=== PATIENT | female | born 1995 | race Hispanic/Latino ===

== ENCOUNTER 2016-12-13 13:51 | Emergency (ER) | payer OTHER, SELFPAY ==
[2016-12-13 17:45] LABS: Bilirubin Negative (Negative); Blood, Urine Negative (Negative); Glucose, Urine (Dipstick) Negative (Negative); Ketone, Urine Negative (Negative); Nitrite Negative (Negative); Protein, Urine (Dipstick) Negative (Neg-Trace)
[2016-12-13 17:52] LABS: Hematocrit 29.5 % (36.0-47.0); Mean Platelet Volume 8.9 fL (7.4-10.4); Red Blood Cell (RBC) Count 4.37 mill/uL (4.20-5.40); White Blood Cell (WBC) Count 7.9 thou/uL (4.8-10.8)
[2016-12-13] MEDS ORDERED: Ketorolac Tromethamine 30 MG/ML VIAL ONE (18:07)
[2016-12-13 18:11] LABS: #Basophils 0.1 thou/uL (0.0-0.2); #Eosinphils 0.2 thou/uL (0.0-0.7); #Lymphocytes 1.8 thou/uL (1.20-3.40); #Monocytes 0.4 thou/uL (0.11-0.59); #Neutrophils 5.4 thou/uL (1.40-6.50); %Basophils 0.8 % (0.0-1.0); %Eosinophils 2.8 % (0.0-10.0); %Lymphocytes 23.2 % (21.0-51.0); %Monocytes 5.1 % (0.0-10.0); Anisocytosis SLIGHT = 6-15 cells (100X) (0-5/hpf); Hypochromia SLIGHT = 6-15 cells (100X) (0-5/hpf); Microcytosis SLIGHT = 6-15 cells (100X) (0-5/hpf); Ovalocytes SLIGHT = 2-5 cells (100X) (0-1/hpf); Poikilocytosis SLIGHT = 6-15 cells (100X) (0-5/hpf); Tear Drops MODERATE= 6-15 cells (100X) (0-1/hpf)
[2016-12-13 18:13] LABS: ALT (SGPT) 23 U/L (8-55); AST (SGOT) 30 U/L (5-34); Alkaline Phosphatase 121 U/L (40-150); Anion Gap 11 mmol/L (10-20); BUN (Urea Nitrogen) 7 mg/dL (7.0-18.7); Bilirubin, Total 0.3 mg/dL (0.2-1.2); CK (CPK) 59 U/L (29-168); Calc. Creatinine Clearance 0 mL/min (70-130); Calcium 9.1 mg/dL (7.8-10.44); Carbon Dioxide 26 mmol/L (22-29); Chloride 105 mmol/L (98-107); Estimated GFR-MDRD Greater than 90; Globulin 4.5 g/dL (2.4-3.5); Lipase 84 U/L (8-78); Protein, Total 8.2 g/dL (6.0-8.3)
--- NOTE | 2016-12-13 19:30 | RAD ---
AP VIEW CHEST: 12/13/16 HISTORY: Dizziness, altered mental status. AP view chest is obtained. The lungs are well aerated. No evidence of active intrathoracic disease seen. No evidence of effusio ns, pneumonia or pneumothorax seen. IMPRESSION: Unremarkable AP view chest. POS: [facility]
== END 2016-12-13 18:55 | disposition home or self-care (01) ==
LOC: ERS 13:51
DX: D64.9 Anemia, unspecified (principal); F32.9 Major depressive disorder, single episode, unspecified; F17.200 Nicotine dependence, unspecified, uncomplicated
CPT/HCPCS: 36415; 71010; 80053; 81003; 82550; 83690; 84703; 85025; 93005; 99406; J1885

== ENCOUNTER 2017-09-09 23:19 | Emergency (ER) | payer SELFPAY ==
[2017-09-10 00:01] LABS: ALT (SGPT) 19 U/L (8-55); AST (SGOT) 31 U/L (5-34); Albumin 3.8 g/dL (3.5-5.0); Alkaline Phosphatase 129 U/L (40-150); Anion Gap 13 mmol/L (10-20); BUN (Urea Nitrogen) 12 mg/dL (7.0-18.7); Bilirubin, Total 0.5 mg/dL (0.2-1.2); Calc. Creatinine Clearance 0 mL/min (70-130); Calcium 9.1 mg/dL (7.8-10.44); Carbon Dioxide 24 mmol/L (22-29); Chloride 105 mmol/L (98-107); Estimated GFR-MDRD 66; Globulin 4.8 g/dL (2.4-3.5); Glucose 133 mg/dL (70-105); Potassium 3.8 mmol/L (3.5-5.1); Protein, Total 8.6 g/dL (6.0-8.3); Sodium 138 mmol/L (136-145)
[2017-09-10 00:11] LABS: Bilirubin Small (Negative); Blood, Urine Negative (Negative); Clarity CLOUDY (Clear); Glucose, Urine (Dipstick) Negative (Negative); Leukocyte Negative (Negative); Nitrite Negative (Negative); Protein, Urine (Dipstick) 30 mg/dL (Neg-Trace); Specific Gravity, Urine 1.031 (1.002-1.036)
[2017-09-10 00:13] LABS: Bacteria/HPF None Seen HPF (None Seen); Hyaline Casts/LPF 0-3 HYALINE CAST LPF (0-3 Hyaline); RBC/HPF None Seen HPF (0-3); Squamous Epithelial None Seen HPF (0-3); WBC/HPF None Seen HPF (0-3)
[2017-09-10 00:31] LABS: Pregnancy Test - Urine (BHCG) Negative (Negative); Pregu Control Background? CLEAR/WHITE (CLR/WHITE); Pregu Control Bar Appear? YES (CONTROL BAR); Specific Gravity 1.031 (1.002-1.036)
[2017-09-10 00:42] LABS: #Lymphocytes 1.3 thou/uL (1.20-3.40); #Monocytes 0.5 thou/uL (0.11-0.59); %Basophils 0.5 % (0.0-1.0); %Eosinophils 0.4 % (0.0-10.0); %Lymphocytes 12.3 % (21.0-51.0); %Monocytes 4.3 % (0.0-10.0); %Neutrophils 82.6 % (42.0-75.0); Anisocytosis SLIGHT = 6-15 cells (100X) (0-5/hpf); Crenated RBC SLIGHT = 1-5 cells (100X) (None Seen); Hemoglobin 7.6 g/dL (12.0-16.0); MDiff Complete? YES; Mean Corpuscular HGB CONC 30.1 g/dL (32.0-36.0); Mean Corpuscular Hemoglobin 18.8 pg (27.0-31.0); Mean Corpuscular Volume 62.4 fL (78.0-98.0); Mean Platelet Volume 9.1 fL (7.4-10.4); Microcytosis SLIGHT = 6-15 cells (100X) (0-5/hpf); PLT Morphology Comment Appears Adequate; Platelet Count 461 thou/uL (130-400); Red Blood Cell (RBC) Count 4.03 mill/uL (4.20-5.40); Reflex for Review?? YES; White Blood Cell (WBC) Count 10.9 thou/uL (4.8-10.8)
[2017-09-10] MEDS ORDERED: Ondansetron ODT 4 MG TAB ONE (03:27)
[2017-09-10] MEDS ORDERED: Lidocaine Viscous Sol 2% 15 ml UD Cup ONE (03:27)
[2017-09-10] MEDS ORDERED: Mag-Al 1200 mg/1200 mg/30 ML UDCUP ONE (03:27)
== END 2017-09-10 06:31 | disposition left against medical advice (07) ==
LOC: ERS 23:19
DX: R10.13 Epigastric pain (principal); D64.9 Anemia, unspecified; Z87.891 Personal history of nicotine dependence
CPT/HCPCS: 36415; 80053; 81003; 81015; 81025; 83690; 85025; 85060; 96360; Q0162

== ENCOUNTER 2017-09-12 12:48 | Inpatient (IN) | payer SELFPAY ==
[~2017-09-12 12:48] MED LIST: ISOVUE-370 76%-LOCM 1 ML ONE
[2017-09-12 14:31] LABS: #Eosinphils 0.1 thou/uL (0.0-0.7); #Lymphocytes 1.4 thou/uL (1.20-3.40); #Monocytes 0.4 thou/uL (0.11-0.59); %Basophils 0.4 % (0.0-1.0); %Eosinophils 2.1 % (0.0-10.0); %Lymphocytes 23.4 % (21.0-51.0); %Monocytes 7.2 % (0.0-10.0); %Neutrophils 66.9 % (42.0-75.0); Hemoglobin 6.7 g/dL (12.0-16.0); Mean Corpuscular HGB CONC 28.7 g/dL (32.0-36.0); Mean Corpuscular Hemoglobin 18.5 pg (27.0-31.0); Mean Corpuscular Volume 64.4 fL (78.0-98.0); Platelet Count 353 thou/uL (130-400)
[2017-09-12 14:36] LABS: BHCG - Serum Negative (NEGATIVE); Pregs Control Background? CLEAR/WHITE (CLR/WHITE); Pregs Control Bar Appear? YES (CONTROL BAR)
[2017-09-12 14:50] LABS: ALT (SGPT) 13 U/L (8-55); AST (SGOT) 21 U/L (5-34); Albumin 3.4 g/dL (3.5-5.0); Alkaline Phosphatase 103 U/L (40-150); Anion Gap 8 mmol/L (10-20); BUN (Urea Nitrogen) 4 mg/dL (7.0-18.7); Bilirubin, Total 0.3 mg/dL (0.2-1.2); CK (CPK) 82 U/L (29-168); Calc. Creatinine Clearance 0 mL/min (70-130); Carbon Dioxide 28 mmol/L (22-29); Chloride 107 mmol/L (98-107); Estimated GFR-MDRD Greater than 90; Globulin 4.1 g/dL (2.4-3.5); Glucose 99 mg/dL (70-105); Potassium 3.9 mmol/L (3.5-5.1); Protein, Total 7.5 g/dL (6.0-8.3); Sodium 139 mmol/L (136-145)
[2017-09-12 14:54] LABS: Anisocytosis SLIGHT = 6-15 cells (100X) (0-5/hpf); Elliptocytes SLIGHT = 2-5 cells (100X) (0-1/hpf); Hypochromia SLIGHT = 6-15 cells (100X) (0-5/hpf); MDiff Complete? YES; Microcytosis MODERATE=15-30 cells (100X) (0-5/hpf); Ovalocytes SLIGHT = 2-5 cells (100X) (0-1/hpf); PLT Morphology Comment Appears Adequate; Poikilocytosis SLIGHT = 6-15 cells (100X) (0-5/hpf); Polychromasia SLIGHT = 2-3 cells (100X) (0-2/hpf); Schistocytes SLIGHT = 2-5 cells (100X) (0-1/hpf)
--- NOTE | 2017-09-12 15:28 | CT ---
CT ANGIOGRAM THORAX WITH IV CONTRAST AND 3D RECONSTRUCTIONS: Date: 09-12-17 History: Dyspnea. Shortness of breath for one day. Bilateral arm weakness. Diaphoresis. Comparison: None available. FINDINGS: No filling defects are seen in the pulmonary arteries to suggest a pulmonary embolus. There is fluid seen within the anterior superior mediastinum adjacent to the thoracic aorta. This landers s demonstrate fluid attenuation and is likely attributable to extension of pericardial recess in this region. Thoracic aorta is normal in caliber without evidence of an aortic dissection. The lungs are clear. The wall of the gallbladder is edematous and there is mild inflammatory changes seen in the region of the portahepatis and adjacent to the region of the neck of the gallbladder. Findings may be related to cholecystitis in the correct clinical scenario. There is mild nonspecific stranding adjacent to th e periumbilical vein and adjacent to the anterior aspect of the left hepatic lobe. Images of the upper abdomen demonstrates normal CT appearance for arterial phase imaging. IMPRESSION: 1. Gallbladder wall edema and adjacent inflammatory changes. Findings may potentially be related to c holecystitis in the correct clinical scenario. Right upper quadrant ultrasound is suggested for channing hometh er evaluation. No biliary ductal dilatation is appreciated. 2. No CT evidence of a pulmonary embolus. 3. Above findings discussed with Dr. Guo in the Emergency Department on 09-12-17 at 1502 hours. POS: [facility]
[2017-09-12 16:57] LABS: Prothrombin Time 13.1 SEC (12.0-14.7)
[2017-09-12 17:02] LABS: PTT 31.7 SEC (22.9-36.1)
--- NOTE | 2017-09-12 18:10 | ULT ---
RIGHT UPPER QUADRANT ULTRASOUND 09/12/17 HISTORY: Shortness of breath and abdominal pain for one day. Bilateral arm weakness. Recent CT angiogram of est demonstrated a normal appearance of the gallbladder. FINDINGS: As noted on the CTA examination, the gallbladder demonstrates diffuse wall thickening with edema of t he gallbladder wall. Gallbladder wall thickness is 1.7 cm. Only a small lumen of the gallbladder is a ppreciated. No definite gallbladder calculus is seen. There is no pericholecystic fluid identified on this exam. Common duct is normal in caliber measuring 2.3 cm. The liver is enlarged in craniocaudal dimensions measuring 18.5 cm. Liver otherwise demonstrates norm al sonographic appearance. The pancreas is mostly obscured and not well evaluated on this exam. The visualized portions of the IVC and right kidney demonstrate a normal sonographic appearance. The right kidney measures 9 cm in length. IMPRESSION: 1. Severely thickened and edematous gallbladder wall with greatest thickening in the region of t he gallbladder fundus measuring 1.7 cm. The findings could be related to cholecystitis in the correct clinical scenario, but hypoproteinemia, liver disease, or other etiologies for thickened gallbladder wall are a possibility. 2. Common duct is normal in caliber. 3. Hepatomegaly. POS: [facility]
--- NOTE | 2017-09-12 20:44 | PDOC.FPRHP ---
- History of Present Illness Chief Complaint: arm pain and vaginal spotting History of Present Illness: Ms. Diego is a 22YO female who presented to the ED today with a chief complaint of bilateral arm pain, abdominal pain, and vaginal spotting that has been ongoing for the last 2 days. Per the patient, 2 days ago she had sudden onset constant abdominal pain that she rated at 12/10 in severity. She says that the pain started in her upper abdomen and radiated all the way down to her lower abdomen. The patient could not identify any exacerbating or alleviating factors and did not try taking anything for it. She reports never having had abdominal pain like this before. In addition, the patient started to have vaginal spotting and says her LMP ended about one week ago. She denied any associated vomiting, constipation, or diarrhea but did endorse some nausea. She then decided to come to the ED and they told her that her Hgb was low. However, she left before being treated or worked up because they were having trouble starting an IV on her. Over the next 2 days the patient continued to have abdominal pain and spotting and developed B/L arm pain that was slightly worse in her right arm. She also noticed some bruising on her arms. Today the patient decided to return to the ED as after started to become progressively more fatigued and developed some SOB. She also endorses some associated diaphoresis and nausea. The patient has a menstrual history significant for abnormal uterine bleeding as she reports having very heavy periods lasting 7 days that required her to use about 36 super tampons per cycle. She says she started menses at ~ age 7 and was having this heavy menstrual bleeding up until about 1.5 years ago. For the past year and a half she reports having much director safety periods lasting about 4 days requiring her to use about 2-3 regular tampons per day. She also has a FH significant for anemia in her sister. - Allergies/Adverse Reactions Allergies Allergy/AdvReac Type Severity Reaction Status Date / Time No Known Allergies Allergy Verified 09/13/17 03:22 - Home Medications Medication Instructions Recorded Confirmed Type Ascorbic Acid [Vitamin C] 1,000 mg PO DAILY #30 tab 09/13/17 Rx Docusate [Colace] 100 mg PO BID #60 cap 09/13/17 Rx Ferrous Sulfate [Feosol] 325 mg PO BID- #60 tab 09/13/17 Rx - History PMHx: Anemia PSHx: None FHx: Anemia - sister DM - grandmother Social: Admits to former tobacco abuse but says she quit ~1 week ago. Denies any drug abuse. Admits to EtOH use on the weekends. - Review of Systems General: reports: fatigue. denies: fever/chills, night sweats Eyes: denies: eye pain, vision changes ENT: denies: nasal congestion, rhinorrhea Respiratory: reports: shortness of breath. denies: cough Cardiovascular: reports: chest pain Gastrointestinal: reports: nausea, abdominal pain. denies: vomiting, diarrhea, constipation Genitourinary: reports: other (vaginal spotting). denies: dysuria Skin: reports: other (bruising). denies: jaundice Musculoskeletal: reports: pain (in B/L arms and neck), other (no tenderness) Neurological: reports: other (no dizziness or lightheadedness). denies: numbness, weakness Psychological: denies: anxiety, depression - Vital signs BP: 120/87 HR: 73 RR: 18 Pox: 100% on RA Wt: 70kg - Physical Exam Constitutional: NAD, awake, alert and oriented, well developed HEENT: normocephalic and atraumatic (conjunctival pallor), EOMI, conjunctiva clear, grossly normal vision, grossly normal hearing Heart: RRR, normal S1/S2, no edema Lungs: CTAB, no respiratory distress, good air movement Abdomen: soft, non-tender, bowel sounds present Musculoskeletal: normal structure, normal tone, other (slightly decreased ROM in R arm 2/2 pain) Neurological: no focal deficit, CN II-XII intact Skin: good turgor, other Heme/Lymphatic: other (Brusing over L antecubital fossa) Psychiatric: normal mood and affect FMR H&P: Results - Labs Result Diagrams: 09/14/17 05:13 09/13/17 05:15 Lab results: WBC 6.0 thou/uL (4.8-10.8) 09/12/17 14:23 Hgb 6.7 g/dL (12.0-16.0) L 09/12/17 14:23 Hct 23.2 % (36.0-47.0) L 09/12/17 14:23 MCV 64.4 fL (78.0-98.0) L 09/12/17 14:23 Plt Count 353 thou/uL (130-400) 09/12/17 14:23 Neutrophils % 66.9 % (42.0-75.0) 09/12/17 14:23 Sodium 139 mmol/L (136-145) 09/12/17 14:23 Potassium 3.9 mmol/L (3.5-5.1) 09/12/17 14:23 Chloride 107 mmol/L (98-107) 09/12/17 14:23 Carbon Dioxide 28 mmol/L (22-29) 09/12/17 14:23 BUN 4 mg/dL (7.0-18.7) L 09/12/17 14:23 Creatinine 0.75 mg/dL (0.6-1.1) 09/12/17 14:23 Glucose 99 mg/dL (70-105) 09/12/17 14:23 Calcium 9.0 mg/dL (7.8-10.44) 09/12/17 14:23 Total Bilirubin 0.3 mg/dL (0.2-1.2) 09/12/17 14:23 AST 21 U/L (5-34) 09/12/17 14:23 ALT 13 U/L (8-55) 09/12/17 14:23 Alkaline Phosphatase 103 U/L (40-150) 09/12/17 14:23 Creatine Kinase 82 U/L (29-168) 09/12/17 14:23 Serum Total Protein 7.5 g/dL (6.0-8.3) 09/12/17 14:23 Albumin 3.4 g/dL (3.5-5.0) L 09/12/17 14:23 - Radiology Interpretation US - abdomen Status: report reviewed by me Additional comment: Severely thickened and edematous gallbladder; Normal common bile duct; hepatomegaly Other Status: report reviewed by me Additional comment: CTA of chest- inflamed gallbladder; no evidence of a PTE FMR H&P: A/P - Problem List (1) Symptomatic anemia Status: Acute Priority: High Code(s): D64.9 - ANEMIA, UNSPECIFIED Assessment and Plan: - Likely 2/2 iron deficiency as MCV is 64 & MHC is also low at 18 and patient has a history of abnormal uterine bleeding. Will transfuse 2 units of PRBCs, give ferrous sulfate infusion, and order iron studies. Pelvic exam was significant for spotting consistent with patient's history but no polyps or other sources to explain her abnormal bleeding were visualized on exam. Would strongly consider doing a transvaginal U/S in an outpatient setting to r/o any uterine process that could explain her abnormal bleeding and anemia. - Will do complete workup to r/o other potential causes by checking a vitamin B12, RBC folate, Hgb electrophoresis, and peripheral smear. (2) Abdominal pain Status: Acute Code(s): R10.9 - UNSPECIFIED ABDOMINAL PAIN Qualifiers: Abdominal location: upper abdomen, unspecified Qualified Code(s): R10.10 - Upper abdominal pain, unspecified Assessment and Plan: - Likely due to cholecystitis as seen on abdominal U/S. - HIDA scan ordered for in the morning. General surgery is on board. - Will keep her on protonix per general surgery's orders. Will order zofran for nausea and tylenol for pain PRN. FMR H&P: Upper Level - Pertinent history 22 yo HF PMH anemia and dysfunctional uterine bleeding. Presents as ER bounceback with CC of SOB and abdominal pain. States pain started in upper abdomen and radiated to lower abdomen. Had resolved by the time of my examination. In regards to her anemia, state until 18 months ago she had heavy menstrual cycles requiring 5-6 tampons daily for 7 days. In the past 18 months, her bleeding has slowed in volume and number of days. Was seen in ER 3 days ago and had hemoglobin of 7.6. Was given instructions to follow up outpatient. ER: Labs, CTA- chest, RUQ US. Gen surg was consulted in ER and wanted inpatient HIDA scan. - Pertinent findings Vitals: WNL GEN: NAD ENT: conjunctival palor CV: RRR no murmur Lung: CTA-B, normal effort : normal appearing vaginal mucosa with scant amount of blood in vaginal vault. Unable to completely assess the cervix due to patient discomfort but anterior portion appeared normal. Labs: Hemoglobin 6.7, MCV 64 RUQ US: Thickened and edematous gallbladder, otherwise WNL CTA-Lung: No PE - Plan Date/Time: 09/12/172021 I, Angel Sidhu MD, have evaluated this patient and agree with findings/plan as outlined by international logistics manager resident. Pertinent changes/additions are listed here. 1. Symptomatic Microcytic anemia: Type, cross, and transfuse 2 units PRBCs. Recheck H&H 4 hours post transfusion. Additionally, will give iron infusion. Will give lasix if signs of fluid overload. Check peripheral smear, iron, TIBC , ferritin, B12, RBC folate, and hemoglobin electrophoresis. Likely due to history of heavy menstrual bleeding but will attempt to better characterize due to family history. Consider pelvic US to evaluate for polyps vs fibroids. May need outpatient MILK TRUCK DRIVER evaluation. 2. Possible cholecystitis: general surgery consulted. HIDA scan in the morning. 3. Diet: NPO @0000, maintenance fluids given 4. PPx: none 5. CODE: Full Dispo: Inpatient, medical, >[address] Cornejo. Attending Addendum - Attending Addendum Date/Time: 09/12/17 [id number] I personally evaluated the patient and discussed the management with Dr. Gibson and Dr. Sidhu I agree with the History, Examination, Assessment and Plan documented above with any addition or exceptions noted below. Healthy 22 yo female admitted for symptomatic anemia. Likely iron deficiency but reports a family history of anemia and chronic history of anemia. Patient appears to have possible etiology related to DUB. Studies pending. Would evaluate with hemoglobin electrophoresis as well. Gen surg to eval due to gallbladder disease. Will start with 1 unit pRBCs. Does not appear to have anemia related to GI disease but would consider as cause. FOBT ordered. Also consider malabsorptive disease. Mamta
[2017-09-12] MEDS ORDERED: Ondansetron ODT 4 MG TAB PO PRN (21:04)
[2017-09-12] MEDS ORDERED: Acetaminophen 500 MG TAB PO PRN (21:05)
[2017-09-12 21:59] LABS: Band 5 % (5-11); Eosinophils 3 % (0-10); Hemoglobin 9.7 g/dL (12.0-16.0); Hypochromia MODERATE=16-30 cells (100X) (0-5/hpf); Lymphocytes 31 % (21-51); MDiff Complete? YES; Mean Corpuscular HGB CONC 29.9 g/dL (32.0-36.0); Mean Corpuscular Hemoglobin 20.2 pg (27.0-31.0); Mean Corpuscular Volume 67.6 fL (78.0-98.0); Mean Platelet Volume 9.5 fL (7.4-10.4); Microcytosis MODERATE=15-30 cells (100X) (0-5/hpf); Monocytes 4 % (0-10); Neutrophil 57 % (42-75); Nucleated RBC 1 % (0); Ovalocytes SLIGHT = 2-5 cells (100X) (0-1/hpf); PLT Morphology Comment Appears Adequate; Platelet Count 400 thou/uL (130-400); RBC Distribution Width 20.8 % (11.5-14.5); Red Blood Cell (RBC) Count 4.79 mill/uL (4.20-5.40); White Blood Cell (WBC) Count 5.5 thou/uL (4.8-10.8)
[2017-09-12 22:02] LABS: Iron 26 ug/dL (50-170); Iron Binding Capacity, Total 384 mcg/dL (265-497)
[2017-09-12] MEDS: Sodium Chloride 0.9% 1,000 ML IV SCH (22:14)
[2017-09-12] MEDS: Sodium Ferric Gluconate 250 MG in Sodium Chloride 0.9% 100 ML IVPB SCH (22:18)
[2017-09-12] MEDS: Pantoprazole 40 MG VIAL IVP SCH (22:18)
--- NOTE | 2017-09-12 22:40 | HP ---
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 She is unemployed. She is 0, para 0. She presents with a history of anemia without history of hematemesis, blood per stool or abn ormal stools. There is no history of black stools. She was found to have a hemoglobin of 6.7. Prev ious hemoglobin has at this hospital been 9.7-7.6. Last hemoglobin on 09/09/2017. Patient states he r menstruation is not heavy. She also complained of abdominal pain and some dyspnea. Dr. Marcial Guo saw her. Her renal function tests and liver function tests were normal. CT angio was obtained and w as unremarkable for PE. There is gallbladder edema and adjacent inflammatory changes. There is no e vidence of embolus. Patient subsequently went on to have an abdominal ultrasound. This revealed stephany e edema, no stones, normal bile duct caliber. Patient reports abdominal pain, epigastric. There has been no history of prior epigastric pain. ALLERGIES: None. TOBACCO: Occasionally. MEDICATIONS: None. PAST SURGICAL HISTORY: Noncontributory. PAST MEDICAL HISTORY: Noncontributory. REVIEW OF SYSTEMS: Noncontributory. PHYSICAL EXAMINATION: VITAL SIGNS: Blood pressure 110/67, respiratory rate 16, heart rate 72. HEENT: Unremarkable. LUNGS: Clear to auscultation. CARDIAC: Regular rate and rhythm without murmur or gallop. ABDOMEN: Soft. Mild tenderness in the right abdomen, left abdomen. No peritoneal signs. Negative Ren sign. EXTREMITIES: Unremarkable. ASSESSMENT AND PLAN: Anemia of uncertain etiology. Abdominal pain of uncertain etiology. Ultrasoun d of her gallbladder. It does not reveal gallstones. There is no prior history of biliary colic. W ith the CAT scan findings with her epigastric pain, HIDA scan ejection fraction could be obtained jeri orrow. I will be out tomorrow. Dr. Robertson will be covering for me. We would recommend consulting Gastroenterology for her GI workup.
[2017-09-12 22:41] VITALS: BMI 26.7
[2017-09-13 01:12] LABS: Hemoglobin 8.9 g/dL (12.0-16.0)
[2017-09-13] MEDS: Sodium Chloride 0.9% 1,000 ML IV SCH ×3 (04:00→20:54)
[2017-09-13 06:15] LABS: ALT (SGPT) 14 U/L (8-55); AST (SGOT) 19 U/L (5-34); Albumin 3.2 g/dL (3.5-5.0); Alkaline Phosphatase 94 U/L (40-150); Anion Gap 9 mmol/L (10-20); BUN (Urea Nitrogen) 4 mg/dL (7.0-18.7); Bilirubin, Total 0.5 mg/dL (0.2-1.2); Calc. Creatinine Clearance 131 mL/min (70-130); Calcium 8.8 mg/dL (7.8-10.44); Carbon Dioxide 26 mmol/L (22-29); Chloride 107 mmol/L (98-107); Estimated GFR-MDRD Greater than 90; Glucose 85 mg/dL (70-105); Potassium 3.7 mmol/L (3.5-5.1); Protein, Total 7.2 g/dL (6.0-8.3); Sodium 138 mmol/L (136-145)
--- NOTE | 2017-09-13 06:59 | PDOC.FM ---
- Subjective Subjective: Patient is resting comfortably. She reports feeling much better today. Abd pain and SOB is resolved. No acute events overnight. - Objective MAR Reviewed: Yes Vital Signs & Weight: Vital Signs (12 hours) Temp Pulse Resp BP Pulse Ox 09/13/17 04:05 98 F 58 L 16 99/70 96 09/12/17 23:54 98.8 F 61 20 94/63 99 09/12/17 21:14 99.1 F 52 L 20 97 09/12/17 21:05 99.1 F 52 L 20 93/62 97 Weight Weight 68.492 kg Result Diagrams: 09/13/17 01:04 09/13/17 05:15 <Anamaria Vásquez - Last Filed: 09/13/17 08:43> - Objective Vital Signs & Weight: Vital Signs (12 hours) Temp Pulse Resp BP Pulse Ox 09/13/17 08:00 98.1 F 71 16 96 09/13/17 07:15 98.1 F 71 16 101/66 96 09/13/17 04:05 98 F 58 L 16 99/70 96 Weight Weight 68.492 kg Result Diagrams: 09/13/17 01:04 09/13/17 05:15 <Gertrude Abdalla - Last Filed: 09/13/17 12:49> Phys Exam - Physical Examination Constitutional: NAD HEENT: moist MMs conjunctival pallor Respiratory: no wheezing, no rales, clear to auscultation bilateral Cardiovascular: RRR, no significant murmur Gastrointestinal: soft, non-tender Musculoskeletal: no edema, pulses present Neurological: moves all 4 limbs Psychiatric: A&O x 3 <Anamaria Vásquez - Last Filed: 09/13/17 08:43> Dx/Plan (1) Symptomatic anemia Code(s): D64.9 - ANEMIA, UNSPECIFIED Status: Acute (2) Iron deficiency anemia Code(s): D50.9 - IRON DEFICIENCY ANEMIA, UNSPECIFIED Status: Acute (3) Abdominal pain Code(s): R10.9 - UNSPECIFIED ABDOMINAL PAIN Status: Acute QualifierTitle: Abdominal location: upper abdomen, unspecified Qualified Code(s): R10.10 - Upper abdominal pain, unspecified - Plan Plan: Symptomatic Anemia 2/2 Fe Deficiency Anemia - s/p 1u pRBC's last night. Initial Hg 6.7, today 8.9. - likely caused by heavy menstrual cycles - could be a component of poor nutrition with low albumin. prealbumin pending - S/p Fe transfusion x2 - Continue oral Ferrous Sulfate, Colace, and Vit C - will likely need tv u/s outpatient Abdominal Pain with Gallbladder Edematous Changes on U/S - HIDA scan this morning - Abd pain has since resolved - Gen Surg and GI on board - outpatient vs inpatient management Dispo: d/c pending HIDA scan and recs. <Anamaria Vásquez - Last Filed: 09/13/17 08:43> Attending Addendum - Attending Addendum Date/Time: 09/13/17 [id number] I personally evaluated the patient at 0940 am and discussed the management with Dr. Vásquez I agree with the History, Examination, Assessment and Plan documented above with any addition or exceptions noted below. Symptomatic iron deficiency anemia- probably combination of dietary deficiency and menorrhagia. S/P 1 unit PRBC and IV iron replacement. Will d/c home on oral iron. Abdominal pain- now resolved- HIDA scan pending this am. Expect d/c this afternoon with o/p f/u <Gertrude Abdalla - Last Filed: 09/13/17 12:49>
[2017-09-13] MEDS: Pantoprazole 40 MG VIAL IVP SCH ×2 (09:14→20:56)
[2017-09-13] MEDS: Docusate 100 MG CAP PO SCH ×2 (09:29→20:56)
[2017-09-13] MEDS: Ascorbic Acid 500 mg Chewable Tablet PO SCH (09:29)
[2017-09-13] MEDS: Sodium Ferric Gluconate 250 MG in Sodium Chloride 0.9% 100 ML IVPB SCH (13:41)
--- NOTE | 2017-09-13 14:43 | NM ---
NUCLEAR MEDICINE HEPATOBILIARY SCAN: Date: 09/13/17 HISTORY: 22-year-old female with epigastric pain and severe mural thickening of gallbladder found on ultrasoun d and CT. TECHNIQUE: [id number] dose: 4.5 mCi Kinevac (CCK analog) dose: 1.3 mcg x 2 Because of prolonged NPO status, patient was pretreated with Kinevac prior to imaging. [id number] injected IV. Dynamic anterior scintigraphy of abdomen for 1 hour. Kinevac injected a gain. Additional dynamic anterior scintigraphy of abdomen. Counts obtained over gallbladder. Time-ac tivity curve generated. FINDINGS: There is normal uptake in the liver. Washout of activity from the liver is somewhat slow. Activity be gins to fill the gallbladder lumen at an appropriate time, approximately 11 minutes. The gallbladder fills normally. Bowel activity is visualized at approximately 33 minutes. The gallbladder ejection fr action is 23%. IMPRESSION: 1. Abnormally low gallbladder ejection fraction of 23%, representing gallbladder dysfunction. 2. Somewhat delayed washout of liver: recommend clinical correlation regarding possible hepatocellula r dysfunction. POS: [facility]
[2017-09-13] MEDS: Ferrous Sulfate 325 MG TAB PO SCH (16:38)
--- NOTE | 2017-09-14 00:23 | CON ---
DATE OF CONSULTATION: 09/13/2017 REASON FOR CONSULTATION: Iron deficiency anemia, reported abdominal pain. HISTORY OF PRESENT ILLNESS: Ms. Diego is a 22-year-old who came to the emergency room on 09/09/2017 with complaints of abdominal pain for 1 day, it was in the epigastrium. It felt like she had been punched in the stomach. She had also had some spotting at the end of her period, which is little bit unusual for her. She denied any other abdominal pain or nausea or reflux. She had no lower abdominal symptoms. Apparently, she had an IV started and then it made her feel funny, so she decided to leave. She returned to the ER yesterday with complaints of shortness of breath and bilateral leg pain. This has been going on for a couple of days. She felt this is related to the IV when she had been in the emergency room. She was not complaining about abdominal pain at that time. Here, she was found to have a hemoglobin of 6.7, had been 7.6 on the when she was here. Her MCV was low at 62. Her platelet count was 460. Her hemoglobin was 10. INR was normal. Comprehensive metabolic profile was notable for a BUN of 4, creatinine 0.72. Electrolytes were otherwise normal. Liver function tests were normal. test was negative. B12 was normal. Lipase was normal. She was low on serum iron 26, ferritin 5.8. Urinalysis was negative. Urine drug screen was not performed. The patient was admitted and given a transfusion. She also had several imaging studies performed. First, a CAT scan of the chest and thorax was done, because she was short of breath and no pulmonary embolus was seen, but there was some gallbladder wall edema. So then, she had an ultrasound of her gallbladder and this showed a thickened gallbladder wall and the fundus up to 1.7 cm, also she had some hepatomegaly. Regarding her abdominal pain, that is gone today. She was seen by Dr. Acuna, he got a HIDA scan, which was done today. She denies any reproduction of symptoms with that scan and the HIDA scan showed an ejection fraction of 23%, which was read as low. Presently, she complains of no pain. She is wondering if she needed to get home. She wants to eat. She has been on liquids. She has no history of melena, hematochezia, hematemesis, or reflux. She denies NSAID use. She does not drink. She used to drink a lot and do drugs including cocaine and marijuana, but does not do that anymore. She states also many years ago, she had very heavy menstrual cycles, but now she has a menstrual cycle lasting 4 days once a month, uses about 16 or 17 tampons, but has no heavy clots or associated pain. She denies any change in bowel function. She denies any weight loss or change in appetite. She has formed stools once daily. PAST MEDICAL HISTORY: History of substance abuse including cocaine, marijuana. She denies doing this now. History of heavy alcohol use in the past. She denies doing that now. History of chronic iron deficiency anemia. ALLERGIES: None known. HOME MEDICATIONS: None. PAST SURGICAL HISTORY: Negative. FAMILY HISTORY: She has a sister who is anemic, but only when she has her kids. There is no family history of celiac disease, colorectal cancer, inflammatory bowel disease. REVIEW OF SYSTEMS: As per admission HPI. PRESENT MEDICATIONS: Tylenol, vitamin C, Colace, iron, Zofran, Protonix, normal saline. PHYSICAL EXAMINATION: VITAL SIGNS: Temperature is 99, pulse 65, blood pressure 106/69. GENERAL: The patient is sitting in bed. LUNGS: Clear. HEART: Regular rate and rhythm without clicks or murmurs. ABDOMEN: Soft and nontender. There is no rebound. There is no guarding. EXTREMITIES: No clubbing, cyanosis, or edema. There is no palpable hepatosplenomegaly. LABORATORY STUDIES: Otherwise, AST and ALT are 19 and 14, albumin 3.2, globulin little bit elevated at 4. ASSESSMENT: Profound microcytic anemia with iron deficiency in a 22-year-old female. This is likely related to menstrual loss. She states that about 3-4 years ago, she had very heavy periods, but she does not anymore. She denies any overt gastrointestinal bleeding, melena, hematochezia, hematemesis, or even gastrointestinal symptoms other than abdominal pain which has now resolved. She denies heavy NSAID use. Differential diagnosis would include malabsorption , poor iron intake, gastrointestinal blood loss, menstrual blood loss. RECOMMENDATIONS: 1. Hemoccult stool. I have offered her an EGD tomorrow with regard to the epigastric pain she had had. She is thinking about that. 2. Fatty liver. She has got a little bit of a low albumin and high globulin gap. She has normal liver function tests. With her history of heavy drug use in the past, I would recommend screening for hepatitis B and C and HIV. 3. In regard to her gallbladder appearance, I do not know how to explain that. She has no pain there now. This may have been due to profound anemia and low oncotic pressures. She also some fatty liver, possibly related to her previous substance abuse. 4. I would consider evaluation of HIV and hepatitis B and C with regard to her previous history of substance abuse, fatty liver, and elevated globulin gap. 5. We will plan for EGD if the patient stays tomorrow. 6. At this point in time, she has no pain. I am not sure if there is any role for cholecystectomy. The HIDA scan is little bit low, but she had no reproduction of symptoms and she has no signs of acute cholecystitis. We will follow along with you. MTDD
[2017-09-14] MEDS: Sodium Chloride 0.9% 1,000 ML IV SCH ×3 (03:01→18:37)
[2017-09-14 06:17] LABS: Hemoglobin 8.2 g/dL (12.0-16.0); Mean Corpuscular HGB CONC 30.3 g/dL (32.0-36.0); Mean Corpuscular Hemoglobin 20.4 pg (27.0-31.0); Mean Corpuscular Volume 67.2 fL (78.0-98.0); Mean Platelet Volume 9.3 fL (7.4-10.4); Platelet Count 374 thou/uL (130-400); RBC Distribution Width 20.3 % (11.5-14.5); Red Blood Cell (RBC) Count 4.03 mill/uL (4.20-5.40); White Blood Cell (WBC) Count 7.1 thou/uL (4.8-10.8)
[2017-09-14 07:05] LABS: HBCM Index 0.32 S/CO (0-0.79); HIV (1/2) Antibody/Antigen Non-Reactive (NonReactive); HIV 1/2 INDEX 0.32 S/CO (<1.00); Hep B Surf Ag Non-Reactive S/CO (NonReactive); Hepatitis B Core IGM Abs Non-Reactive (NonReactive)
--- NOTE | 2017-09-14 07:24 | PDOC.FM ---
- Subjective Subjective: Patient is doing well, tolerating diet. Still reports spotting. No longer having abdominal pain. NAEO. - Objective MAR Reviewed: Yes Vital Signs & Weight: Vital Signs (12 hours) Temp Pulse Resp BP Pulse Ox 09/14/17 04:00 98.4 F 89 16 95/61 09/14/17 00:00 98.8 F 74 16 97/65 96 09/13/17 20:06 98.3 F 80 16 93/60 96 09/13/17 20:00 98.3 F 80 16 96 Weight Weight 68.492 kg I&O: 09/13/17 09/14/17 09/15/17 06:59 06:59 06:59 Intake Total 2410 480 Balance 2410 480 Result Diagrams: 09/14/17 05:13 09/13/17 05:15 <Anamaria Vásquez - Last Filed: 09/14/17 10:53> - Objective Vital Signs & Weight: Vital Signs (12 hours) Temp Pulse Resp BP Pulse Ox 09/14/17 07:57 98.3 F 83 16 100/66 96 09/14/17 07:50 98.3 F 83 16 96 09/14/17 04:00 98.4 F 89 16 95/61 09/14/17 00:00 98.8 F 74 16 97/65 96 Weight Weight 68.492 kg I&O: 09/13/17 09/14/17 09/15/17 06:59 06:59 06:59 Intake Total 2410 540 Balance 2410 540 Result Diagrams: 09/14/17 05:13 09/13/17 05:15 <Gertrude Abdalla - Last Filed: 09/14/17 11:13> Phys Exam - Physical Examination Constitutional: NAD HEENT: moist MMs Respiratory: no wheezing, no rales, clear to auscultation bilateral Cardiovascular: RRR, no significant murmur Gastrointestinal: soft, non-tender, no distention, positive bowel sounds Neurological: moves all 4 limbs Psychiatric: A&O x 3 <Anamaria Vásquez - Last Filed: 09/14/17 10:53> Dx/Plan (1) Symptomatic anemia Code(s): D64.9 - ANEMIA, UNSPECIFIED Status: Acute (2) Iron deficiency anemia Code(s): D50.9 - IRON DEFICIENCY ANEMIA, UNSPECIFIED Status: Acute (3) Abdominal pain Code(s): R10.9 - UNSPECIFIED ABDOMINAL PAIN Status: Acute QualifierTitle: Abdominal location: upper abdomen, unspecified Qualified Code(s): R10.10 - Upper abdominal pain, unspecified - Plan Plan: Symptomatic Anemia 2/2 Fe Deficiency Anemia - s/p 1u pRBC's Initial Hg 6.7, today 8.2. - likely caused by heavy menstrual cycles - could be a component of poor nutrition with low albumin and low/normal prealbumin. Consult special police - S/p Fe transfusion x2 - Continue oral Ferrous Sulfate, Colace, and Vit C - will likely need tv u/s outpatient - will evaluate GI cause of bleeding with EGD today - FOBT pending - peripheral smear consistent with Fe def anemia - Hg electrophoresis pending Abdominal Pain with Gallbladder Edematous Changes on U/S - HIDA scan wnl - Abd pain has since resolved - Gen Surg and GI on board - outpatient management for possible future cholecystectomy Dispo: d/c after EGD today <Anamaria Vásquez - Last Filed: 09/14/17 10:53> Attending Addendum - Attending Addendum Date/Time: 09/14/17 1111 I personally evaluated the patient at 0910 am and discussed the management with Dr. Vásquez. I agree with the History, Examination, Assessment and Plan documented above with any addition or exceptions noted below. Symptomatic iron deficiency anemia- presumed secondary to combination of amenorrhea and nutritional deficiency- s/p PRBC xfusion and iron infusion. Patient now asymptomatic. home on oral iron after EGD to rule out gastritis/GI cause. Mildly abnormal HIDA scan- patient now pain free. O/p followup if symptoms recur. Stable for d/c this pm pending GI recs. <Gertrude Abdalla - Last Filed: 09/14/17 11:13>
[2017-09-14] MEDS: Ferrous Sulfate 325 MG TAB PO SCH ×2 (08:47→17:11)
[2017-09-14] MEDS: Docusate 100 MG CAP PO SCH (08:47)
[2017-09-14] MEDS: Ascorbic Acid 500 mg Chewable Tablet PO SCH (08:48)
[2017-09-14] MEDS: Pantoprazole 40 MG VIAL IVP SCH (08:48)
[2017-09-14 10:32] LABS: HBSAg Index 0.19 S/CO (0-0.99)
[2017-09-14 10:59] LABS: Hep B Surf AB Reactive (NonReactive)
[2017-09-14 11:00] LABS: HBSAB Concentration 13.92 mIU/mL
[2017-09-14 15:42] VITALS: BP 98/68; TEMP 97.6
--- NOTE | 2017-09-14 20:04 | PDOC.GSPN ---
Surgery Progress Note: Subj - Subjective Narrative: Patient was seen prior to her EGD. Her HIDA scan yesterday did not reproduce her previous symptoms, although her ejection fraction was low at 23%. She is completely nontender to palpation and has not had any nausea or abdominal pain recently. She understands that her gallbladder is likely not functioning well and she may benefit from laparoscopic cholecystectomy, but she does not wish to proceed with that at this time. She can return to see Dr. Acuna if her symptoms recur. Surgery Progress Note: Obj - Vital signs Vital signs: Vital Signs - Most Recent Temp Pulse Resp BP Pulse Ox 97.6 F 53 L 18 98/68 99 09/14/17 15:35 09/14/17 15:35 09/14/17 15:35 09/14/17 15:35 09/14/17 15:35 Surgery Progress Note: Results - Labs Result Diagrams: 09/14/17 05:13 09/13/17 05:15 Lab results: Laboratory Results - last 24 hr 09/14/17 06:02 Hep Bs Antigen Non-Reactive Hep Bs Antibody Reactive Hep Bs Antibody Index 13.92 Hep B Core IgM Ab Non-Reactive HIV 1&2 Antigen & Ab Non-Reactive - Radiology Interpretation US - abdomen Status: report reviewed by me Other Status: report reviewed by me
--- NOTE | 2017-09-14 22:54 | OP ---
DATE OF PROCEDURE: 09/14/2017 PREPROCEDURE DIAGNOSES: 1. Severe iron deficiency anemia. 2. History of menorrhagia and spotting. 3. No history of GI bleeding. Stool Hemoccults have been ordered, but she has had no bowel movement s, apparently. 4. Epigastric pain on admission, which is now resolved. 5. Questionable gallbladder thickening on ultrasound on admission and on CAT scan this admission wit h HIDA scan with low ejection fraction, symptoms now resolved. Awaiting Surgery input. POSTPROCEDURE DIAGNOSES: Normal esophagogastroduodenoscopy, no signs of celiac ulcers or gastritis o r esophagitis. RECOMMENDATIONS: 1. Iron replacement therapy. 2. If patient does not respond to iron or it really felt that she is not having significant menstrua l loss or she turns out to be heme positive, we can proceed with a colonoscopy. We will await surgic al input on the issue with her gallbladder. ANESTHESIA: TIVA. PROCEDURE IN DETAIL: After the patient was informed of the risks, benefits, possible complications o f endoscopy including perforation, bleeding, reaction to medication and aspiration, informed consent was obtained, the patient was brought to endoscopy suite where she was sedated in a gradual fashion. Once she was comfortable, a bite block was placed in the orifice. The endoscope was advanced throug h the esophagus, stomach, second and third portion of the duodenum and slowly removed. There was goo d visualization of mucosa. The esophagus, stomach, and duodenum were normal. There was normal appea sulaiman of the duodenal folds and second, third and fourth portions. There was no stigmata of bleeding , AV malformations, ulcers, erosions or gastritis. Retroflexed views in the stomach were normal. Th e stomach had normal distensibility. The esophagus was normal. The scope was removed. The patient tolerated the procedure well without any complications.
[2017-09-16 17:13] LABS: Folate,Hemolysate 412.7 ng/mL (Not Estab.); Hematocrit 31.3 % (34.0-46.6); RBC Folate Test Component 1319 ng/mL (>498)
== END 2017-09-14 18:46 | disposition home or self-care (01) | DRG 812 ==
LOC: ERS 12:48 → SURG A 21:04
PROVIDERS: ADMIT Family Medicine; ATTEND Family Medicine
PROC: 30233N1 Transfusion of Nonautologous Red Blood Cells into Peripheral Vein, Percutaneous Approach (ICD-10-PCS; 2017-09-12)
PROC: 0DJ08ZZ Inspection of Upper Intestinal Tract, Via Natural or Artificial Opening Endoscopic (ICD-10-PCS; principal; 2017-09-14)
DX: D50.9 Iron deficiency anemia, unspecified (principal); K76.0 Fatty (change of) liver, not elsewhere classified; K82.9 Disease of gallbladder, unspecified
CPT/HCPCS: 36415; 36430; 71275; 76705; 78227; 80053; 82550; 82607; 82728; 82747; 83021; 83540; 83550; 84134; 84703; 85014; 85018; 85025; 85027; 85060; 85610; 85730; 86705; 86706; 86850; 86900; 86901; 87340; 87389; 87521; 96360; A4216; A9537; C9113; J2916; J7050; P9016

== ENCOUNTER 2020-02-24 08:41 | Emergency (ER) | payer SELFPAY ==
[2020-02-24 09:17] LABS: Hemoglobin 10.4 g/dL (12.0-16.0); Mean Corpuscular HGB CONC 30.3 g/dL (32.0-36.0); Mean Corpuscular Hemoglobin 21.7 pg (27.0-31.0); Mean Corpuscular Volume 71.6 fL (78.0-98.0); Mean Platelet Volume 8.4 fL (7.4-10.4); Platelet Count 288 thou/uL (130-400); RBC Distribution Width 17.3 % (11.5-14.5); Red Blood Cell (RBC) Count 4.77 mill/uL (4.20-5.40); White Blood Cell (WBC) Count 5.3 thou/uL (4.8-10.8)
[2020-02-24 09:18] LABS: #Eosinphils 0.1 thou/uL (0.0-0.7); #Lymphocytes 1.7 thou/uL (1.20-3.40); #Monocytes 0.3 thou/uL (0.11-0.59); #Neutrophils 3.2 thou/uL (1.40-6.50); %Basophils 0.7 % (0.0-1.0); %Eosinophils 2.1 % (0.0-10.0); %Monocytes 6.3 % (0.0-10.0); %Neutrophils 59.9 % (42.0-75.0)
[2020-02-24 09:35] LABS: ALT (SGPT) 80 U/L (8-55); AST (SGOT) 55 U/L (5-34); Albumin 4.1 g/dL (3.5-5.0); Alkaline Phosphatase 164 U/L (40-110); Anion Gap 15 mmol/L (10-20); BUN (Urea Nitrogen) 7 mg/dL (7.0-18.7); Bilirubin, Total 0.4 mg/dL (0.2-1.2); Calc. Creatinine Clearance 0 mL/min (70-130); Calcium 9.4 mg/dL (7.8-10.44); Carbon Dioxide 25 mmol/L (22-29); Chloride 100 mmol/L (98-107); Globulin 4.1 g/dL (2.4-3.5); Glucose 474 mg/dL (70-105); Potassium 3.8 mmol/L (3.5-5.1); Protein, Total 8.2 g/dL (6.0-8.3); Sodium 136 mmol/L (136-145)
[2020-02-24 09:42] LABS: Hypochromia SLIGHT = 6-15 cells (100X) (0-5/hpf); MDiff Complete? YES; Microcytosis MODERATE=15-30 cells (100X) (0-5/hpf); Platelet Morphology Comment Appears Adequate; Polychromasia SLIGHT = 2-3 cells (100X) (0-2/hpf)
[2020-02-24 09:45] LABS: Bilirubin Negative (Negative); Blood, Urine 2+ (Negative); Clarity Clear (Clear); Glucose, Urine (Dipstick) Greater than 1000 mg/dL (Negative); Ketone, Urine 20 mg/dL (Negative); Leukocyte Negative Leu/uL (Negative); Nitrite Negative (Negative); Protein, Urine (Dipstick) Negative (Neg-Trace); RBC/HPF 0-3 HPF (0-3); Specific Gravity, Urine 1.035 (1.002-1.036); Squamous Epithelial 0-3 HPF (0-3); Urobilinogen Normal mg/dL (Less than 2)
[2020-02-24 09:49] LABS: Pregnancy Test - Urine (BHCG) Negative (Negative); Pregu Control Background? CLEAR/WHITE (CLR/WHITE); Pregu Control Bar Appear? YES (CONTROL BAR); Specific Gravity 1.035 (1.002-1.036)
[2020-02-24 09:59] LABS: Bacteria/HPF 4+ HPF (None Seen)
== END 2020-02-24 10:47 | disposition home or self-care (01) ==
LOC: ERS 08:41
DX: D64.9 Anemia, unspecified (principal); E72.51 Non-ketotic hyperglycinemia; R10.32 Left lower quadrant pain; Z87.891 Personal history of nicotine dependence
CPT/HCPCS: 36415; 80053; 81003; 81015; 81025; 83690; 85025; 99284

== ENCOUNTER 2020-04-25 20:12 | Emergency (ER) | payer SELFPAY ==
[2020-04-25 21:28] LABS: BHCG - Serum Negative (NEGATIVE); Pregs Control Background? CLEAR/WHITE (CLR/WHITE); Pregs Control Bar Appear? YES (CONTROL BAR)
[2020-04-25 22:05] LABS: #Eosinphils 0.1 thou/uL (0.0-0.7); #Lymphocytes 2.4 thou/uL (1.20-3.40); #Monocytes 0.5 thou/uL (0.11-0.59); #Neutrophils 8.6 thou/uL (1.40-6.50); %Basophils 0.4 % (0.0-1.0); %Eosinophils 1.1 % (0.0-10.0); %Lymphocytes 20.9 % (21.0-51.0); %Monocytes 4.6 % (0.0-10.0); Hemoglobin 8.3 g/dL (12.0-16.0); Hypochromia SLIGHT = 6-15 cells (100X) (0-5/hpf); MDiff Complete? YES; Mean Corpuscular HGB CONC 27.8 g/dL (32.0-36.0); Mean Corpuscular Hemoglobin 26.3 pg (27.0-31.0); Mean Corpuscular Volume 68.1 fL (78.0-98.0); Mean Platelet Volume 9.8 fL (7.4-10.4); Microcytosis MODERATE=15-30 cells (100X) (0-5/hpf); Platelet Count 540 thou/uL (130-400); Platelet Morphology Comment Appears Increased; RBC Distribution Width 20.4 % (11.5-14.5); Red Blood Cell (RBC) Count 4.51 mill/uL (4.20-5.40); White Blood Cell (WBC) Count 11.7 thou/uL (4.8-10.8)
[2020-04-25 22:20] LABS: Bilirubin Negative (Negative); Blood, Urine Negative (Negative); Clarity Clear (Clear); Glucose, Urine (Dipstick) Greater than 1000 mg/dL (Negative); Ketone, Urine Greater than 150 mg/dL (Negative); Leukocyte 75 Leu/uL (Negative); Nitrite Negative (Negative); Protein, Urine (Dipstick) Negative (Neg-Trace); Specific Gravity, Urine 1.035 (1.002-1.036); Urobilinogen Normal mg/dL (Less than 2)
[2020-04-25 22:37] LABS: Bacteria/HPF Rare-Few HPF (None Seen)
[2020-04-26 00:33] LABS: Actual Bicarbonate (HCO3v) 19 mEq/L (22-28); Analyzer IN Cardio ER; Calcium, Ionized (venous) 0.96 mmol/L (1.16-1.32); Chloride (VBG) 102 mmol/L (98-106); Hemoglobin (Hb) 9.6 g/dL (11.7-15.5); Potassium (VBG) 3.71 mmol/L (3.70-5.30); Sodium 133.4 mmol/L (133-146); pH (venous) 7.49 (7.32-7.43)
[2020-04-26 01:01] LABS: BUN (Urea Nitrogen) 5 mg/dL (7.0-18.7); Carbon Dioxide 18 mmol/L (22-29); Chloride 102 mmol/L (98-107); Sodium 137 mmol/L (136-145)
[2020-04-26 01:02] LABS: Glucose 394 mg/dL (70-105)
[2020-04-26 01:03] LABS: Albumin 3.6 g/dL (3.5-5.0); Alkaline Phosphatase 182 U/L (40-110); Bilirubin, Total 0.2 mg/dL (0.2-1.2); Calc. Creatinine Clearance 0 mL/min (70-130); Calcium 6.4 mg/dL (7.8-10.44); Globulin 3.7 g/dL (2.4-3.5)
[2020-04-26 01:04] LABS: ALT (SGPT) 26 U/L (8-55); Lipase 65 U/L (8-78)
[2020-04-26] MEDS ORDERED: Insulin Regular 300 UNITS/3 ML VIAL ONE (01:22)
== END 2020-04-26 03:14 | disposition home or self-care (01) ==
LOC: ERS 20:12
DX: E11.65 Type 2 diabetes mellitus with hyperglycemia (principal); R11.2 Nausea with vomiting, unspecified; D64.9 Anemia, unspecified; F17.210 Nicotine dependence, cigarettes, uncomplicated
CPT/HCPCS: 36415; 36416; 80053; 81003; 81015; 82010; 82805; 83690; 84703; 85025; 86850; 86900; 86901; 96374; J1815

== ENCOUNTER 2020-05-10 08:20 | Inpatient (IN) | payer SELFPAY ==
[2020-05-10] MEDS ORDERED: Ondansetron ODT 4 MG TAB ONE (08:38)
[2020-05-10] MEDS ORDERED: Morphine 4 MG/ML VIAL ONE (08:38)
[2020-05-10] MEDS ORDERED: Lorazepam 1 MG TAB ONE (08:40)
[2020-05-10] MEDS ORDERED: Iopamidol-370 76% 500 ML 1 ML ONE (08:48)
[2020-05-10] MEDS ORDERED: Insulin Regular 300 UNITS/3 ML VIAL ONE ×2 (09:33→09:35)
[2020-05-10 09:43] LABS: #Eosinphils 0.2 thou/uL (0.0-0.7); #Lymphocytes 1.4 thou/uL (1.20-3.40); #Monocytes 0.4 thou/uL (0.11-0.59); #Neutrophils 5.3 thou/uL (1.40-6.50); %Basophils 0.6 % (0.0-1.0); %Eosinophils 2.7 % (0.0-10.0); %Lymphocytes 19.7 % (21.0-51.0); %Monocytes 4.7 % (0.0-10.0); %Neutrophils 72.3 % (42.0-75.0); Hemoglobin 10.1 g/dL (12.0-16.0); Mean Corpuscular HGB CONC 31.8 g/dL (32.0-36.0); Mean Corpuscular Hemoglobin 22.3 pg (27.0-31.0); Mean Corpuscular Volume 70.3 fL (78.0-98.0); Mean Platelet Volume 7.5 fL (7.4-10.4); Platelet Count 398 thou/uL (130-400); RBC Distribution Width 18.3 % (11.5-14.5); Red Blood Cell (RBC) Count 4.52 mill/uL (4.20-5.40); White Blood Cell (WBC) Count 7.3 thou/uL (4.8-10.8)
[2020-05-10 09:51] LABS: ALT (SGPT) 15 U/L (8-55); AST (SGOT) 22 U/L (5-34); Albumin 3.6 g/dL (3.5-5.0); Alkaline Phosphatase 209 U/L (40-110); Anion Gap 21 mmol/L (10-20); BUN (Urea Nitrogen) 6 mg/dL (7.0-18.7); Bilirubin, Total 0.2 mg/dL (0.2-1.2); Calc. Creatinine Clearance 0 mL/min (70-130); Calcium 8.8 mg/dL (7.8-10.44); Carbon Dioxide 17 mmol/L (22-29); Chloride 99 mmol/L (98-107); Globulin 5.4 g/dL (2.4-3.5); Glucose 391 mg/dL (70-105); Potassium 3.3 mmol/L (3.5-5.1); Sodium 134 mmol/L (136-145)
[2020-05-10] MEDS ORDERED: Promethazine HCl 25 MG/ML VIAL ONE (10:27)
[2020-05-10 10:44] LABS: BHCG - Serum Negative (NEGATIVE); Pregs Control Background? CLEAR/WHITE (CLR/WHITE); Pregs Control Bar Appear? YES (CONTROL BAR)
[2020-05-10] MEDS ORDERED: Piperacillin/Tazobactam 3.375 GM VIAL ONE ×3 (11:55→20:39)
[2020-05-10] MEDS ORDERED: Vancomycin 1.5 GRAM/300 ML BAG 1.5 GM in Premix Bag 1 BAG IVPB SCH (12:15)
[2020-05-10] MEDS ORDERED: Ondansetron ODT 4 MG TAB PO PRN (14:04)
[2020-05-10] MEDS ORDERED: HYDROcodone/Acetaminophen 10/325 mg Tablet PO PRN (14:04)
[2020-05-10] MEDS ORDERED: HYDROcodone/Acetaminophen 7.5/325 mg Tablet PO PRN (14:04)
[2020-05-10] MEDS ORDERED: Acetaminophen 325 MG TAB PO PRN (14:04)
[2020-05-10] MEDS ORDERED: Sodium Chloride 0.9% 1,000 ML IV PRN ×4 (14:05)
[2020-05-10] MEDS ORDERED: D5 1/2 NS w/20 mEq KCL 1,000 ML IV PRN (14:05)
[2020-05-10] MEDS ORDERED: Electrolyte Replacement Protocol 1 EACH IVPB PRN (14:05)
[2020-05-10] MEDS ORDERED: Dextrose 5 %-0.45 % NaCl 1,000 ML IV PRN (14:05)
[2020-05-10] MEDS ORDERED: NS 0.9% w/ 20 MEQ KCL 1,000 ML IV PRN (14:05)
[2020-05-10] MEDS ORDERED: HUMULIN R 100 UNITS in Sodium Chloride 0.9% 100 ML IVPB SCH (14:15)
[2020-05-10 14:27] LABS: Bilirubin Negative (Negative); Blood, Urine Negative (Negative); Clarity Clear (Clear); Glucose, Urine (Dipstick) Greater than 1000 mg/dL (Negative); Ketone, Urine 150 mg/dL (Negative); Leukocyte 25 Leu/uL (Negative); Nitrite Negative (Negative); Protein, Urine (Dipstick) Negative (Neg-Trace); RBC/HPF 0-3 HPF (0-3); Specific Gravity, Urine 1.034 (1.002-1.036); Squamous Epithelial 0-3 HPF (0-3); Urobilinogen Normal mg/dL (Less than 2)
[2020-05-10 14:29] LABS: Bacteria/HPF 1+ HPF (None Seen)
[2020-05-10] MEDS ORDERED: NS 0.9% w/ 20 MEQ KCL 1,000 ML ONE ×2 (14:41→17:28)
[2020-05-10] MEDS ORDERED: INSULIN REGULAR IN 0.9 % NACL 100 UNIT/100 ML BAG ONE (14:46)
[2020-05-10 14:48] LABS: Anion Gap 16 mmol/L (10-20); BUN (Urea Nitrogen) 5 mg/dL (7.0-18.7); Calc. Creatinine Clearance 0 mL/min (70-130); Carbon Dioxide 18 mmol/L (22-29); Chloride 107 mmol/L (98-107); Glucose 354 mg/dL (70-105); Magnesium 1.7 mg/dL (1.6-2.6); Phosphorus 2.4 mg/dL (2.3-4.7); Potassium 3.2 mmol/L (3.5-5.1); Sodium 138 mmol/L (136-145)
[2020-05-10] MEDS ORDERED: Vancomycin HCl 1.25 GM in Sodium Chloride 0.9% 250 ML 250 ML IVPB SCH (15:15)
[2020-05-10] MEDS: NS 0.9% w/ 20 MEQ KCL 1,000 ML IV PRN ×2 (15:30→17:38)
[2020-05-10] MEDS ORDERED: Insulin Regular 300 UNITS/3 ML VIAL SC SCH (16:00)
[2020-05-10] MEDS ORDERED: HUMULIN R 100 UNITS in Sodium Chloride 0.9% 100 ML IVPB PRN (16:30)
[2020-05-10] MEDS ORDERED: HYDROcodone/Acetaminophen 10/325 mg Tablet ONE ×2 (17:17→19:14)
[2020-05-10] MEDS ORDERED: Insulin Glargine 20 UNITS in Pre-Filled Syringe 1 EACH SC SCH (18:30)
[2020-05-10] MEDS ORDERED: Dextrose 5% in Water 1,000 ML IV PRN (18:30)
[2020-05-10] MEDS ORDERED: Dextrose 50% Abboject 50 ML SYRINGE SLOW IVP PRN (18:30)
[2020-05-10 18:40] LABS: Anion Gap 14 mmol/L (10-20); BUN (Urea Nitrogen) 4 mg/dL (7.0-18.7); Calc. Creatinine Clearance 0 mL/min (70-130); Calcium 8.2 mg/dL (7.8-10.44); Carbon Dioxide 17 mmol/L (22-29); Chloride 113 mmol/L (98-107); Glucose 203 mg/dL (70-105); Potassium 3.6 mmol/L (3.5-5.1); Sodium 140 mmol/L (136-145)
[2020-05-10] MEDS ORDERED: Lantus 1000 UNITS/10 ML VIAL SC SCH (18:45)
[2020-05-10] MEDS: HYDROcodone/Acetaminophen 10/325 mg Tablet PO PRN (19:17)
[2020-05-10] MEDS: Piperacillin/Tazobactam 3.375 GM in Sodium Chloride 0.9% 100 ML IVPB SCH (20:46)
[2020-05-10] MEDS: D5 1/2 NS w/40 mEq KCL 1,000 ML IV SCH (21:03)
[2020-05-10 22:36] LABS: Anion Gap 13 mmol/L (10-20); BUN (Urea Nitrogen) Less than 4 mg/dL (7.0-18.7); Calc. Creatinine Clearance 0 mL/min (70-130); Carbon Dioxide 20 mmol/L (22-29); Chloride 109 mmol/L (98-107); Glucose 285 mg/dL (70-105); Potassium 3.6 mmol/L (3.5-5.1); Sodium 138 mmol/L (136-145)
[2020-05-10] MEDS: Famotidine 20 MG TAB PO SCH (23:46)
[2020-05-10] MEDS: Vancomycin HCl 750 MG in Sodium Chloride 0.9% 250 ML 250 ML IVPB SCH (23:50)
[2020-05-11 00:34] VITALS: BMI 24.2
[2020-05-11] MEDS: Piperacillin/Tazobactam 3.375 GM in Sodium Chloride 0.9% 100 ML IVPB SCH ×5 (01:51→23:37)
[2020-05-11] MEDS: HumaLOG 300 UNITS/3 ML VIAL SC PRN ×7 (04:25→23:44)
[2020-05-11] MEDS: D5 1/2 NS w/40 mEq KCL 1,000 ML IV SCH ×3 (05:10→15:02)
[2020-05-11] MEDS: Vancomycin HCl 750 MG in Sodium Chloride 0.9% 250 ML 250 ML IVPB SCH ×3 (05:59→22:02)
[2020-05-11] MEDS ORDERED: Magnesium 2 GM/50 ML 2 GM in Premix Bag 1 BAG IVPB SCH (06:15)
[2020-05-11 07:55] LABS: Anion Gap 14 mmol/L (10-20); BUN (Urea Nitrogen) 5 mg/dL (7.0-18.7); Calc. Creatinine Clearance 127 mL/min (70-130); Carbon Dioxide 20 mmol/L (22-29); Chloride 107 mmol/L (98-107); Glucose 331 mg/dL (70-105); Potassium 3.5 mmol/L (3.5-5.1); Sodium 137 mmol/L (136-145)
[2020-05-11] MEDS ORDERED: Potassium Chloride 20 MEQ TAB PO SCH (08:15)
[2020-05-11] MEDS: Famotidine 20 MG TAB PO SCH ×2 (09:00→22:00)
[2020-05-11] MEDS: Enoxaparin Sodium 40 MG/0.4 ML SYRINGE SC SCH (09:01)
[2020-05-11] MEDS: HYDROcodone/Acetaminophen 10/325 mg Tablet PO PRN ×3 (09:30→22:00)
[2020-05-11 17:04] LABS: SARS-CoV-2 PCR NAA for Saliva Not Detected (NotDetected)
[2020-05-11] MEDS: HumaLOG 300 UNITS/3 ML VIAL SC SCH (18:05)
[2020-05-11] MEDS ORDERED: FLU VACC QS2020-21(6MOS UP)/PF 60 MCG/0.5 ML SYRINGE IM ONE (21:00)
[2020-05-11] MEDS: Morphine 4 MG/ML VIAL SLOW IVP PRN (22:45)
[2020-05-12] MEDS: HYDROcodone/Acetaminophen 10/325 mg Tablet PO PRN ×3 (01:57→15:24)
[2020-05-12] MEDS: Ondansetron PF 4 MG/2 ML Vial IVP PRN ×2 (03:40→21:34)
[2020-05-12] MEDS: HumaLOG 300 UNITS/3 ML VIAL SC PRN (03:57)
[2020-05-12] MEDS: Piperacillin/Tazobactam 3.375 GM in Sodium Chloride 0.9% 100 ML IVPB SCH ×4 (05:21→22:56)
[2020-05-12] MEDS: Vancomycin HCl 750 MG in Sodium Chloride 0.9% 250 ML 250 ML IVPB SCH ×3 (06:20→21:34)
[2020-05-12 06:56] LABS: #Eosinphils 0.2 thou/uL (0.0-0.7); #Lymphocytes 1.8 thou/uL (1.20-3.40); #Monocytes 0.3 thou/uL (0.11-0.59); #Neutrophils 2.4 thou/uL (1.40-6.50); %Basophils 0.7 % (0.0-1.0); %Eosinophils 4.9 % (0.0-10.0); %Lymphocytes 38.1 % (21.0-51.0); %Monocytes 5.7 % (0.0-10.0); %Neutrophils 50.5 % (42.0-75.0); Hemoglobin 7.7 g/dL (12.0-16.0); Mean Corpuscular HGB CONC 30.4 g/dL (32.0-36.0); Mean Corpuscular Hemoglobin 21.8 pg (27.0-31.0); Mean Corpuscular Volume 71.8 fL (78.0-98.0); Mean Platelet Volume 7.1 fL (7.4-10.4); Platelet Count 335 thou/uL (130-400); RBC Distribution Width 18.1 % (11.5-14.5); Red Blood Cell (RBC) Count 3.53 mill/uL (4.20-5.40); White Blood Cell (WBC) Count 4.7 thou/uL (4.8-10.8)
[2020-05-12 07:15] LABS: Anion Gap 13 mmol/L (10-20); BUN (Urea Nitrogen) Less than 4 mg/dL (7.0-18.7); CRP (Inflammatory) 1.53 mg/dL (= or < 0.5); Calc. Creatinine Clearance 127 mL/min (70-130); Calcium 8.1 mg/dL (7.8-10.44); Carbon Dioxide 22 mmol/L (22-29); Chloride 106 mmol/L (98-107); Glucose 196 mg/dL (70-105); Magnesium 1.7 mg/dL (1.6-2.6); Potassium 3.4 mmol/L (3.5-5.1); Sodium 138 mmol/L (136-145)
[2020-05-12] MEDS: Enoxaparin Sodium 40 MG/0.4 ML SYRINGE SC SCH (08:08)
[2020-05-12] MEDS: Famotidine 20 MG TAB PO SCH ×2 (08:08→21:42)
[2020-05-12] MEDS: Lantus 1000 UNITS/10 ML VIAL SC SCH (10:01)
[2020-05-12] MEDS: HumaLOG 300 UNITS/3 ML VIAL SC SCH ×3 (10:02→18:08)
[2020-05-12 10:03] LABS: Phosphorus 3.6 mg/dL (2.3-4.7)
[2020-05-12] MEDS ORDERED: Potassium Chloride 20 MEQ TAB PO SCH (10:15)
[2020-05-12] MEDS: Ferrous Sulfate 325 MG TAB PO SCH (16:52)
[2020-05-12] MEDS: Morphine 4 MG/ML VIAL SLOW IVP PRN (21:39)
[2020-05-13] MEDS: HYDROcodone/Acetaminophen 10/325 mg Tablet PO PRN (03:52)
[2020-05-13] MEDS: Piperacillin/Tazobactam 3.375 GM in Sodium Chloride 0.9% 100 ML IVPB SCH ×2 (05:59→11:13)
[2020-05-13] MEDS: HumaLOG 300 UNITS/3 ML VIAL SC PRN (06:04)
[2020-05-13 06:39] LABS: Hemoglobin 8.3 g/dL (12.0-16.0); Mean Corpuscular HGB CONC 29.5 g/dL (32.0-36.0); Mean Corpuscular Hemoglobin 21.7 pg (27.0-31.0); Mean Corpuscular Volume 73.4 fL (78.0-98.0); Platelet Count 320 thou/uL (130-400); RBC Distribution Width 18.1 % (11.5-14.5); Red Blood Cell (RBC) Count 3.81 mill/uL (4.20-5.40); White Blood Cell (WBC) Count 5.1 thou/uL (4.8-10.8)
[2020-05-13 06:40] LABS: #Basophils 0.1 thou/uL (0.0-0.2); #Eosinphils 0.3 thou/uL (0.0-0.7); #Lymphocytes 2.2 thou/uL (1.20-3.40); #Monocytes 0.4 thou/uL (0.11-0.59); #Neutrophils 2.2 thou/uL (1.40-6.50); %Basophils 1.1 % (0.0-1.0); %Eosinophils 5.2 % (0.0-10.0); %Monocytes 6.8 % (0.0-10.0)
[2020-05-13 06:49] LABS: Anion Gap 12 mmol/L (10-20); BUN (Urea Nitrogen) Less than 4 mg/dL (7.0-18.7); Calc. Creatinine Clearance 136 mL/min (70-130); Calcium 8.2 mg/dL (7.8-10.44); Carbon Dioxide 24 mmol/L (22-29); Chloride 105 mmol/L (98-107); Glucose 219 mg/dL (70-105); Sodium 137 mmol/L (136-145)
[2020-05-13 06:50] LABS: Vancomycin, Trough 7.4 ug/mL
[2020-05-13] MEDS ORDERED: VANCOMYCIN 1.25 GM/250 ML BAG 1.25 GM in Premix Bag 1 BAG IVPB SCH (08:00)
[2020-05-13] MEDS: Ferrous Sulfate 325 MG TAB PO SCH (08:20)
[2020-05-13] MEDS: Famotidine 20 MG TAB PO SCH (08:20)
[2020-05-13] MEDS: Enoxaparin Sodium 40 MG/0.4 ML SYRINGE SC SCH (08:22)
[2020-05-13] MEDS: HumaLOG 300 UNITS/3 ML VIAL SC SCH ×2 (08:22→14:07)
[2020-05-13 08:30] VITALS: BP 91/55; TEMP 97.6
[2020-05-13 08:49] LABS: Hypochromia SLIGHT = 6-15 cells (100X) (0-5/hpf); MDiff Complete? YES; Microcytosis SLIGHT = 6-15 cells (100X) (0-5/hpf); Platelet Morphology Comment Appears Adequate; Polychromasia SLIGHT = 2-3 cells (100X) (0-2/hpf)
[2020-05-13] MEDS: Vancomycin HCl 750 MG in Sodium Chloride 0.9% 250 ML 250 ML IVPB SCH (11:09)
[2020-05-13] MEDS: Lantus 1000 UNITS/10 ML VIAL SC SCH (11:14)
== END 2020-05-13 15:24 | disposition left against medical advice (07) | DRG 638 ==
LOC: ERS 08:20 → ERHOLD 12:25 → ONC 22:52
PROVIDERS: ADMIT Internal Medicine; ATTEND Internal Medicine
DX: E10.10 Type 1 diabetes mellitus with ketoacidosis without coma (principal); L03.315 Cellulitis of perineum; E87.1 Hypo-osmolality and hyponatremia; E10.628 Type 1 diabetes mellitus with other skin complications; Z20.822 Contact with and (suspected) exposure to COVID-19; E87.6 Hypokalemia; D50.9 Iron deficiency anemia, unspecified; F32.9 Major depressive disorder, single episode, unspecified; F41.9 Anxiety disorder, unspecified; Z87.891 Personal history of nicotine dependence; Z28.21 Immunization not carried out because of patient refusal; Z79.4 Long term (current) use of insulin
CPT/HCPCS: 36415; 36416; 74177; 80048; 80053; 80202; 81003; 81015; 82010; 83605; 83735; 84100; 84703; 85025; 86140; 87040; 87635; 96365; 96367; 96372; J1650; J1815; J2270; J2405; J2543; J2550; J3370; J3475; J3480; J3490; J7050; Q0162; Q9967; U0003; U0005

== ENCOUNTER 2020-06-09 06:49 | Inpatient (IN) | payer SELFPAY ==
[2020-06-09] MEDS ORDERED: Ketorolac Tromethamine 30 MG/ML VIAL ONE (07:46)
[2020-06-09] MEDS ORDERED: Lorazepam 2 MG/ML VIAL ONE (07:46)
[2020-06-09 07:50] LABS: #Basophils 0.1 thou/uL (0.0-0.2); #Eosinphils 0.1 thou/uL (0.0-0.7); #Lymphocytes 1.6 thou/uL (1.20-3.40); #Monocytes 0.3 thou/uL (0.11-0.59); #Neutrophils 3.8 thou/uL (1.40-6.50); %Basophils 0.9 % (0.0-1.0); %Eosinophils 1.5 % (0.0-10.0); %Lymphocytes 27.5 % (21.0-51.0); %Monocytes 5.7 % (0.0-10.0); %Neutrophils 64.4 % (42.0-75.0); Hemoglobin 10.3 g/dL (12.0-16.0); Mean Corpuscular HGB CONC 31.8 g/dL (32.0-36.0); Mean Corpuscular Hemoglobin 21.6 pg (27.0-31.0); Mean Platelet Volume 9.2 fL (7.4-10.4); Platelet Count 303 thou/uL (130-400); RBC Distribution Width 16.8 % (11.5-14.5); Red Blood Cell (RBC) Count 4.76 mill/uL (4.20-5.40); White Blood Cell (WBC) Count 5.8 thou/uL (4.8-10.8)
[2020-06-09 08:02] LABS: Phosphorus 2.6 mg/dL (2.3-4.7)
[2020-06-09 08:04] LABS: ALT (SGPT) 17 U/L (8-55); AST (SGOT) 16 U/L (5-34); Albumin 4.1 g/dL (3.5-5.0); Alkaline Phosphatase 199 U/L (40-110); Anion Gap 20 mmol/L (10-20); BUN (Urea Nitrogen) 9 mg/dL (7.0-18.7); Bilirubin, Total 0.5 mg/dL (0.2-1.2); Calc. Creatinine Clearance 0 mL/min (70-130); Carbon Dioxide 19 mmol/L (22-29); Chloride 99 mmol/L (98-107); Globulin 4.4 g/dL (2.4-3.5); Glucose 415 mg/dL (70-105); Potassium 3.5 mmol/L (3.5-5.1); Protein, Total 8.5 g/dL (6.0-8.3); Sodium 134 mmol/L (136-145)
[2020-06-09 08:06] LABS: Actual Bicarbonate (HCO3v) 21 mEq/L (22-28); Analyzer IN Cardio ER; Base Excess -0.8 mEq/L (-2.0 to +3.0); Calcium, Ionized (venous) 1.15 mmol/L (1.16-1.32); Chloride (VBG) 101 mmol/L (98-106); Hemoglobin (Hb) 11.2 g/dL (11.7-15.5); Potassium (VBG) 3.68 mmol/L (3.70-5.30); Sodium 135.4 mmol/L (133-146); pH (venous) 7.51 (7.32-7.43)
[2020-06-09 08:13] LABS: BHCG - Serum Negative (NEGATIVE); Pregs Control Background? CLEAR/WHITE (CLR/WHITE); Pregs Control Bar Appear? YES (CONTROL BAR)
[2020-06-09 08:33] LABS: Bilirubin Negative (Negative); Blood, Urine Negative (Negative); Clarity Clear (Clear); Glucose, Urine (Dipstick) Greater than 1000 mg/dL (Negative); Ketone, Urine 60 mg/dL (Negative); Leukocyte Negative Leu/uL (Negative); Nitrite Negative (Negative); Protein, Urine (Dipstick) Negative (Neg-Trace); Specific Gravity, Urine 1.036 (1.002-1.036); Urobilinogen Normal mg/dL (Less than 2); pH, Urine 6.5 (5.0-9.0)
[2020-06-09] MEDS ORDERED: Cefepime 2 GM VIAL ONE (09:01)
[2020-06-09] MEDS ORDERED: Insulin Regular 300 UNITS/3 ML VIAL ONE (09:01)
[2020-06-09] MEDS ORDERED: Ondansetron PF 4 MG/2 ML Vial IVP PRN (10:27)
[2020-06-09] MEDS ORDERED: Acetaminophen 650 MG Suppository PR PRN (10:27)
[2020-06-09] MEDS ORDERED: Ondansetron ODT 4 MG TAB PO PRN (10:27)
[2020-06-09] MEDS ORDERED: Acetaminophen 325 MG TAB PO PRN (10:27)
[2020-06-09] MEDS ORDERED: traMADol HCl 50 MG TAB PO PRN (10:44)
[2020-06-09] MEDS ORDERED: Vancomycin HCl 1.5 GM in Sodium Chloride 0.9% 250 ML 300 ML IVPB SCH (10:45)
[2020-06-09] MEDS ORDERED: Vancomycin 1 GM in Premix Bag 1 BAG IVPB SCH (10:45)
[2020-06-09] MEDS ORDERED: Dextrose 50% Abboject 50 ML SYRINGE SLOW IVP PRN (10:56)
[2020-06-09] MEDS ORDERED: HumaLOG 300 UNITS/3 ML VIAL SC PRN (10:56)
[2020-06-09] MEDS ORDERED: Dextrose 5% in Water 1,000 ML IV PRN (10:56)
[2020-06-09 11:08] LABS: HIV (1/2) Antibody/Antigen Non-Reactive (NonReactive); HIV 1/2 INDEX 0.21 S/CO (<1.00)
[2020-06-09] MEDS ORDERED: Iopamidol-370 76% 500 ML 1 ML ONE (12:01)
[2020-06-09 12:06] VITALS: BMI 23.8
[2020-06-09] MEDS: HumaLOG 300 UNITS/3 ML VIAL SC PRN (12:42)
[2020-06-09] MEDS ORDERED: VANCOMYCIN 1.25 GM/250 ML BAG 1 GM in Premix Bag 1 BAG IVPB SCH (12:45)
[2020-06-09] MEDS ORDERED: Piperacillin/Tazobactam 2.25 GM in Sodium Chloride 0.9% 100 ML IVPB SCH (14:00)
[2020-06-09] MEDS: Acetaminophen 325 MG TAB PO SCH ×3 (14:58→21:32)
[2020-06-09] MEDS: Morphine 2 MG/ML VIAL SLOW IVP PRN ×2 (15:00→21:06)
[2020-06-09] MEDS: Piperacillin/Tazobactam 3.375 GM in Sodium Chloride 0.9% 100 ML IVPB SCH ×2 (15:00→20:52)
[2020-06-09] MEDS: Ibuprofen 600 MG TAB PO SCH ×2 (16:16→21:31)
[2020-06-09] MEDS: Lantus 1000 UNITS/10 ML VIAL SC SCH (20:59)
[2020-06-10] MEDS: Vancomycin 1 GM in Premix Bag 1 BAG IVPB SCH ×2 (00:26→12:33)
[2020-06-10] MEDS: Piperacillin/Tazobactam 3.375 GM in Sodium Chloride 0.9% 100 ML IVPB SCH ×4 (02:02→20:47)
[2020-06-10] MEDS: Acetaminophen 325 MG TAB PO SCH ×6 (02:08→22:35)
[2020-06-10] MEDS: Morphine 2 MG/ML VIAL SLOW IVP PRN ×4 (02:09→16:50)
[2020-06-10 02:16] LABS: SARS-CoV-2 PCR NAA for Saliva Not Detected (NotDetected)
[2020-06-10] MEDS: HumaLOG 300 UNITS/3 ML VIAL SC PRN ×3 (05:52→18:16)
[2020-06-10] MEDS: Ibuprofen 600 MG TAB PO SCH ×4 (05:55→21:23)
[2020-06-10 06:55] LABS: #Eosinphils 0.2 thou/uL (0.0-0.7); #Lymphocytes 1.8 thou/uL (1.20-3.40); #Monocytes 0.4 thou/uL (0.11-0.59); #Neutrophils 2.8 thou/uL (1.40-6.50); %Basophils 0.7 % (0.0-1.0); %Eosinophils 3.9 % (0.0-10.0); %Lymphocytes 34.3 % (21.0-51.0); %Monocytes 7.8 % (0.0-10.0); %Neutrophils 53.3 % (42.0-75.0); Hemoglobin 8.6 g/dL (12.0-16.0); Mean Corpuscular HGB CONC 30.1 g/dL (32.0-36.0); Mean Corpuscular Hemoglobin 21.4 pg (27.0-31.0); Mean Corpuscular Volume 71.1 fL (78.0-98.0); Mean Platelet Volume 9.3 fL (7.4-10.4); Platelet Count 253 thou/uL (130-400); RBC Distribution Width 16.9 % (11.5-14.5); Red Blood Cell (RBC) Count 4.04 mill/uL (4.20-5.40); White Blood Cell (WBC) Count 5.2 thou/uL (4.8-10.8)
[2020-06-10 08:14] LABS: Anion Gap 12 mmol/L (10-20); BUN (Urea Nitrogen) 8 mg/dL (7.0-18.7); Calc. Creatinine Clearance 114 mL/min (70-130); Calcium 8.2 mg/dL (7.8-10.44); Carbon Dioxide 23 mmol/L (22-29); Chloride 105 mmol/L (98-107); Glucose 303 mg/dL (70-105); Potassium 3.5 mmol/L (3.5-5.1); Sodium 136 mmol/L (136-145)
[2020-06-10] MEDS ORDERED: Nystatin Powder 15 GM BOT TOP PRN (10:03)
[2020-06-10] MEDS ORDERED: HumaLOG 300 UNITS/3 ML VIAL SC PRN (15:20)
[2020-06-10] MEDS: Acyclovir 400 mg Tablet PO SCH (20:47)
[2020-06-10] MEDS: Lantus 1000 UNITS/10 ML VIAL SC SCH (21:20)
[2020-06-11 00:07] LABS: Chlamydia trachomatis by NAA Negative (Negative)
[2020-06-11 01:20] LABS: Vancomycin, Trough 4.1 ug/mL
[2020-06-11] MEDS: Piperacillin/Tazobactam 3.375 GM in Sodium Chloride 0.9% 100 ML IVPB SCH ×2 (01:32→08:55)
[2020-06-11] MEDS: Vancomycin 1 GM in Premix Bag 1 BAG IVPB SCH ×3 (01:33→11:36)
[2020-06-11] MEDS: Morphine 2 MG/ML VIAL SLOW IVP PRN ×2 (01:36→06:16)
[2020-06-11] MEDS: Acetaminophen 325 MG TAB PO SCH ×3 (03:16→11:36)
[2020-06-11] MEDS: Ibuprofen 600 MG TAB PO SCH ×2 (05:31→11:36)
[2020-06-11] MEDS: HumaLOG 300 UNITS/3 ML VIAL SC PRN (06:15)
[2020-06-11] MEDS: Acyclovir 400 mg Tablet PO SCH (08:56)
[2020-06-11] MEDS ORDERED: Lantus 1000 UNITS/10 ML VIAL SC SCH (09:00)
[2020-06-11 12:45] VITALS: BP 112/74; TEMP 98.4
== END 2020-06-11 11:30 | disposition home or self-care (01) | DRG 872 ==
LOC: ERS 06:49 → T4-A 10:12
PROVIDERS: ADMIT Internal Medicine; ATTEND Internal Medicine
DX: A40.1 Sepsis due to streptococcus, group B (principal); L03.315 Cellulitis of perineum; A60.04 Herpesviral vulvovaginitis; Z20.822 Contact with and (suspected) exposure to COVID-19; F41.9 Anxiety disorder, unspecified; F32.9 Major depressive disorder, single episode, unspecified; E10.65 Type 1 diabetes mellitus with hyperglycemia; Z79.4 Long term (current) use of insulin
CPT/HCPCS: 36415; 36416; 74177; 80048; 80053; 80202; 81003; 82010; 82805; 83605; 83735; 84100; 84703; 85025; 87040; 87070; 87077; 87086; 87205; 87389; 87491; 87529; 87591; 87635; 94760; 96365; 96375; J0692; J1815; J1885; J2060; J2270; J2543; J3370; J3490; J7050; Q9967; U0003; U0005

== ENCOUNTER 2020-08-23 05:34 | Inpatient (IN) | payer SELFPAY ==
[2020-08-23] MEDS ORDERED: Haloperidol Lactate 5 MG/ML VIAL ONE (05:52)
[2020-08-23 06:08] LABS: BHCG - Serum Negative (NEGATIVE); Pregs Control Background? CLEAR/WHITE (CLR/WHITE); Pregs Control Bar Appear? YES (CONTROL BAR)
[2020-08-23 06:09] LABS: Analyzer IN Cardio ER; Base Excess -24.5 mEq/L (-2.0 to +3.0); Chloride (VBG) 109 mmol/L (98-106); Hemoglobin (Hb) 11.3 g/dL (11.7-15.5); Potassium (VBG) 4.86 mmol/L (3.70-5.30); Sodium 136.8 mmol/L (133-146)
[2020-08-23 06:26] LABS: ALT (SGPT) 16 U/L (8-55); AST (SGOT) 28 U/L (5-34); Alkaline Phosphatase 132 U/L (40-110); BUN (Urea Nitrogen) 9 mg/dL (7.0-18.7); Bilirubin, Total 0.2 mg/dL (0.2-1.2); Calc. Creatinine Clearance 0 mL/min (70-130); Calcium 8.2 mg/dL (7.8-10.44); Chloride 103 mmol/L (98-107); Globulin 5.2 g/dL (2.4-3.5); Glucose 391 mg/dL (70-105); Lipase 32 U/L (8-78); Potassium 4.8 mmol/L (3.5-5.1); Protein, Total 9.2 g/dL (6.0-8.3); Sodium 130 mmol/L (136-145)
[2020-08-23 06:30] LABS: Carbon Dioxide Less than 8 mmol/L (22-29)
[2020-08-23 06:43] LABS: #Eosinphils 0.1 thou/uL (0.0-0.7); #Lymphocytes 1.3 thou/uL (1.20-3.40); #Monocytes 0.4 thou/uL (0.11-0.59); #Neutrophils 10.2 thou/uL (1.40-6.50); %Basophils 0.3 % (0.0-1.0); %Eosinophils 0.5 % (0.0-10.0); %Monocytes 3.5 % (0.0-10.0); %Neutrophils 84.7 % (42.0-75.0); Hemoglobin 10.9 g/dL (12.0-16.0); MDiff Complete? YES; Mean Corpuscular HGB CONC 29.9 g/dL (32.0-36.0); Mean Corpuscular Hemoglobin 21.3 pg (27.0-31.0); Mean Corpuscular Volume 71.2 fL (78.0-98.0); Mean Platelet Volume 9.2 fL (7.4-10.4); Microcytosis SLIGHT = 6-15 cells (100X) (0-5/hpf); Platelet Count 424 thou/uL (130-400); RBC Distribution Width 18.3 % (11.5-14.5); Red Blood Cell (RBC) Count 5.12 mill/uL (4.20-5.40)
[2020-08-23] MEDS ORDERED: INSULIN REGULAR IN 0.9 % NACL 100 UNIT/100 ML BAG ONE (06:45)
[2020-08-23] MEDS ORDERED: NS 0.9% w/ 20 MEQ KCL 1,000 ML ONE ×2 (06:51→09:36)
[2020-08-23 07:05] LABS: Bacteria/HPF 1+ HPF (None Seen); Bilirubin Negative (Negative); Blood, Urine 3+ (Negative); Clarity Clear (Clear); Glucose, Urine (Dipstick) Greater than 1000 mg/dL (Negative); Ketone, Urine Greater than 150 mg/dL (Negative); Leukocyte 25 Leu/uL (Negative); Nitrite Negative (Negative); Protein, Urine (Dipstick) 50 mg/dL (Neg-Trace); RBC/HPF 0-3 HPF (0-3); Specific Gravity, Urine 1.022 (1.002-1.036); Urobilinogen Normal mg/dL (Less than 2); pH, Urine 5.5 (5.0-9.0)
[2020-08-23 07:06] LABS: Amphetamine Not Detected (NotDetected); Barbiturates Screen Not Detected (NotDetected); Benzodiazepine Screen Not Detected (NotDetected); Cocaine Metabolite Screen Not Detected (NotDetected); Medtox Control Line Valid? VALID (VALID); Medtox Reader # READER 1; Methadone Not Detected (NotDetected); Methamphetamine Not Detected (NotDetected); Opiate Screen Not Detected (NotDetected); Oxycodone Screen Not Detected (NotDetected); Phencyclidine (PCP) Not Detected (NotDetected); THC/Cannabinoid Screen Not Detected (NotDetected); Tricyclic Screen Not Detected (NotDetected)
[2020-08-23 07:35] LABS: Actual Bicarbonate (HCO3v) 6 mEq/L (22-28); pH (venous) 6.99 (7.32-7.43)
[2020-08-23] MEDS ORDERED: Cepastat Lozenges 1 LOZ PO PRN (07:48)
[2020-08-23] MEDS ORDERED: Ondansetron PF 4 MG/2 ML Vial IVP PRN (07:48)
[2020-08-23] MEDS ORDERED: GUAIFENESIN SF SOLN 200 MG/10 ML UDCUP PO PRN (07:48)
[2020-08-23] MEDS ORDERED: Zolpidem Tartrate 5 MG TAB PO PRN ×2 (07:48→07:51)
[2020-08-23] MEDS ORDERED: Electrolyte Replacement Protocol 1 EACH IVPB SCH (07:48)
[2020-08-23] MEDS ORDERED: Ondansetron ODT 4 MG TAB SL PRN (07:48)
[2020-08-23] MEDS ORDERED: Dextrose 5 %-0.45 % NaCl 1,000 ML IV PRN (07:48)
[2020-08-23] MEDS ORDERED: Bisacodyl 5 MG TAB PO PRN (07:48)
[2020-08-23] MEDS ORDERED: Sodium Chloride 0.9% 1,000 ML IV PRN ×4 (07:48)
[2020-08-23] MEDS ORDERED: Sodium Chloride 0.65% Nasal 44 ML BOT EA NARE PRN (07:48)
[2020-08-23] MEDS ORDERED: Senokot S 8.6-50 MG TAB PO PRN ×2 (07:48→07:51)
[2020-08-23] MEDS ORDERED: Loratadine 10 MG TAB PO PRN (07:48)
[2020-08-23] MEDS ORDERED: NS 0.9% w/ 20 MEQ KCL 1,000 ML IV PRN ×2 (07:48)
[2020-08-23] MEDS ORDERED: Metoclopramide HCl 10 MG/2 ML VIAL IVP PRN (07:48)
[2020-08-23] MEDS ORDERED: Calcium Carbonate 500 MG ChewTAB PO PRN (07:48)
[2020-08-23] MEDS ORDERED: hydrALAZINE 20 MG/ML VIAL SLOW IVP PRN (07:48)
[2020-08-23] MEDS ORDERED: Loperamide HCl 2 MG CAP PO PRN ×2 (07:48→07:51)
[2020-08-23] MEDS ORDERED: Acetaminophen 325 MG TAB PO PRN (07:51)
[2020-08-23] MEDS ORDERED: HYDROcodone/Acetaminophen 5/325 mg Tablet PO PRN (07:51)
[2020-08-23] MEDS ORDERED: Bisacodyl 10 MG SUPP PR PRN (07:51)
[2020-08-23] MEDS ORDERED: HUMULIN R 100 UNITS in Sodium Chloride 0.9% 100 ML IVPB SCH (08:00)
[2020-08-23 08:26] LABS: SARS-CoV-2 NAA Rapid Test Not Detected (NotDetected)
[2020-08-23 08:26] LABS: Hemoglobin A1c Greater than 14.0 % (4.0-6.0)
[2020-08-23 08:33] LABS: Phosphorus 4.1 mg/dL (2.3-4.7)
[2020-08-23] MEDS ORDERED: Sodium Chloride 0.9% (PF) 10 ML VIAL FS PRN (08:45)
[2020-08-23] MEDS ORDERED: Enoxaparin Sodium 40 MG/0.4 ML SYRINGE ONE (09:35)
[2020-08-23] MEDS ORDERED: Pantoprazole 40 MG VIAL ONE (09:35)
[2020-08-23] MEDS ORDERED: cefTRIAXone\\ROCEPHIN 1 GM VIAL ONE (09:35)
[2020-08-23 09:46] LABS: BUN (Urea Nitrogen) 7 mg/dL (7.0-18.7); Calc. Creatinine Clearance 0 mL/min (70-130); Calcium 7.5 mg/dL (7.8-10.44); Chloride 110 mmol/L (98-107); Glucose 307 mg/dL (70-105); Potassium 4.5 mmol/L (3.5-5.1); Sodium 133 mmol/L (136-145)
[2020-08-23] MEDS: Enoxaparin Sodium 40 MG/0.4 ML SYRINGE SC SCH (09:46)
[2020-08-23] MEDS: Pantoprazole 40 MG VIAL IVP SCH (09:46)
[2020-08-23] MEDS: cefTRIAXone\\ROCEPHIN 1 GM in Sodium Chloride 0.9% 100 ML IVPB SCH (09:46)
[2020-08-23 09:51] LABS: Carbon Dioxide Less than 8 mmol/L (22-29)
[2020-08-23] MEDS ORDERED: Dextrose 50% Abboject 50 ML SYRINGE ONE (11:24)
[2020-08-23] MEDS ORDERED: Sodium Bicarb 50 MEQ/50 ML VIAL IVP SCH (11:30)
[2020-08-23] MEDS ORDERED: D5 1/2 NS w/20 mEq KCL 0 ML ONE (11:44)
[2020-08-23] MEDS: D5 1/2 NS w/20 mEq KCL 1,000 ML IV PRN ×2 (11:56→20:35)
[2020-08-23 12:53] LABS: BUN (Urea Nitrogen) 6 mg/dL (7.0-18.7); Calc. Creatinine Clearance 0 mL/min (70-130); Calcium 7.6 mg/dL (7.8-10.44); Chloride 115 mmol/L (98-107); Glucose 202 mg/dL (70-105); Potassium 4.4 mmol/L (3.5-5.1); Sodium 135 mmol/L (136-145)
[2020-08-23 13:08] LABS: Carbon Dioxide Less than 8 mmol/L (22-29)
[2020-08-23] MEDS ORDERED: Sodium Bicarb 50 MEQ/50 ML Abboject 8.4% SYRINGE ONE (13:19)
[2020-08-23] MEDS ORDERED: Sodium Bicarbonate 150 MEQ in Dextrose 5% in Water 1,000 ML IV SCH (13:45)
[2020-08-23 16:40] VITALS: BMI 22.6
[2020-08-23 17:08] LABS: Lactic Acid 1.5 mmol/L (0.5-2.2)
[2020-08-23 17:13] LABS: BUN (Urea Nitrogen) 4 mg/dL (7.0-18.7); Calc. Creatinine Clearance 81 mL/min (70-130); Calcium 7.9 mg/dL (7.8-10.44); Chloride 114 mmol/L (98-107); Glucose 120 mg/dL (70-105); Potassium 3.4 mmol/L (3.5-5.1); Sodium 137 mmol/L (136-145)
[2020-08-23 17:18] LABS: Carbon Dioxide Less than 8 mmol/L (22-29)
[2020-08-23] MEDS: Sodium Bicarbonate 150 MEQ in Dextrose 5% in Water 1,000 ML IV SCH ×2 (17:49→22:41)
[2020-08-23 20:29] LABS: Anion Gap 19 mmol/L (10-20); BUN (Urea Nitrogen) 5 mg/dL (7.0-18.7); Calc. Creatinine Clearance 96 mL/min (70-130); Calcium 7.5 mg/dL (7.8-10.44); Carbon Dioxide 10 mmol/L (22-29); Chloride 108 mmol/L (98-107); Glucose 147 mg/dL (70-105); Sodium 134 mmol/L (136-145)
[2020-08-24] MEDS: D5 1/2 NS w/20 mEq KCL 1,000 ML IV PRN ×2 (01:13→04:39)
[2020-08-24 01:53] LABS: Anion Gap 17 mmol/L (10-20); BUN (Urea Nitrogen) 5 mg/dL (7.0-18.7); Calc. Creatinine Clearance 100 mL/min (70-130); Calcium 7.3 mg/dL (7.8-10.44); Carbon Dioxide 11 mmol/L (22-29); Chloride 114 mmol/L (98-107); Glucose 202 mg/dL (70-105); Sodium 139 mmol/L (136-145)
[2020-08-24 01:59] LABS: Potassium 2.8 mmol/L (3.5-5.1)
[2020-08-24] MEDS: Potassium Chloride 20 MEQ TAB PO SCH ×5 (03:42→17:26)
[2020-08-24 03:45] LABS: #Basophils 0.1 thou/uL (0.0-0.2); #Eosinphils 0.1 thou/uL (0.0-0.7); #Lymphocytes 1.1 thou/uL (1.20-3.40); #Monocytes 0.4 thou/uL (0.11-0.59); %Basophils 1.4 % (0.0-1.0); %Eosinophils 2.7 % (0.0-10.0); %Lymphocytes 30.1 % (21.0-51.0); %Monocytes 11.3 % (0.0-10.0); %Neutrophils 54.5 % (42.0-75.0); Hemoglobin 8.3 g/dL (12.0-16.0); Mean Corpuscular HGB CONC 30.4 g/dL (32.0-36.0); Mean Corpuscular Hemoglobin 21.8 pg (27.0-31.0); Mean Corpuscular Volume 71.6 fL (78.0-98.0); Mean Platelet Volume 8.5 fL (7.4-10.4); Platelet Count 298 thou/uL (130-400); RBC Distribution Width 18.1 % (11.5-14.5); Red Blood Cell (RBC) Count 3.81 mill/uL (4.20-5.40); White Blood Cell (WBC) Count 3.6 thou/uL (4.8-10.8)
[2020-08-24 04:05] LABS: Magnesium 1.5 mg/dL (1.6-2.6); Phosphorus 1.2 mg/dL (2.3-4.7)
[2020-08-24 04:34] LABS: ALT (SGPT) 13 U/L (8-55); AST (SGOT) 19 U/L (5-34); Albumin 2.5 g/dL (3.5-5.0); Alkaline Phosphatase 75 U/L (40-110); Anion Gap 17 mmol/L (10-20); BUN (Urea Nitrogen) 5 mg/dL (7.0-18.7); Bilirubin, Total Less than 0.2 mg/dL (0.2-1.2); Calc. Creatinine Clearance 106 mL/min (70-130); Calcium 7.2 mg/dL (7.8-10.44); Carbon Dioxide 10 mmol/L (22-29); Chloride 114 mmol/L (98-107); Globulin 2.9 g/dL (2.4-3.5); Glucose 188 mg/dL (70-105); Potassium 2.8 mmol/L (3.5-5.1); Protein, Total 5.4 g/dL (6.0-8.3); Sodium 138 mmol/L (136-145)
[2020-08-24] MEDS ORDERED: Potassium Phosphate 22 MMOL in Sodium Chloride 0.9% 250 ML 250 ML IVPB SCH (05:15)
[2020-08-24] MEDS ORDERED: Potassium Chloride 40 MEQ, Magnesium Sulfate 2 GM in Sodium Chloride 0.9% 250 ML 250 ML IVPB SCH (05:15)
[2020-08-24] MEDS: Enoxaparin Sodium 40 MG/0.4 ML SYRINGE SC SCH (08:15)
[2020-08-24] MEDS: cefTRIAXone\\ROCEPHIN 1 GM in Sodium Chloride 0.9% 100 ML IVPB SCH (08:15)
[2020-08-24] MEDS: Pantoprazole 40 MG VIAL IVP SCH (08:15)
[2020-08-24] MEDS: Sodium Bicarbonate Tab 325 MG TAB PO SCH ×2 (08:34→20:50)
[2020-08-24 08:35] LABS: Anion Gap 16 mmol/L (10-20); BUN (Urea Nitrogen) Less than 4 mg/dL (7.0-18.7); Calc. Creatinine Clearance 118 mL/min (70-130); Calcium 7.1 mg/dL (7.8-10.44); Carbon Dioxide 11 mmol/L (22-29); Chloride 113 mmol/L (98-107); Glucose 145 mg/dL (70-105); Sodium 136 mmol/L (136-145)
[2020-08-24 14:20] LABS: Anion Gap 15 mmol/L (10-20); BUN (Urea Nitrogen) Less than 4 mg/dL (7.0-18.7); Calc. Creatinine Clearance 109 mL/min (70-130); Calcium 7.6 mg/dL (7.8-10.44); Carbon Dioxide 12 mmol/L (22-29); Chloride 110 mmol/L (98-107); Glucose 308 mg/dL (70-105); Potassium 4.1 mmol/L (3.5-5.1); Sodium 133 mmol/L (136-145)
[2020-08-24] MEDS ORDERED: Dextrose 5% in Water 1,000 ML IV PRN (16:38)
[2020-08-24] MEDS ORDERED: Insulin Regular 300 UNITS/3 ML VIAL SC PRN ×2 (16:38)
[2020-08-24] MEDS ORDERED: Dextrose 50% Abboject 50 ML SYRINGE SLOW IVP PRN (16:38)
[2020-08-24] MEDS ORDERED: Lantus 1000 UNITS/10 ML VIAL SC SCH (16:45)
[2020-08-24] MEDS: 1/2 NS w/KCL 20 mEq 1,000 ML IV SCH (17:26)
[2020-08-25] MEDS: 1/2 NS w/KCL 20 mEq 1,000 ML IV SCH ×2 (01:10→10:23)
[2020-08-25 03:53] LABS: #Eosinphils 0.2 thou/uL (0.0-0.7); #Lymphocytes 1.5 thou/uL (1.20-3.40); #Monocytes 0.4 thou/uL (0.11-0.59); #Neutrophils 1.3 thou/uL (1.40-6.50); %Basophils 0.6 % (0.0-1.0); %Eosinophils 5.4 % (0.0-10.0); %Lymphocytes 44.4 % (21.0-51.0); %Monocytes 11.6 % (0.0-10.0); %Neutrophils 37.9 % (42.0-75.0); Hemoglobin 9.6 g/dL (12.0-16.0); Mean Corpuscular HGB CONC 30.9 g/dL (32.0-36.0); Mean Corpuscular Hemoglobin 22.1 pg (27.0-31.0); Mean Corpuscular Volume 71.4 fL (78.0-98.0); Mean Platelet Volume 8.9 fL (7.4-10.4); Platelet Count 355 thou/uL (130-400); RBC Distribution Width 18.9 % (11.5-14.5); Red Blood Cell (RBC) Count 4.34 mill/uL (4.20-5.40); White Blood Cell (WBC) Count 3.3 thou/uL (4.8-10.8)
[2020-08-25 04:11] LABS: Anion Gap 18 mmol/L (10-20); BUN (Urea Nitrogen) Less than 4 mg/dL (7.0-18.7); Calc. Creatinine Clearance 121 mL/min (70-130); Calcium 8.6 mg/dL (7.8-10.44); Carbon Dioxide 16 mmol/L (22-29); Chloride 102 mmol/L (98-107); Glucose 338 mg/dL (70-105); Magnesium 1.8 mg/dL (1.6-2.6); Phosphorus 2.2 mg/dL (2.3-4.7); Potassium 3.9 mmol/L (3.5-5.1); Sodium 132 mmol/L (136-145)
[2020-08-25] MEDS ORDERED: Magnesium 2 GM/50 ML 2 GM in Premix Bag 1 BAG IVPB SCH (04:30)
[2020-08-25] MEDS: Insulin Regular 300 UNITS/3 ML VIAL SC PRN ×2 (04:50→11:25)
[2020-08-25] MEDS: Enoxaparin Sodium 40 MG/0.4 ML SYRINGE SC SCH (08:24)
[2020-08-25] MEDS: cefTRIAXone\\ROCEPHIN 1 GM in Sodium Chloride 0.9% 100 ML IVPB SCH (08:24)
[2020-08-25] MEDS: Potassium Chloride 20 MEQ TAB PO SCH (08:24)
[2020-08-25] MEDS ORDERED: Lantus 1000 UNITS/10 ML VIAL SC SCH ×2 (09:00→10:43)
[2020-08-25] MEDS: Sodium Bicarbonate Tab 325 MG TAB PO SCH (10:23)
[2020-08-25] MEDS ORDERED: 1/2 NS w/KCL 20 mEq 1,000 ML IV SCH (10:44)
[2020-08-25] MEDS ORDERED: K-Phos Neutral 250 MG TAB PO SCH (12:00)
[2020-08-25 13:25] VITALS: TEMP 97.9
[2020-08-26] MEDS ORDERED: Lantus 1000 UNITS/10 ML VIAL SC SCH (09:00)
== END 2020-08-25 15:38 | disposition home or self-care (01) | DRG 871 ==
LOC: ERS 05:34 → ERHOLD 06:47 → IMCU/EMU 16:30
PROVIDERS: ADMIT Student in an Organized Health Care Education/Training Program; ATTEND Internal Medicine
DX: A40.1 Sepsis due to streptococcus, group B (principal); E10.10 Type 1 diabetes mellitus with ketoacidosis without coma; N17.9 Acute kidney failure, unspecified; N39.0 Urinary tract infection, site not specified; E87.1 Hypo-osmolality and hyponatremia; F41.9 Anxiety disorder, unspecified; D50.9 Iron deficiency anemia, unspecified; E87.6 Hypokalemia; E83.42 Hypomagnesemia; E83.39 Other disorders of phosphorus metabolism; E86.0 Dehydration; D53.9 Nutritional anemia, unspecified; Z20.822 Contact with and (suspected) exposure to COVID-19; F32.9 Major depressive disorder, single episode, unspecified; F14.11 Cocaine abuse, in remission; Z79.4 Long term (current) use of insulin; Z87.891 Personal history of nicotine dependence; Z91.14 Patient's other noncompliance with medication regimen
CPT/HCPCS: 36415; 36416; 71045; 80048; 80053; 80306; 81003; 81015; 82010; 82728; 82805; 83036; 83605; 83690; 83735; 83930; 84100; 84703; 85025; 87077; 87086; 93005; C9113; J0696; J1630; J1650; J1815; J3475; J3480; J3490; J7050; J7070; U0002; U0005

== ENCOUNTER 2020-10-07 08:07 | Emergency (ER) | payer SELFPAY ==
[2020-10-07] MEDS ORDERED: Lidocaine 1% w/Epinephrine 1:100K 20 ML VIAL ONE (09:25)
[2020-10-07] MEDS ORDERED: Diazepam 10 MG/2 ML SYRINGE ONE (09:59)
== END 2020-10-07 11:50 | disposition home or self-care (01) ==
LOC: ERS 08:07
DX: N75.1 Abscess of Bartholin's gland (principal); D64.9 Anemia, unspecified; E10.9 Type 1 diabetes mellitus without complications; Z87.891 Personal history of nicotine dependence
CPT/HCPCS: 56420; 96372; J3360

== ENCOUNTER 2021-10-20 13:02 | Inpatient (IN) | payer SELFPAY ==
[2021-10-20] MEDS ORDERED: Metoclopramide HCl 10 MG/2 ML VIAL ONE (13:30)
[2021-10-20 14:13] LABS: Base Excess -29.9 mEq/L (-2.0 to +3.0); Calcium, Ionized (venous) 0.96 mmol/L (1.16-1.32); Chloride (VBG) 118 mmol/L (98-106); Hemoglobin (Hb) 12.1 g/dL (11.7-15.5); Sodium 139.4 mmol/L (133-146)
[2021-10-20 14:17] LABS: Actual Bicarbonate (HCO3v) 3 mEq/L (22-28); pH (venous) 6.84 (7.32-7.43)
[2021-10-20 14:22] LABS: Hemoglobin 11.6 g/dL (12.0-16.0); Mean Corpuscular HGB CONC 33.2 g/dL (32.0-36.0); Mean Corpuscular Hemoglobin 26.4 pg (27.0-31.0); Mean Corpuscular Volume 79.4 fL (78.0-98.0); Mean Platelet Volume 7.8 fL (7.4-10.4); Platelet Count 436 thou/uL (130-400); RBC Distribution Width 17.5 % (11.5-14.5); Red Blood Cell (RBC) Count 4.39 mill/uL (4.20-5.40); White Blood Cell (WBC) Count 20.7 thou/uL (4.8-10.8)
[2021-10-20] MEDS ORDERED: INSULIN REGULAR IN 0.9 % NACL 100 UNIT/100 ML BAG ONE (14:25)
[2021-10-20 14:29] LABS: BHCG - Serum Negative (NEGATIVE); Pregs Control Background? CLEAR/WHITE (CLR/WHITE); Pregs Control Bar Appear? YES (CONTROL BAR)
[2021-10-20 14:29] LABS: Amphetamine Not Detected (NotDetected); Barbiturates Screen Not Detected (NotDetected); Benzodiazepine Screen Not Detected (NotDetected); Cocaine Metabolite Screen Not Detected (NotDetected); Methadone Not Detected (NotDetected); Methamphetamine Not Detected (NotDetected); Opiate Screen Not Detected (NotDetected); Oxycodone Screen Not Detected (NotDetected); Phencyclidine (PCP) Not Detected (NotDetected); THC/Cannabinoid Screen Not Detected (NotDetected); Tricyclic Screen Not Detected (NotDetected)
[2021-10-20 14:32] LABS: Bilirubin Negative (Negative); Blood, Urine Negative (Negative); Clarity Clear (Clear); Glucose, Urine (Dipstick) Greater than 1000 mg/dL (Negative); Ketone, Urine Greater than 150 mg/dL (Negative); Leukocyte 75 Leu/uL (Negative); Nitrite Negative (Negative); Protein, Urine (Dipstick) 100 mg/dL (Neg-Trace); Specific Gravity, Urine 1.026 (1.002-1.036); Urobilinogen Normal mg/dL (Less than 2); pH, Urine 5.5 (5.0-9.0)
[2021-10-20 14:34] LABS: Bacteria/HPF Rare-Few HPF (None Seen)
[2021-10-20 14:42] LABS: Acetaminophen Less than 10.0 mcg/mL (10.0-30.0); Alcohol Less than 10 mg/dL (Less than 10); Magnesium 1.7 mg/dL (1.6-2.6); Salicylate Less than 8.0 mg/dL (15.0-30.0)
[2021-10-20 14:43] LABS: ALT (SGPT) 11 U/L (8-55); AST (SGOT) 15 U/L (5-34); Alkaline Phosphatase 135 U/L (40-110); BUN (Urea Nitrogen) 9 mg/dL (7.0-18.7); Bilirubin, Total Less than 0.2 mg/dL (0.2-1.2); CK (CPK) 15 U/L (29-168); Calc. Creatinine Clearance 0 mL/min (70-130); Calcium 6.7 mg/dL (7.8-10.44); Chloride 117 mmol/L (98-107); Estimated GFR 117; Glucose 333 mg/dL (70-105); Potassium 4.1 mmol/L (3.5-5.1); Sodium 137 mmol/L (136-145)
[2021-10-20 14:44] LABS: Anisocytosis SLIGHT = 6-15 cells (100X) (0-5/hpf); Band 26 % (5-11); Hypochromia SLIGHT = 6-15 cells (100X) (0-5/hpf); Lymphocytes 14 % (21-51); MDiff Complete? YES; Metamyelocyte 2 % (0-0); Monocytes 3 % (0-10); Myelocyte 3 % (0-0); Neutrophil 52 % (42-75); Ovalocytes SLIGHT = 2-5 cells (100X) (0-1/hpf); Platelet Morphology Comment Appears Increased; Polychromasia SLIGHT = 2-3 cells (100X) (0-2/hpf)
[2021-10-20 14:52] LABS: Carbon Dioxide Less than 8 mmol/L (22-29)
[2021-10-20 14:53] LABS: Phosphorus 1.2 mg/dL (2.3-4.7)
[2021-10-20] MEDS ORDERED: NS 0.9% w/ 20 MEQ KCL 1,000 ML IV SCH (15:15)
[2021-10-20] MEDS ORDERED: Iopamidol-370 76% 500 ML 1 ML ONE (15:27)
[2021-10-20] MEDS ORDERED: Morphine 2 MG/ML VIAL ONE ×2 (15:40→16:36)
[2021-10-20] MEDS ORDERED: Morphine 2 MG/ML VIAL SLOW IVP SCH ×2 (15:45→16:45)
[2021-10-20] MEDS ORDERED: Sodium Chloride 0.9% 1,000 ML IV PRN ×4 (16:28)
[2021-10-20] MEDS ORDERED: NS 0.9% w/ 20 MEQ KCL 1,000 ML IV PRN ×2 (16:28)
[2021-10-20] MEDS ORDERED: Dextrose 5 %-0.45 % NaCl 1,000 ML IV PRN (16:28)
[2021-10-20] MEDS ORDERED: Ondansetron PF 4 MG/2 ML Vial IVP PRN (16:38)
[2021-10-20] MEDS ORDERED: Lorazepam 2 MG/ML VIAL IM PRN (16:49)
[2021-10-20] MEDS ORDERED: Electrolyte Replacement Protocol 1 EACH FS SCH (17:00)
[2021-10-20 17:49] LABS: Analyzer IN Cardio ER; Calcium, Ionized (venous) 1.22 mmol/L (1.16-1.32); Chloride (VBG) 117 mmol/L (98-106); Potassium (VBG) 5.48 mmol/L (3.70-5.30); Sodium 142.7 mmol/L (133-146)
[2021-10-20 17:51] LABS: Actual Bicarbonate (HCO3v) 4 mEq/L (22-28); Base Excess -30.1 mEq/L (-2.0 to +3.0); pH (venous) 6.81 (7.32-7.43)
[2021-10-20] MEDS ORDERED: Folic Acid 1 MG TAB PO SCH (18:00)
[2021-10-20] MEDS ORDERED: Multivit, Therapeutic 1 TAB PO SCH (18:00)
[2021-10-20 18:29] LABS: Actual Bicarbonate (HCO3a) 2.5 mEq/L (22-28); Base Excess (BEa) -27.8 mEq/L (-2.0 to +3.0); Calcium, Ionized (arterial) 1.27 mmol/L (1.12-1.30); Carboxyhemoglobin (COHb) 0.5 gm% (0.0-3.0); Hemoglobin (Hb) 13.2 g/dL (12.0-16.0); O2 Tension (PaO2), arterial 132.8 mmHg (80.0-100.0); Potassium - ABG Lab 4.85 mmol/L (3.70-5.30)
[2021-10-20 18:34] LABS: ALV-art Gradient 2.305 mmHg (0-20); CO2 Tension 11.7 mmHg (35.0-45.0); Puncture Site RRA; pH, Arterial 6.95 (7.35-7.45)
[2021-10-20 18:37] LABS: BUN (Urea Nitrogen) 10 mg/dL (7.0-18.7); Calc. Creatinine Clearance 0 mL/min (70-130); Calcium 8.5 mg/dL (7.8-10.44); Carbon Dioxide Less than 8 mmol/L (22-29); Chloride 116 mmol/L (98-107); Estimated GFR 90; Glucose 230 mg/dL (70-105); Potassium 5.1 mmol/L (3.5-5.1); Sodium 137 mmol/L (136-145)
[2021-10-20] MEDS ORDERED: Sodium Bicarb 50 MEQ/50 ML VIAL ONE (18:50)
[2021-10-20] MEDS: Thiamine HCl 200 MG/2 ML VIAL SLOW IVP SCH (18:54)
[2021-10-20] MEDS: Lorazepam 1 MG TAB PO PRN (18:55)
[2021-10-20] MEDS ORDERED: Sodium Bicarb 50 MEQ/50 ML VIAL IVP SCH (19:15)
[2021-10-20] MEDS: Morphine 4 MG/ML VIAL SLOW IVP PRN (19:17)
[2021-10-20] MEDS ORDERED: Potassium Phosphate 22 MMOL in Sodium Chloride 0.9% 250 ML 250 ML IVPB SCH (19:30)
[2021-10-20] MEDS ORDERED: Piperacillin/Tazobactam 3.375 GM in Sodium Chloride 0.9% 100 ML IVPB SCH (19:30)
[2021-10-20] MEDS ORDERED: Magnesium 2 GM/50 ML(in water) 2 GM in Premix Bag 1 BAG IVPB SCH (19:30)
[2021-10-20] MEDS ORDERED: Lidocaine 1% (PF) 30 ML VIAL ONE (19:49)
[2021-10-20] MEDS ORDERED: Vancomycin 1.5 GRAM/300 ML BAG 1.5 GM in Premix Bag 1 BAG IVPB SCH (20:00)
[2021-10-20 20:14] LABS: Actual Bicarbonate (HCO3a) 4.7 mEq/L (22-28); Calcium, Ionized (arterial) 1.21 mmol/L (1.12-1.30); Carboxyhemoglobin (COHb) 0.5 gm% (0.0-3.0); O2 Tension (PaO2), arterial 117.8 mmHg (80.0-100.0); Potassium - ABG Lab 3.88 mmol/L (3.70-5.30)
[2021-10-20 20:17] LABS: pH, Arterial 7.14 (7.35-7.45)
[2021-10-20 20:18] LABS: CO2 Tension 14.2 mmHg (35.0-45.0); Puncture Site RBA
[2021-10-20] MEDS ORDERED: Cefepime 2 GM in Sodium Chloride 0.9% 100 ML IVPB SCH (21:00)
[2021-10-20 21:29] LABS: BUN (Urea Nitrogen) 8 mg/dL (7.0-18.7); Calc. Creatinine Clearance 104 mL/min (70-130); Calcium 8.3 mg/dL (7.8-10.44); Carbon Dioxide Less than 8 mmol/L (22-29); Chloride 114 mmol/L (98-107); Estimated GFR 99; Glucose 68 mg/dL (70-105); Potassium 4.9 mmol/L (3.5-5.1); Sodium 138 mmol/L (136-145)
[2021-10-20] MEDS: D5 1/2 NS w/20 mEq KCL 1,000 ML IV PRN (21:46)
[2021-10-21 01:18] LABS: BUN (Urea Nitrogen) 7 mg/dL (7.0-18.7); Calc. Creatinine Clearance 98 mL/min (70-130); Calcium 8.4 mg/dL (7.8-10.44); Chloride 114 mmol/L (98-107); Estimated GFR 92; Glucose 195 mg/dL (70-105); Sodium 136 mmol/L (136-145)
[2021-10-21 01:20] LABS: Carbon Dioxide Less than 8 mmol/L (22-29)
[2021-10-21] MEDS: Piperacillin/Tazobactam 3.375 GM in Sodium Chloride 0.9% 100 ML IVPB SCH ×3 (01:24→16:11)
[2021-10-21] MEDS: Acetaminophen 325 MG TAB PO PRN ×3 (01:40→10:44)
[2021-10-21] MEDS: D5 1/2 NS w/20 mEq KCL 1,000 ML IV PRN ×6 (02:07→22:29)
[2021-10-21 04:19] LABS: ALT (SGPT) 11 U/L (8-55); AST (SGOT) 15 U/L (5-34); Alkaline Phosphatase 119 U/L (40-110); BUN (Urea Nitrogen) 5 mg/dL (7.0-18.7); Bilirubin, Direct 0.1 mg/dL (0.1-0.3); Bilirubin, Total 0.2 mg/dL (0.2-1.2); Calc. Creatinine Clearance 104 mL/min (70-130); Calcium 7.6 mg/dL (7.8-10.44); Carbon Dioxide Less than 8 mmol/L (22-29); Chloride 114 mmol/L (98-107); Estimated GFR 99; Globulin 3.7 g/dL (2.4-3.5); Glucose 232 mg/dL (70-105); Potassium 3.9 mmol/L (3.5-5.1); Protein, Total 6.7 g/dL (6.0-8.3); Sodium 133 mmol/L (136-145)
[2021-10-21 04:29] LABS: #Lymphocytes 1.2 thou/uL (1.20-3.40); #Monocytes 0.5 thou/uL (0.11-0.59); #Neutrophils 9.7 thou/uL (1.40-6.50); %Basophils 0.2 % (0.0-1.0); %Eosinophils 0.3 % (0.0-10.0); %Lymphocytes 10.3 % (21.0-51.0); %Monocytes 4.1 % (0.0-10.0); %Neutrophils 85.1 % (42.0-75.0); Mean Corpuscular HGB CONC 32.7 g/dL (32.0-36.0); Mean Corpuscular Volume 79.4 fL (78.0-98.0); Mean Platelet Volume 7.2 fL (7.4-10.4); Platelet Count 277 thou/uL (130-400); RBC Distribution Width 17.6 % (11.5-14.5); Red Blood Cell (RBC) Count 4.24 mill/uL (4.20-5.40); White Blood Cell (WBC) Count 11.4 thou/uL (4.8-10.8)
[2021-10-21] MEDS: Vancomycin 1 GM in Premix Bag 1 BAG IVPB SCH ×3 (04:46→19:37)
[2021-10-21 05:15] LABS: Actual Bicarbonate (HCO3a) 9.6 mEq/L (22-28); Base Excess (BEa) -15.8 mEq/L (-2.0 to +3.0); Calcium, Ionized (arterial) 1.16 mmol/L (1.12-1.30); Carboxyhemoglobin (COHb) 0.3 gm% (0.0-3.0); Hemoglobin (Hb) 11.3 g/dL (12.0-16.0); O2 Tension (PaO2), arterial 105.2 mmHg (80.0-100.0); Potassium - ABG Lab 3.61 mmol/L (3.70-5.30)
[2021-10-21 05:16] LABS: CO2 Tension 22.6 mmHg (35.0-45.0); Puncture Site RRA; pH, Arterial 7.25 (7.35-7.45)
[2021-10-21 08:13] LABS: Magnesium 1.9 mg/dL (1.6-2.6)
[2021-10-21] MEDS: Morphine 4 MG/ML VIAL SLOW IVP PRN ×4 (08:19→22:20)
[2021-10-21] MEDS: Enoxaparin Sodium 30 MG/0.3 ML SYRINGE SC SCH (08:20)
[2021-10-21] MEDS: Multivit, Therapeutic 1 TAB PO SCH (08:20)
[2021-10-21] MEDS: Folic Acid 1 MG TAB PO SCH (08:20)
[2021-10-21 08:30] LABS: Phosphorus 1.1 mg/dL (2.3-4.7)
[2021-10-21] MEDS: HUMULIN R 100 UNITS in Sodium Chloride 0.9% 100 ML IVPB SCH (08:43)
[2021-10-21] MEDS ORDERED: Sodium Phosphate 40 MMOL in Sodium Chloride 0.9% 250 ML 250 ML IVPB SCH (09:00)
[2021-10-21] MEDS ORDERED: Magnesium 2 GM/50 ML(in water) 2 GM in Premix Bag 1 BAG IVPB SCH (09:15)
[2021-10-21] MEDS: Lorazepam 1 MG TAB PO PRN (10:44)
[2021-10-21 12:06] LABS: Anion Gap 12 mmol/L (10-20); BUN (Urea Nitrogen) Less than 4 mg/dL (7.0-18.7); Calc. Creatinine Clearance 125 mL/min (70-130); Calcium 7.6 mg/dL (7.8-10.44); Carbon Dioxide 10 mmol/L (22-29); Chloride 113 mmol/L (98-107); Estimated GFR 124; Glucose 147 mg/dL (70-105); Sodium 132 mmol/L (136-145)
[2021-10-21] MEDS: Potassium Chloride 20 MEQ in Premix Bag 1 BAG IVPB SCH ×4 (14:26→22:23)
[2021-10-21 14:31] LABS: Syphilis Antibody Index 13.16 S/CO (<1.00 Non-Reactive)
[2021-10-21 14:34] LABS: Syphilis Antibody REACTIVE (Nonreactive)
[2021-10-21] MEDS: Thiamine HCl 200 MG/2 ML VIAL SLOW IVP SCH (16:11)
[2021-10-21] MEDS ORDERED: Lorazepam 1 MG TAB PO PRN (16:49)
[2021-10-21] MEDS ORDERED: Bicillin LA 2.4 MILL.UNITS/4 ML SYRINGE IM SCH (17:00)
[2021-10-21 19:32] LABS: Vancomycin, Trough 15.2 ug/mL
[2021-10-21 19:54] LABS: Calcium 7.5 mg/dL (7.8-10.44); Chloride 115 mmol/L (98-107); Potassium 3.5 mmol/L (3.5-5.1); Sodium 136 mmol/L (136-145)
[2021-10-21 19:55] LABS: Glucose 208 mg/dL (70-105)
[2021-10-21 19:56] LABS: Anion Gap 14 mmol/L (10-20); Carbon Dioxide 11 mmol/L (22-29)
[2021-10-21 19:58] LABS: Calc. Creatinine Clearance 127 mL/min (70-130); Estimated GFR 125
[2021-10-21 19:59] LABS: BUN (Urea Nitrogen) Less than 4 mg/dL (7.0-18.7)
[2021-10-22] MEDS: Piperacillin/Tazobactam 3.375 GM in Sodium Chloride 0.9% 100 ML IVPB SCH ×4 (00:12→23:23)
[2021-10-22] MEDS: Morphine 4 MG/ML VIAL SLOW IVP PRN ×4 (02:10→22:37)
[2021-10-22] MEDS: D5 1/2 NS w/20 mEq KCL 1,000 ML IV PRN ×3 (02:38→09:52)
[2021-10-22] MEDS: Vancomycin 1 GM in Premix Bag 1 BAG IVPB SCH ×3 (04:09→20:58)
[2021-10-22] MEDS: HUMULIN R 100 UNITS in Sodium Chloride 0.9% 100 ML IVPB SCH (06:30)
[2021-10-22 06:56] LABS: #Eosinphils 0.1 thou/uL (0.0-0.7); #Lymphocytes 0.8 thou/uL (1.20-3.40); #Monocytes 0.5 thou/uL (0.11-0.59); #Neutrophils 6.2 thou/uL (1.40-6.50); %Basophils 0.3 % (0.0-1.0); %Eosinophils 1.2 % (0.0-10.0); %Lymphocytes 10.4 % (21.0-51.0); %Neutrophils 81.1 % (42.0-75.0); Hemoglobin 11.1 g/dL (12.0-16.0); Mean Corpuscular HGB CONC 31.5 g/dL (32.0-36.0); Mean Corpuscular Volume 79.4 fL (78.0-98.0); Mean Platelet Volume 7.2 fL (7.4-10.4); Platelet Count 299 thou/uL (130-400); RBC Distribution Width 18.1 % (11.5-14.5); Red Blood Cell (RBC) Count 4.43 mill/uL (4.20-5.40); White Blood Cell (WBC) Count 7.6 thou/uL (4.8-10.8)
[2021-10-22 07:00] LABS: Hemoglobin A1c Greater than 14.0 % (4.0-6.0)
[2021-10-22 07:14] LABS: ALT (SGPT) 8 U/L (8-55); AST (SGOT) 13 U/L (5-34); Albumin 2.8 g/dL (3.5-5.0); Alkaline Phosphatase 107 U/L (40-110); Anion Gap 14 mmol/L (10-20); BUN (Urea Nitrogen) Less than 4 mg/dL (7.0-18.7); Bilirubin, Total 0.3 mg/dL (0.2-1.2); Calc. Creatinine Clearance 118 mL/min (70-130); Calcium 7.9 mg/dL (7.8-10.44); Carbon Dioxide 13 mmol/L (22-29); Chloride 113 mmol/L (98-107); Estimated GFR 119; Globulin 3.7 g/dL (2.4-3.5); Glucose 250 mg/dL (70-105); Magnesium 1.9 mg/dL (1.6-2.6); Potassium 3.5 mmol/L (3.5-5.1); Protein, Total 6.5 g/dL (6.0-8.3); Sodium 136 mmol/L (136-145)
[2021-10-22 07:20] LABS: Phosphorus 1.1 mg/dL (2.3-4.7)
[2021-10-22] MEDS: Multivit, Therapeutic 1 TAB PO SCH (08:17)
[2021-10-22] MEDS: Acetaminophen 325 MG TAB PO PRN ×2 (08:17→17:44)
[2021-10-22] MEDS: Enoxaparin Sodium 30 MG/0.3 ML SYRINGE SC SCH (08:17)
[2021-10-22] MEDS: Folic Acid 1 MG TAB PO SCH (08:17)
[2021-10-22] MEDS: PHOS-NAK 1 PKT PACK PO SCH ×4 (09:50→21:13)
[2021-10-22] MEDS ORDERED: Magnesium 2 GM/50 ML(in water) 2 GM in Premix Bag 1 BAG IVPB SCH (10:00)
[2021-10-22] MEDS ORDERED: Potassium Bicarbonate/Cit Ac 20 MEQ TAB PO SCH (12:00)
[2021-10-22] MEDS ORDERED: Insulin Glargine 30 UNITS/0.3 ML VIAL SC SCH ×3 (13:00→21:00)
[2021-10-22] MEDS ORDERED: HumaLOG 300 UNITS/3 ML VIAL SC PRN (15:45)
[2021-10-22] MEDS ORDERED: Dextrose 50% Abboject 50 ML SYRINGE IVP PRN (15:45)
[2021-10-22] MEDS ORDERED: Dextrose 5% in Water 1,000 ML IV PRN (15:45)
[2021-10-22] MEDS: Sodium Chloride 0.9% 1,000 ML IV SCH (15:47)
[2021-10-22] MEDS ORDERED: Lorazepam 1 MG TAB PO PRN (16:49)
[2021-10-22] MEDS: HumaLOG 300 UNITS/3 ML VIAL SC PRN (16:54)
[2021-10-22] MEDS: Thiamine HCl 200 MG/2 ML VIAL SLOW IVP SCH (16:54)
[2021-10-22 17:20] LABS: Potassium 3.5 mmol/L (3.5-5.1)
[2021-10-22 19:29] LABS: Vancomycin, Trough 14.5 ug/mL
[2021-10-22] MEDS: Insulin Glargine 30 UNITS/0.3 ML VIAL SC SCH (20:59)
[2021-10-23] MEDS: Sodium Chloride 0.9% 1,000 ML IV SCH ×2 (01:00→08:00)
[2021-10-23] MEDS: Morphine 4 MG/ML VIAL SLOW IVP PRN ×2 (03:24→08:07)
[2021-10-23] MEDS: Vancomycin 1 GM in Premix Bag 1 BAG IVPB SCH (04:30)
[2021-10-23] MEDS: Acetaminophen 325 MG TAB PO PRN (04:42)
[2021-10-23] MEDS: HumaLOG 300 UNITS/3 ML VIAL SC PRN (06:42)
[2021-10-23 07:34] LABS: #Eosinphils 0.1 thou/uL (0.0-0.7); #Monocytes 0.4 thou/uL (0.11-0.59); #Neutrophils 4.1 thou/uL (1.40-6.50); %Basophils 0.7 % (0.0-1.0); %Eosinophils 1.5 % (0.0-10.0); %Lymphocytes 17.6 % (21.0-51.0); %Monocytes 6.4 % (0.0-10.0); %Neutrophils 73.9 % (42.0-75.0); Hemoglobin 10.2 g/dL (12.0-16.0); Mean Corpuscular HGB CONC 32.6 g/dL (32.0-36.0); Mean Corpuscular Hemoglobin 25.7 pg (27.0-31.0); Mean Corpuscular Volume 78.9 fL (78.0-98.0); Mean Platelet Volume 7.2 fL (7.4-10.4); Platelet Count 296 thou/uL (130-400); Red Blood Cell (RBC) Count 3.98 mill/uL (4.20-5.40); White Blood Cell (WBC) Count 5.6 thou/uL (4.8-10.8)
[2021-10-23 07:51] LABS: ALT (SGPT) 13 U/L (8-55); AST (SGOT) 18 U/L (5-34); Albumin 2.7 g/dL (3.5-5.0); Alkaline Phosphatase 130 U/L (40-110); Anion Gap 15 mmol/L (10-20); BUN (Urea Nitrogen) Less than 4 mg/dL (7.0-18.7); Bilirubin, Total 0.3 mg/dL (0.2-1.2); Calc. Creatinine Clearance 138 mL/min (70-130); Calcium 7.7 mg/dL (7.8-10.44); Carbon Dioxide 20 mmol/L (22-29); Chloride 108 mmol/L (98-107); Estimated GFR 126; Globulin 3.5 g/dL (2.4-3.5); Glucose 267 mg/dL (70-105); Potassium 3.5 mmol/L (3.5-5.1); Protein, Total 6.2 g/dL (6.0-8.3); Sodium 139 mmol/L (136-145)
[2021-10-23 07:52] VITALS: TEMP 97.2
[2021-10-23] MEDS: Piperacillin/Tazobactam 3.375 GM in Sodium Chloride 0.9% 100 ML IVPB SCH (08:00)
[2021-10-23] MEDS ORDERED: Potassium Chloride 20 MEQ TAB PO SCH (08:00)
[2021-10-23 08:04] LABS: Phosphorus 2.4 mg/dL (2.3-4.7)
[2021-10-23] MEDS: Multivit, Therapeutic 1 TAB PO SCH (08:08)
[2021-10-23] MEDS: Insulin Glargine 30 UNITS/0.3 ML VIAL SC SCH (08:08)
[2021-10-23] MEDS: Folic Acid 1 MG TAB PO SCH (08:08)
[2021-10-23] MEDS: Enoxaparin Sodium 30 MG/0.3 ML SYRINGE SC SCH (08:08)
[2021-10-23] MEDS ORDERED: Magnesium 2 GM/50 ML(in water) 2 GM in Premix Bag 1 BAG IVPB SCH (08:45)
[2021-10-23 13:02] VITALS: BMI 23.4
[2021-10-23] MEDS ORDERED: Lorazepam 0.5 MG TAB PO PRN (16:49)
[2021-10-23] MEDS ORDERED: Thiamine 100 MG TAB PO SCH (17:00)
== END 2021-10-23 15:35 | disposition home or self-care (01) | DRG 638 ==
LOC: ERS 13:02 → ERHOLD 15:16 → IMCU/EMU 18:28 → CCU 21:03 → IMCU/EMU 10-21 09:44
PROVIDERS: ADMIT Family Medicine; ATTEND Family Medicine
PROC: HZ2ZZZZ Detoxification Services for Substance Abuse Treatment (ICD-10-PCS; principal; 2021-10-20)
PROC: 0J970ZZ Drainage of Back Subcutaneous Tissue and Fascia, Open Approach (ICD-10-PCS; 2021-10-20)
PROC: 3E0 Administration, Physiological Systems and Anatomical Regions, Introduction (ICD-10-PCS; 2021-10-20)
DX: E10.10 Type 1 diabetes mellitus with ketoacidosis without coma (principal); L02.212 Cutaneous abscess of back [any part, except buttock and flank]; R45.851 Suicidal ideations; F41.9 Anxiety disorder, unspecified; F32.A Depression, unspecified; R07.9 Chest pain, unspecified; D64.9 Anemia, unspecified; D72.829 Elevated white blood cell count, unspecified; B95.61 Methicillin susceptible Staphylococcus aureus infection as the cause of diseases classified elsewhere; A53.9 Syphilis, unspecified; E87.6 Hypokalemia; F10.10 Alcohol abuse, uncomplicated; R11.2 Nausea with vomiting, unspecified; Z91.51 Personal history of suicidal behavior; Z87.891 Personal history of nicotine dependence; Z91.14 Patient's other noncompliance with medication regimen; Z79.4 Long term (current) use of insulin
CPT/HCPCS: 36415; 36416; 36600; 71275; 80048; 80053; 80202; 80306; 80307; 81003; 81015; 82010; 82248; 82550; 82805; 83036; 83605; 83735; 84100; 84443; 84703; 85025; 86593; 86780; 87040; 87070; 87077; 87186; 87205; 93005; 96361; 96365; 96366; 96368; 96375; 97139; J0561; J1650; J1815; J2001; J2270; J2405; J2543; J2765; J3370; J3411; J3475; J3480; J3490; J7050; Q9967; U0003; U0005

== ENCOUNTER 2021-11-03 13:59 | Inpatient (IN) | payer SELFPAY ==
[2021-11-03 14:41] LABS: Base Excess -26.2 mEq/L (-2.0 to +3.0); Calcium, Ionized (venous) 1.19 mmol/L (1.16-1.32); Chloride (VBG) 110 mmol/L (98-106); Hemoglobin (Hb) 13.5 g/dL (11.7-15.5); Potassium (VBG) 5.92 mmol/L (3.70-5.30); Sodium 138.5 mmol/L (133-146)
[2021-11-03 14:44] LABS: Actual Bicarbonate (HCO3v) 5 mEq/L (22-28); pH (venous) 6.95 (7.32-7.43)
[2021-11-03] MEDS ORDERED: Fentanyl 100 MCG/2 ML VIAL ONE (14:55)
[2021-11-03 14:56] LABS: Hemoglobin 13.6 g/dL (12.0-16.0); Mean Corpuscular HGB CONC 37.1 g/dL (32.0-36.0); Mean Corpuscular Hemoglobin 29.3 pg (27.0-31.0); Mean Corpuscular Volume 78.9 fL (78.0-98.0); Mean Platelet Volume 7.3 fL (7.4-10.4); Platelet Count 665 thou/uL (130-400); Red Blood Cell (RBC) Count 4.66 mill/uL (4.20-5.40); White Blood Cell (WBC) Count 15.3 thou/uL (4.8-10.8)
[2021-11-03 14:57] LABS: #Basophils 0.1 thou/uL (0.0-0.2); #Eosinphils 0.1 thou/uL (0.0-0.7); #Lymphocytes 3.2 thou/uL (1.20-3.40); #Monocytes 0.5 thou/uL (0.11-0.59); #Neutrophils 11.7 thou/uL (1.40-6.50); %Basophils 0.6 % (0.0-1.0); %Eosinophils 0.6 % (0.0-10.0); %Lymphocytes 20.7 % (21.0-51.0); %Neutrophils 75.2 % (42.0-75.0)
[2021-11-03 15:09] LABS: Bilirubin, Total Less than 1.0 mg/dL (0.2-1.2)
[2021-11-03] MEDS ORDERED: Ondansetron PF 4 MG/2 ML Vial ONE (15:15)
[2021-11-03 15:21] LABS: BHCG - Serum Negative (NEGATIVE); Pregs Control Background? CLEAR/WHITE (CLR/WHITE); Pregs Control Bar Appear? YES (CONTROL BAR)
[2021-11-03 15:34] LABS: Albumin 3.9 g/dL (3.5-5.0)
[2021-11-03 15:35] LABS: Chloride 107 mmol/L (98-107); Potassium 4.7 mmol/L (3.5-5.1); Sodium 131 mmol/L (136-145)
[2021-11-03 15:36] LABS: Calcium 8.5 mg/dL (7.8-10.44); Glucose 359 mg/dL (70-105); Protein, Total 10.9 g/dL (6.0-8.3)
[2021-11-03 15:39] LABS: Alkaline Phosphatase 143 U/L (40-110)
[2021-11-03 15:40] LABS: Calc. Creatinine Clearance 0 mL/min (70-130); Estimated GFR 81
[2021-11-03 15:41] LABS: BUN (Urea Nitrogen) 10 mg/dL (7.0-18.7)
[2021-11-03 15:54] LABS: Carbon Dioxide Less than 8 mmol/L (22-29)
[2021-11-03] MEDS ORDERED: Insulin Regular 300 UNITS/3 ML VIAL ONE (15:59)
[2021-11-03] MEDS ORDERED: Morphine 2 MG/ML VIAL ONE (15:59)
[2021-11-03] MEDS ORDERED: INSULIN REGULAR IN 0.9 % NACL 100 UNIT/100 ML BAG ONE (15:59)
[2021-11-03] MEDS ORDERED: NS 0.9% w/ 20 MEQ KCL 1,000 ML ONE (16:18)
[2021-11-03 16:39] LABS: AST (SGOT) 23 U/L (5-34)
[2021-11-03 16:40] LABS: ALT (SGPT) 11 U/L (8-55)
[2021-11-03] MEDS ORDERED: NS 0.9% w/ 20 MEQ KCL 1,000 ML IV PRN ×2 (17:02)
[2021-11-03] MEDS ORDERED: Dextrose 5 %-0.45 % NaCl 1,000 ML IV PRN (17:02)
[2021-11-03] MEDS ORDERED: Sodium Chloride 0.9% 1,000 ML IV PRN ×4 (17:02)
[2021-11-03] MEDS ORDERED: Ondansetron ODT 4 MG TAB PO PRN (17:02)
[2021-11-03] MEDS ORDERED: Electrolyte Replacement Protocol 1 EACH IVPB PRN (17:02)
[2021-11-03] MEDS ORDERED: Senokot S 8.6-50 MG TAB PO PRN (17:02)
[2021-11-03] MEDS ORDERED: Ondansetron PF 4 MG/2 ML Vial IVP PRN (17:02)
[2021-11-03] MEDS ORDERED: Acetaminophen 325 MG TAB PO PRN (17:02)
[2021-11-03] MEDS ORDERED: Enoxaparin Sodium 40 MG/0.4 ML SYRINGE SC SCH (17:15)
[2021-11-03] MEDS ORDERED: HUMULIN R 100 UNITS in Sodium Chloride 0.9% 100 ML IVPB SCH (17:15)
[2021-11-03 17:35] LABS: Bilirubin Negative (Negative); Blood, Urine 1+ (Negative); Clarity Turbid (Clear); Glucose, Urine (Dipstick) Greater than 1000 mg/dL (Negative); Ketone, Urine Greater than 150 mg/dL (Negative); Leukocyte 25 Leu/uL (Negative); Nitrite Negative (Negative); Protein, Urine (Dipstick) 70 mg/dL (Neg-Trace); Specific Gravity, Urine 1.024 (1.002-1.036); Squamous Epithelial 21-50 HPF (0-3); Urobilinogen Normal mg/dL (Less than 2); Yeast-Budding 1+ HPF (None Seen); pH, Urine 5.5 (5.0-9.0)
[2021-11-03 17:41] LABS: Bacteria/HPF 1+ HPF (None Seen)
[2021-11-03] MEDS: Morphine 2 MG/ML VIAL SLOW IVP PRN ×2 (18:36→22:12)
[2021-11-03] MEDS: D5 1/2 NS w/20 mEq KCL 1,000 ML IV PRN (19:44)
[2021-11-03 20:19] VITALS: BMI 24.1
[2021-11-03] MEDS: Famotidine/PF 20 mg/2ml Vial SLOW IVP SCH (20:20)
[2021-11-03 21:12] LABS: Base Excess -29.5 mEq/L (-2.0 to +3.0); Calcium, Ionized (venous) 0.96 mmol/L (1.16-1.32); Chloride (VBG) 118 mmol/L (98-106); Hemoglobin (Hb) 14.3 g/dL (11.7-15.5); Potassium (VBG) 4.24 mmol/L (3.70-5.30); Sodium 140.8 mmol/L (133-146)
[2021-11-03 21:14] LABS: Actual Bicarbonate (HCO3v) 3 mEq/L (22-28); pH (venous) 6.88 (7.32-7.43)
[2021-11-03] MEDS: CEFAZOLIN 1 GM in Sodium Chloride 0.9% 100 ML IVPB SCH (22:11)
[2021-11-03 22:47] LABS: Sodium 147 mmol/L (136-145)
[2021-11-03 22:48] LABS: Glucose 136 mg/dL (70-105)
[2021-11-03 22:58] LABS: Calc. Creatinine Clearance 30 mL/min (70-130); Calcium 4.1 mg/dL (7.8-10.44); Carbon Dioxide Less than 8 mmol/L (22-29); Estimated GFR 26; Magnesium 0.9 mg/dL (1.6-2.6); Phosphorus Less than 1.0 mg/dL (2.3-4.7); Potassium 2.1 mmol/L (3.5-5.1)
[2021-11-03 23:02] LABS: Chloride 127 mmol/L (98-107)
[2021-11-03 23:03] LABS: BUN (Urea Nitrogen) 4 mg/dL (7.0-18.7)
[2021-11-03] MEDS: Potassium Chloride 20 MEQ in Premix Bag 1 BAG IVPB SCH (23:20)
[2021-11-03] MEDS ORDERED: Calcium Gluc 4.6 MEQ/10 ML (100 MG/ML) SLOW IVP SCH (23:24)
[2021-11-03] MEDS ORDERED: Sodium Bicarbonate 150 MEQ in Sterile Water Injection 1,000 ML IV SCH (23:30)
[2021-11-03] MEDS ORDERED: Potassium Phosphate 30 MMOL in Sodium Chloride 0.9% 250 ML 250 ML IVPB SCH (23:30)
[2021-11-03] MEDS ORDERED: Sodium Bicarb 50 MEQ/50 ML VIAL IVP SCH (23:30)
[2021-11-03] MEDS ORDERED: Magnesium Sulfate In Water 4 GM in Premix Bag 1 BAG IVPB SCH (23:30)
[2021-11-03] MEDS: Potassium Chloride 20 MEQ TAB PO SCH (23:43)
[2021-11-04] MEDS: D5 1/2 NS w/20 mEq KCL 1,000 ML IV PRN ×5 (00:05→16:54)
[2021-11-04] MEDS: Potassium Chloride 20 MEQ in Premix Bag 1 BAG IVPB SCH ×3 (01:18→16:44)
[2021-11-04] MEDS: Potassium Chloride 20 MEQ TAB PO SCH (01:21)
[2021-11-04 02:05] LABS: Base Excess -16.6 mEq/L (-2.0 to +3.0); Chloride (VBG) 113 mmol/L (98-106); Hemoglobin (Hb) 12.8 g/dL (11.7-15.5); Potassium (VBG) 4.79 mmol/L (3.70-5.30); Sodium 139.6 mmol/L (133-146)
[2021-11-04 02:09] LABS: Actual Bicarbonate (HCO3v) 10 mEq/L (22-28); pH (venous) 7.21 (7.32-7.43)
[2021-11-04 03:49] LABS: #Basophils 0.1 thou/uL (0.0-0.2); #Eosinphils 0.1 thou/uL (0.0-0.7); #Lymphocytes 1.9 thou/uL (1.20-3.40); #Monocytes 0.6 thou/uL (0.11-0.59); #Neutrophils 10.2 thou/uL (1.40-6.50); %Basophils 0.5 % (0.0-1.0); %Eosinophils 0.8 % (0.0-10.0); %Lymphocytes 14.7 % (21.0-51.0); %Monocytes 4.8 % (0.0-10.0); %Neutrophils 79.2 % (42.0-75.0); Hemoglobin 11.9 g/dL (12.0-16.0); Mean Corpuscular HGB CONC 34.2 g/dL (32.0-36.0); Mean Corpuscular Hemoglobin 27.2 pg (27.0-31.0); Mean Corpuscular Volume 79.5 fL (78.0-98.0); Mean Platelet Volume 6.8 fL (7.4-10.4); Platelet Count 493 thou/uL (130-400); RBC Distribution Width 18.2 % (11.5-14.5); Red Blood Cell (RBC) Count 4.37 mill/uL (4.20-5.40); White Blood Cell (WBC) Count 12.8 thou/uL (4.8-10.8)
[2021-11-04 04:06] LABS: Phosphorus Less than 1.0 mg/dL (2.3-4.7)
[2021-11-04 04:08] LABS: ALT (SGPT) 8 U/L (8-55); AST (SGOT) 15 U/L (5-34); Albumin 3.1 g/dL (3.5-5.0); Alkaline Phosphatase 104 U/L (40-110); Anion Gap 19 mmol/L (10-20); BUN (Urea Nitrogen) Less than 4 mg/dL (7.0-18.7); Bilirubin, Total 0.2 mg/dL (0.2-1.2); Calc. Creatinine Clearance 92 mL/min (70-130); Calcium 7.7 mg/dL (7.8-10.44); Carbon Dioxide 10 mmol/L (22-29); Chloride 113 mmol/L (98-107); Estimated GFR 98; Globulin 5.3 g/dL (2.4-3.5); Glucose 168 mg/dL (70-105); Protein, Total 8.4 g/dL (6.0-8.3); Sodium 138 mmol/L (136-145)
[2021-11-04 04:14] LABS: Hemoglobin A1c Greater than 14.0 % (4.0-6.0)
[2021-11-04 04:47] LABS: SARS-CoV-2 NAA Rapid Test Not Detected (NotDetected)
[2021-11-04] MEDS: CEFAZOLIN 1 GM in Sodium Chloride 0.9% 100 ML IVPB SCH ×3 (06:27→20:47)
[2021-11-04] MEDS: Famotidine/PF 20 mg/2ml Vial SLOW IVP SCH ×2 (08:01→20:33)
[2021-11-04] MEDS: Morphine 2 MG/ML VIAL SLOW IVP PRN ×2 (08:16→16:44)
[2021-11-04 10:26] LABS: Anion Gap 14 mmol/L (10-20); BUN (Urea Nitrogen) Less than 4 mg/dL (7.0-18.7); Calc. Creatinine Clearance 105 mL/min (70-130); Calcium 7.2 mg/dL (7.8-10.44); Carbon Dioxide 14 mmol/L (22-29); Chloride 112 mmol/L (98-107); Estimated GFR 114; Glucose 165 mg/dL (70-105); Potassium 3.4 mmol/L (3.5-5.1); Sodium 137 mmol/L (136-145)
[2021-11-04 13:42] LABS: Anion Gap 12 mmol/L (10-20); BUN (Urea Nitrogen) Less than 4 mg/dL (7.0-18.7); Calc. Creatinine Clearance 111 mL/min (70-130); Calcium 7.2 mg/dL (7.8-10.44); Carbon Dioxide 15 mmol/L (22-29); Chloride 112 mmol/L (98-107); Estimated GFR 121; Glucose 179 mg/dL (70-105); Potassium 3.4 mmol/L (3.5-5.1); Sodium 136 mmol/L (136-145)
[2021-11-04] MEDS ORDERED: Fluconazole 100 MG TAB PO SCH ×2 (15:00→15:15)
[2021-11-04 17:55] LABS: Anion Gap 11 mmol/L (10-20); BUN (Urea Nitrogen) Less than 4 mg/dL (7.0-18.7); Calc. Creatinine Clearance 112 mL/min (70-130); Calcium 7.5 mg/dL (7.8-10.44); Carbon Dioxide 18 mmol/L (22-29); Chloride 112 mmol/L (98-107); Estimated GFR 122; Glucose 176 mg/dL (70-105); Potassium 3.7 mmol/L (3.5-5.1); Sodium 137 mmol/L (136-145)
[2021-11-04] MEDS ORDERED: HumaLOG 300 UNITS/3 ML VIAL SC PRN (18:02)
[2021-11-04] MEDS ORDERED: Insulin Glargine 30 UNITS/0.3 ML VIAL SC SCH (18:15)
[2021-11-04] MEDS: Sodium Chloride 0.9% 1,000 ML IV SCH (20:33)
[2021-11-05 01:33] LABS: Anion Gap 14 mmol/L (10-20); BUN (Urea Nitrogen) Less than 4 mg/dL (7.0-18.7); Calc. Creatinine Clearance 111 mL/min (70-130); Carbon Dioxide 15 mmol/L (22-29); Chloride 110 mmol/L (98-107); Estimated GFR 121; Glucose 418 mg/dL (70-105); Sodium 135 mmol/L (136-145)
[2021-11-05] MEDS: Morphine 2 MG/ML VIAL SLOW IVP PRN ×2 (01:50→06:52)
[2021-11-05 05:05] LABS: Anion Gap 14 mmol/L (10-20); BUN (Urea Nitrogen) 6 mg/dL (7.0-18.7); Calc. Creatinine Clearance 117 mL/min (70-130); Calcium 8.6 mg/dL (7.8-10.44); Carbon Dioxide 16 mmol/L (22-29); Chloride 107 mmol/L (98-107); Estimated GFR 123; Glucose 545 mg/dL (70-105); Potassium 4.4 mmol/L (3.5-5.1); Sodium 133 mmol/L (136-145)
[2021-11-05 05:45] LABS: Hemoglobin 10.8 g/dL (12.0-16.0); Mean Corpuscular Hemoglobin 27.5 pg (27.0-31.0); Mean Corpuscular Volume 80.8 fL (78.0-98.0); Mean Platelet Volume 7.3 fL (7.4-10.4); Platelet Count 368 thou/uL (130-400); RBC Distribution Width 18.5 % (11.5-14.5); Red Blood Cell (RBC) Count 3.93 mill/uL (4.20-5.40)
[2021-11-05] MEDS: CEFAZOLIN 1 GM in Sodium Chloride 0.9% 100 ML IVPB SCH (06:52)
[2021-11-05] MEDS: HumaLOG 300 UNITS/3 ML VIAL SC PRN ×3 (06:53→20:10)
[2021-11-05] MEDS ORDERED: Dextrose 5% in Water 1,000 ML IV PRN (08:09)
[2021-11-05] MEDS ORDERED: Dextrose 50% Abboject 50 ML SYRINGE SLOW IVP PRN (08:09)
[2021-11-05] MEDS ORDERED: Triamcinolone 0.1% Cream 30 GM TUBE TOP PRN (08:28)
[2021-11-05] MEDS: Enoxaparin Sodium 40 MG/0.4 ML SYRINGE SC SCH ×2 (08:56→09:01)
[2021-11-05] MEDS: Sodium Chloride 0.9% 1,000 ML IV SCH ×3 (08:56→20:21)
[2021-11-05] MEDS: Insulin Glargine 30 UNITS/0.3 ML VIAL SC SCH ×2 (08:57→20:11)
[2021-11-05] MEDS: Fluconazole 100 MG TAB PO SCH (08:57)
[2021-11-05] MEDS ORDERED: Hydrocortisone Valerate 0.2% Cream 60 gm Tube TOP SCH (09:00)
[2021-11-05 10:06] LABS: Albumin 2.6 g/dL (3.5-5.0)
[2021-11-05 10:09] LABS: Protein, Total 6.4 g/dL (6.0-8.3)
[2021-11-05 10:10] LABS: Bilirubin, Total 0.2 mg/dL (0.2-1.2)
[2021-11-05 10:11] LABS: Alkaline Phosphatase 131 U/L (40-110)
[2021-11-05 10:14] LABS: ALT (SGPT) 9 U/L (8-55); AST (SGOT) 17 U/L (5-34); Bilirubin, Direct Less than 0.1 mg/dL (0.1-0.3)
[2021-11-05] MEDS: Metoclopramide 10 MG/10 ML UDCUP PO SCH ×3 (11:02→20:12)
[2021-11-06] MEDS: Sodium Chloride 0.9% 1,000 ML IV SCH ×2 (04:30→17:01)
[2021-11-06] MEDS: HumaLOG 300 UNITS/3 ML VIAL SC PRN ×4 (06:47→20:38)
[2021-11-06] MEDS: Enoxaparin Sodium 40 MG/0.4 ML SYRINGE SC SCH (08:26)
[2021-11-06] MEDS: Insulin Glargine 30 UNITS/0.3 ML VIAL SC SCH ×2 (08:27→20:37)
[2021-11-06] MEDS: Fluconazole 100 MG TAB PO SCH (08:27)
[2021-11-06] MEDS: Metoclopramide 10 MG/10 ML UDCUP PO SCH ×4 (08:27→20:33)
[2021-11-06] MEDS ORDERED: Insulin Glargine 30 UNITS/0.3 ML VIAL SC SCH ×2 (09:00)
[2021-11-06] MEDS: Ketorolac Tromethamine 30 MG/ML VIAL IVP PRN (09:57)
[2021-11-06] MEDS ORDERED: Senokot S 8.6-50 MG TAB PO PRN (10:15)
[2021-11-07] MEDS: Ketorolac Tromethamine 30 MG/ML VIAL IVP PRN (04:27)
[2021-11-07] MEDS: Sodium Chloride 0.9% 1,000 ML IV SCH (04:28)
[2021-11-07] MEDS: HumaLOG 300 UNITS/3 ML VIAL SC PRN ×2 (05:38→11:58)
[2021-11-07 06:17] LABS: ALT (SGPT) 10 U/L (8-55); AST (SGOT) 13 U/L (5-34); Albumin 2.9 g/dL (3.5-5.0); Alkaline Phosphatase 102 U/L (40-110); Anion Gap 11 mmol/L (10-20); BUN (Urea Nitrogen) 11 mg/dL (7.0-18.7); Bilirubin, Total 0.3 mg/dL (0.2-1.2); Calc. Creatinine Clearance 114 mL/min (70-130); Calcium 8.9 mg/dL (7.8-10.44); Carbon Dioxide 25 mmol/L (22-29); Chloride 105 mmol/L (98-107); Estimated GFR 122; Globulin 3.4 g/dL (2.4-3.5); Glucose 263 mg/dL (70-105); Magnesium 1.6 mg/dL (1.6-2.6); Potassium 3.4 mmol/L (3.5-5.1); Protein, Total 6.3 g/dL (6.0-8.3); Sodium 138 mmol/L (136-145)
[2021-11-07] MEDS: Metoclopramide 10 MG/10 ML UDCUP PO SCH ×2 (06:36→11:58)
[2021-11-07] MEDS ORDERED: Potassium Chloride 20 MEQ TAB PO SCH (08:00)
[2021-11-07] MEDS ORDERED: Magnesium 2 GM/50 ML(in water) 2 GM in Premix Bag 1 BAG IVPB SCH (08:00)
[2021-11-07 08:21] LABS: #Eosinphils 0.1 thou/uL (0.0-0.7); #Lymphocytes 1.5 thou/uL (1.20-3.40); #Monocytes 0.3 thou/uL (0.11-0.59); #Neutrophils 2.2 thou/uL (1.40-6.50); %Basophils 0.7 % (0.0-1.0); %Neutrophils 53.4 % (42.0-75.0); Hemoglobin 9.7 g/dL (12.0-16.0); Mean Corpuscular HGB CONC 31.1 g/dL (32.0-36.0); Mean Corpuscular Hemoglobin 25.2 pg (27.0-31.0); Mean Corpuscular Volume 80.9 fL (78.0-98.0); Mean Platelet Volume 7.2 fL (7.4-10.4); Platelet Count 293 thou/uL (130-400); RBC Distribution Width 17.5 % (11.5-14.5); Red Blood Cell (RBC) Count 3.83 mill/uL (4.20-5.40); White Blood Cell (WBC) Count 4.1 thou/uL (4.8-10.8)
[2021-11-07] MEDS: Enoxaparin Sodium 40 MG/0.4 ML SYRINGE SC SCH (08:35)
[2021-11-07] MEDS: Fluconazole 100 MG TAB PO SCH (08:36)
[2021-11-07 08:41] VITALS: BP 108/74; TEMP 98.2
[2021-11-07] MEDS ORDERED: Insulin Glargine 30 UNITS/0.3 ML VIAL SC SCH ×2 (09:00→21:00)
== END 2021-11-07 13:05 | disposition home or self-care (01) | DRG 638 ==
LOC: ERS 13:59 → IMCU/EMU 16:45 → MSONC 11-05 12:35
PROVIDERS: ADMIT Internal Medicine; ATTEND Internal Medicine
DX: E10.10 Type 1 diabetes mellitus with ketoacidosis without coma (principal); B37.49 Other urogenital candidiasis; L03.312 Cellulitis of back [any part except buttock and flank]; D64.9 Anemia, unspecified; F41.9 Anxiety disorder, unspecified; F32.A Depression, unspecified; E87.6 Hypokalemia; T38.3X6A Underdosing of insulin and oral hypoglycemic [antidiabetic] drugs, initial encounter; R11.0 Nausea; L29.9 Pruritus, unspecified; Z20.822 Contact with and (suspected) exposure to COVID-19; Z91.128 Patient's intentional underdosing of medication regimen for other reason; Z87.891 Personal history of nicotine dependence; Z79.4 Long term (current) use of insulin; Z98.890 Other specified postprocedural states; Z91.51 Personal history of suicidal behavior
CPT/HCPCS: 36415; 36416; 80048; 80053; 80076; 81003; 81015; 82010; 82805; 83036; 83735; 84100; 84484; 84703; 85025; 85027; 87086; 96361; 96365; 96375; 96376; A4217; J0610; J0690; J1650; J1815; J1885; J2270; J2405; J3010; J3475; J3480; J3490; J7050; S0028; U0002

== ENCOUNTER 2021-11-19 05:34 | Inpatient (IN) | payer SELFPAY ==
[2021-11-19] MEDS ORDERED: Ondansetron PF 4 MG/2 ML Vial ONE (06:06)
[2021-11-19] MEDS ORDERED: Ketorolac Tromethamine 30 MG/ML VIAL ONE (06:06)
[2021-11-19] MEDS ORDERED: INSULIN REGULAR IN 0.9 % NACL 100 UNIT/100 ML BAG ONE ×2 (06:18→06:19)
[2021-11-19 06:23] LABS: BHCG - Serum Negative (NEGATIVE); Pregs Control Background? CLEAR/WHITE (CLR/WHITE); Pregs Control Bar Appear? YES (CONTROL BAR)
[2021-11-19 06:24] LABS: #Basophils 0.1 thou/uL (0.0-0.2); #Lymphocytes 1.5 thou/uL (1.20-3.40); #Monocytes 0.2 thou/uL (0.11-0.59); #Neutrophils 8.3 thou/uL (1.40-6.50); %Basophils 0.8 % (0.0-1.0); %Eosinophils 0.4 % (0.0-10.0); %Lymphocytes 14.8 % (21.0-51.0); %Monocytes 2.2 % (0.0-10.0); %Neutrophils 81.7 % (42.0-75.0); Hemoglobin 13.3 g/dL (12.0-16.0); Mean Corpuscular HGB CONC 29.9 g/dL (32.0-36.0); Mean Corpuscular Hemoglobin 24.7 pg (27.0-31.0); Mean Corpuscular Volume 82.6 fL (78.0-98.0); Mean Platelet Volume 8.6 fL (7.4-10.4); Platelet Count 269 thou/uL (130-400); RBC Distribution Width 18.3 % (11.5-14.5); White Blood Cell (WBC) Count 10.1 thou/uL (4.8-10.8)
[2021-11-19 06:42] LABS: ALT (SGPT) 15 U/L (8-55); AST (SGOT) 33 U/L (5-34); Albumin 4.7 g/dL (3.5-5.0); Alkaline Phosphatase 145 U/L (40-110); BUN (Urea Nitrogen) 4 mg/dL (7.0-18.7); Bilirubin, Total 0.3 mg/dL (0.2-1.2); Calc. Creatinine Clearance 0 mL/min (70-130); Carbon Dioxide Less than 8 mmol/L (22-29); Chloride 110 mmol/L (98-107); Estimated GFR 69; Globulin 5.5 g/dL (2.4-3.5); Glucose 444 mg/dL (70-105); Lipase 110 U/L (8-78); Potassium 4.2 mmol/L (3.5-5.1); Protein, Total 10.2 g/dL (6.0-8.3); Sodium 138 mmol/L (136-145)
[2021-11-19 07:46] LABS: Bilirubin Negative (Negative); Blood, Urine Trace (Negative); Clarity Clear (Clear); Glucose, Urine (Dipstick) Greater than 1000 mg/dL (Negative); Ketone, Urine 100 mg/dL (Negative); Leukocyte 25 Leu/uL (Negative); Nitrite Negative (Negative); Protein, Urine (Dipstick) 70 mg/dL (Neg-Trace); RBC/HPF 0-3 HPF (0-3); Specific Gravity, Urine 1.023 (1.002-1.036); Urobilinogen Normal mg/dL (Less than 2); WBC/HPF 0-3 HPF (0-3); pH, Urine 5.5 (5.0-9.0)
[2021-11-19 07:48] LABS: Bacteria/HPF 1+ HPF (None Seen)
[2021-11-19] MEDS ORDERED: Potassium Chloride 20 MEQ/100 ML PREMIX BAG ONE (07:57)
[2021-11-19] MEDS ORDERED: NS 0.9% w/ 20 MEQ KCL 1,000 ML ONE (07:58)
[2021-11-19 08:21] LABS: SARS-CoV-2 NAA Rapid Test Not Detected (NotDetected)
[2021-11-19] MEDS ORDERED: Ondansetron ODT 4 MG TAB PO PRN (08:33)
[2021-11-19] MEDS ORDERED: NS 0.9% w/ 20 MEQ KCL 1,000 ML IV PRN ×2 (08:33)
[2021-11-19] MEDS ORDERED: HUMULIN R 100 UNITS in Sodium Chloride 0.9% 100 ML IVPB SCH (08:33)
[2021-11-19] MEDS ORDERED: Ondansetron PF 4 MG/2 ML Vial IVP PRN (08:33)
[2021-11-19] MEDS ORDERED: Acetaminophen 500 MG TAB PO PRN (08:33)
[2021-11-19] MEDS ORDERED: Sodium Chloride 0.9% 1,000 ML IV PRN ×4 (08:33)
[2021-11-19] MEDS ORDERED: Electrolyte Replacement Protocol 1 EACH IVPB SCH (08:33)
[2021-11-19] MEDS ORDERED: Dextrose 5 %-0.45 % NaCl 1,000 ML IV PRN (08:33)
[2021-11-19] MEDS ORDERED: D5 1/2 NS w/20 mEq KCL 1,000 ML ONE (09:19)
[2021-11-19] MEDS: D5 1/2 NS w/20 mEq KCL 1,000 ML IV PRN ×2 (09:20→20:20)
[2021-11-19 09:27] LABS: Amphetamine Not Detected (NotDetected); Barbiturates Screen Not Detected (NotDetected); Benzodiazepine Screen Not Detected (NotDetected); Cocaine Metabolite Screen Not Detected (NotDetected); Methadone Not Detected (NotDetected); Methamphetamine Not Detected (NotDetected); Opiate Screen Not Detected (NotDetected); Oxycodone Screen Not Detected (NotDetected); Phencyclidine (PCP) Not Detected (NotDetected); THC/Cannabinoid Screen Not Detected (NotDetected); Tricyclic Screen Not Detected (NotDetected)
[2021-11-19 09:29] LABS: Lactic Acid 3.1 mmol/L (0.5-2.2)
[2021-11-19 09:39] LABS: Chloride 115 mmol/L (98-107); Potassium 3.3 mmol/L (3.5-5.1)
[2021-11-19 09:40] LABS: Calcium 8.6 mg/dL (7.8-10.44); Glucose 288 mg/dL (70-105); Sodium 140 mmol/L (136-145)
[2021-11-19 09:44] LABS: Calc. Creatinine Clearance 0 mL/min (70-130); Estimated GFR 96
[2021-11-19 09:45] LABS: BUN (Urea Nitrogen) 4 mg/dL (7.0-18.7)
[2021-11-19 09:53] LABS: Carbon Dioxide Less than 8 mmol/L (22-29)
[2021-11-19] MEDS: Potassium Chloride 20 MEQ in Premix Bag 1 BAG IVPB SCH ×2 (10:48→15:33)
[2021-11-19 13:02] LABS: Base Excess -14.8 mEq/L (-2.0 to +3.0); Chloride (VBG) 114 mmol/L (98-106); Hemoglobin (Hb) 11.4 g/dL (11.7-15.5); Potassium (VBG) 3.87 mmol/L (3.70-5.30); pH (venous) 7.31 (7.32-7.43)
[2021-11-19 13:09] LABS: Actual Bicarbonate (HCO3v) 9 mEq/L (22-28)
[2021-11-19] MEDS: Famotidine/PF 20 mg/2ml Vial SLOW IVP SCH ×2 (13:13→20:19)
[2021-11-19 13:41] LABS: BUN (Urea Nitrogen) 4 mg/dL (7.0-18.7); Calc. Creatinine Clearance 0 mL/min (70-130); Chloride 115 mmol/L (98-107); Estimated GFR 98; Glucose 179 mg/dL (70-105); Potassium 3.9 mmol/L (3.5-5.1); Sodium 137 mmol/L (136-145)
[2021-11-19 13:51] LABS: Carbon Dioxide Less than 8 mmol/L (22-29)
[2021-11-19] MEDS ORDERED: Sodium Bicarbonate 150 MEQ in Dextrose 5% in Water 1,000 ML IV SCH (15:00)
[2021-11-19 16:45] VITALS: BMI 21.7
[2021-11-19 17:17] LABS: Anion Gap 17 mmol/L (10-20); BUN (Urea Nitrogen) 4 mg/dL (7.0-18.7); Calc. Creatinine Clearance 85 mL/min (70-130); Calcium 7.9 mg/dL (7.8-10.44); Carbon Dioxide 10 mmol/L (22-29); Chloride 113 mmol/L (98-107); Estimated GFR 96; Glucose 146 mg/dL (70-105); Potassium 3.8 mmol/L (3.5-5.1); Sodium 136 mmol/L (136-145)
[2021-11-20] MEDS: D5 1/2 NS w/20 mEq KCL 1,000 ML IV PRN ×2 (00:31→04:51)
[2021-11-20 04:40] LABS: #Eosinphils 0.1 thou/uL (0.0-0.7); #Lymphocytes 1.5 thou/uL (1.20-3.40); #Monocytes 0.3 thou/uL (0.11-0.59); #Neutrophils 4.2 thou/uL (1.40-6.50); %Basophils 0.4 % (0.0-1.0); %Eosinophils 2.3 % (0.0-10.0); %Lymphocytes 24.5 % (21.0-51.0); %Monocytes 4.6 % (0.0-10.0); %Neutrophils 68.2 % (42.0-75.0); Hemoglobin 9.1 g/dL (12.0-16.0); Mean Corpuscular HGB CONC 31.5 g/dL (32.0-36.0); Mean Corpuscular Hemoglobin 25.6 pg (27.0-31.0); Mean Corpuscular Volume 81.2 fL (78.0-98.0); Mean Platelet Volume 8.1 fL (7.4-10.4); Platelet Count 149 thou/uL (130-400); RBC Distribution Width 17.4 % (11.5-14.5); Red Blood Cell (RBC) Count 3.54 mill/uL (4.20-5.40); White Blood Cell (WBC) Count 6.1 thou/uL (4.8-10.8)
[2021-11-20 04:42] LABS: Anion Gap 9 mmol/L (10-20); BUN (Urea Nitrogen) 5 mg/dL (7.0-18.7); Calc. Creatinine Clearance 111 mL/min (70-130); Calcium 7.9 mg/dL (7.8-10.44); Carbon Dioxide 22 mmol/L (22-29); Chloride 110 mmol/L (98-107); Estimated GFR 124; Glucose 124 mg/dL (70-105); Sodium 138 mmol/L (136-145)
[2021-11-20 04:52] LABS: Potassium 2.9 mmol/L (3.5-5.1)
[2021-11-20] MEDS: Potassium Chloride 20 MEQ TAB PO SCH ×2 (05:27→09:42)
[2021-11-20] MEDS ORDERED: Dextrose 50% Abboject 50 ML SYRINGE IVP PRN (08:30)
[2021-11-20] MEDS ORDERED: Dextrose 5% in Water 1,000 ML IV PRN (08:30)
[2021-11-20] MEDS ORDERED: HumaLOG 300 UNITS/3 ML VIAL SC PRN (08:30)
[2021-11-20] MEDS ORDERED: FLU VACC QS2022-23(6MOS UP)/PF 60 MCG/0.5 ML SYRINGE IM ONE (09:00)
[2021-11-20] MEDS ORDERED: Insulin Glargine 30 UNITS/0.3 ML VIAL SC SCH ×2 (09:00→21:00)
[2021-11-20] MEDS ORDERED: Prevnar 13-Val Conj/PF 0.5 ML SYRINGE IM ONE (09:00)
[2021-11-20] MEDS: Famotidine/PF 20 mg/2ml Vial SLOW IVP SCH (09:42)
[2021-11-20 12:11] LABS: Anion Gap 8 mmol/L (10-20); BUN (Urea Nitrogen) Less than 4 mg/dL (7.0-18.7); Calc. Creatinine Clearance 124 mL/min (70-130); Calcium 8.3 mg/dL (7.8-10.44); Carbon Dioxide 23 mmol/L (22-29); Chloride 110 mmol/L (98-107); Estimated GFR 127; Glucose 216 mg/dL (70-105); Potassium 3.6 mmol/L (3.5-5.1); Sodium 137 mmol/L (136-145)
[2021-11-20] MEDS ORDERED: Potassium Chloride 20 MEQ TAB PO SCH (12:30)
[2021-11-20 15:55] VITALS: TEMP 97.2
== END 2021-11-20 17:51 | disposition home or self-care (01) | DRG 638 ==
LOC: ERS 05:34 → ERHOLD 07:32 → IMCU/EMU 11:54
PROVIDERS: ADMIT Internal Medicine; ATTEND Internal Medicine
DX: E10.10 Type 1 diabetes mellitus with ketoacidosis without coma (principal); N17.9 Acute kidney failure, unspecified; F10.129 Alcohol abuse with intoxication, unspecified; F41.9 Anxiety disorder, unspecified; F32.A Depression, unspecified; E87.6 Hypokalemia; Z20.822 Contact with and (suspected) exposure to COVID-19; Z91.14 Patient's other noncompliance with medication regimen
CPT/HCPCS: 36415; 36416; 71045; 80048; 80053; 80306; 80307; 81003; 81015; 82010; 82805; 83605; 83690; 84484; 84703; 85025; 93005; 96374; 96375; J1815; J1885; J2405; J3480; J3490; J7070; S0028; U0002

== ENCOUNTER 2021-11-30 20:18 | Inpatient (IN) | payer SELFPAY ==
[2021-11-30] MEDS ORDERED: Ondansetron PF 4 MG/2 ML Vial ONE (20:50)
[2021-11-30 21:15] LABS: Analyzer IN Cardio ER; Base Excess -22.9 mEq/L (-2.0 to +3.0); Calcium, Ionized (venous) 1.26 mmol/L (1.16-1.32); Chloride (VBG) 105 mmol/L (98-106); Hemoglobin (Hb) 14.1 g/dL (11.7-15.5); Potassium (VBG) 4.66 mmol/L (3.70-5.30); Sodium 139.5 mmol/L (133-146)
[2021-11-30] MEDS ORDERED: Prochlorperazine 10 MG/2 ML VIAL ONE (21:17)
[2021-11-30] MEDS ORDERED: Ketorolac Tromethamine 30 MG/ML VIAL ONE (21:17)
[2021-11-30] MEDS ORDERED: INSULIN REGULAR IN 0.9 % NACL 100 UNIT/100 ML BAG ONE (21:22)
[2021-11-30 21:24] LABS: Actual Bicarbonate (HCO3v) 7 mEq/L (22-28); pH (venous) 7.03 (7.32-7.43)
[2021-11-30 21:36] LABS: BHCG - Serum Negative (NEGATIVE); Pregs Control Background? CLEAR/WHITE (CLR/WHITE); Pregs Control Bar Appear? YES (CONTROL BAR)
[2021-11-30 22:16] LABS: Albumin 4.9 g/dL (3.5-5.0)
[2021-11-30 22:17] LABS: Chloride 102 mmol/L (98-107); Potassium 4.7 mmol/L (3.5-5.1); Sodium 132 mmol/L (136-145)
[2021-11-30 22:18] LABS: Calcium 9.3 mg/dL (7.8-10.44)
[2021-11-30 22:19] LABS: Globulin 5.5 g/dL (2.4-3.5); Glucose 432 mg/dL (70-105); Protein, Total 10.4 g/dL (6.0-8.3)
[2021-11-30 22:20] LABS: Bilirubin, Total 0.2 mg/dL (0.2-1.2)
[2021-11-30 22:21] LABS: Alkaline Phosphatase 234 U/L (40-110)
[2021-11-30 22:22] LABS: Calc. Creatinine Clearance 0 mL/min (70-130); Estimated GFR 53
[2021-11-30 22:23] LABS: BUN (Urea Nitrogen) 9 mg/dL (7.0-18.7)
[2021-11-30 22:24] LABS: ALT (SGPT) 12 U/L (8-55); AST (SGOT) 14 U/L (5-34); Magnesium 2.4 mg/dL (1.6-2.6)
[2021-11-30 22:30] LABS: Bilirubin Negative (Negative); Blood, Urine 2+ (Negative); Clarity Turbid (Clear); Glucose, Urine (Dipstick) Greater than 1000 mg/dL (Negative); Ketone, Urine Greater than 150 mg/dL (Negative); Leukocyte 500 Leu/uL (Negative); Nitrite Negative (Negative); Protein, Urine (Dipstick) 100 mg/dL (Neg-Trace); Specific Gravity, Urine 1.028 (1.002-1.036); Urobilinogen Normal mg/dL (Less than 2); pH, Urine 5.5 (5.0-9.0)
[2021-11-30 22:32] LABS: #Basophils 0.1 thou/uL (0.0-0.2); #Eosinphils 0.1 thou/uL (0.0-0.7); #Lymphocytes 3.3 thou/uL (1.20-3.40); #Monocytes 0.8 thou/uL (0.11-0.59); #Neutrophils 12.8 thou/uL (1.40-6.50); %Basophils 0.6 % (0.0-1.0); %Eosinophils 0.7 % (0.0-10.0); %Lymphocytes 19.3 % (21.0-51.0); %Monocytes 4.4 % (0.0-10.0); Mean Corpuscular HGB CONC 38.3 g/dL (32.0-36.0); Mean Corpuscular Volume 81.1 fL (78.0-98.0); Mean Platelet Volume 7.4 fL (7.4-10.4); Platelet Count 282 thou/uL (130-400); RBC Distribution Width 16.9 % (11.5-14.5); Red Blood Cell (RBC) Count 3.88 mill/uL (4.20-5.40); White Blood Cell (WBC) Count 17.1 thou/uL (4.8-10.8)
[2021-11-30 22:45] LABS: Bacteria/HPF 3+ HPF (None Seen); Yeast-Budding 1+ HPF (None Seen)
[2021-11-30 22:51] LABS: Carbon Dioxide Less than 8 mmol/L (22-29)
[2021-11-30] MEDS ORDERED: NS 0.9% w/ 20 MEQ KCL 1,000 ML ONE (22:58)
[2021-11-30] MEDS ORDERED: Piperacillin/Tazobactam 4.5 GM VIAL ONE (23:09)
[2021-11-30 23:21] LABS: SARS-CoV-2 NAA Rapid Test Not Detected (NotDetected)
[2021-11-30] MEDS ORDERED: Acetaminophen 650 MG Suppository PR PRN (23:34)
[2021-11-30] MEDS ORDERED: Ondansetron PF 4 MG/2 ML Vial IVP PRN (23:34)
[2021-11-30] MEDS ORDERED: Electrolyte Replacement Protocol 1 EACH IVPB PRN (23:34)
[2021-11-30] MEDS ORDERED: NS 0.9% w/ 20 MEQ KCL 1,000 ML IV PRN ×2 (23:34)
[2021-11-30] MEDS ORDERED: Sodium Chloride 0.9% 1,000 ML IV PRN ×2 (23:34)
[2021-11-30] MEDS ORDERED: Ondansetron ODT 4 MG TAB PO PRN (23:34)
[2021-11-30] MEDS ORDERED: Dextrose 5 %-0.45 % NaCl 1,000 ML IV PRN (23:34)
[2021-11-30 23:47] LABS: Phosphorus 4.1 mg/dL (2.3-4.7)
[2021-12-01 00:25] VITALS: BMI 23.8
[2021-12-01] MEDS ORDERED: Pantoprazole 40 MG VIAL IVP SCH (00:30)
[2021-12-01] MEDS: Morphine 4 MG/ML VIAL SLOW IVP PRN ×3 (00:33→07:33)
[2021-12-01] MEDS: D5 1/2 NS w/20 mEq KCL 1,000 ML IV PRN ×2 (01:09→04:45)
[2021-12-01] MEDS: Acetaminophen 325 MG TAB PO PRN (01:16)
[2021-12-01 01:27] LABS: BUN (Urea Nitrogen) 9 mg/dL (7.0-18.7); Calc. Creatinine Clearance 74 mL/min (70-130); Calcium 8.7 mg/dL (7.8-10.44); Chloride 111 mmol/L (98-107); Estimated GFR 74; Glucose 226 mg/dL (70-105); Potassium 4.2 mmol/L (3.5-5.1); Sodium 136 mmol/L (136-145)
[2021-12-01 01:28] LABS: Carbon Dioxide Less than 8 mmol/L (22-29)
[2021-12-01 02:23] LABS: Actual Bicarbonate (HCO3a) 5.4 mEq/L (22-28); Base Excess (BEa) -22.1 mEq/L (-2.0 to +3.0); Calcium, Ionized (arterial) 1.27 mmol/L (1.12-1.30); Carboxyhemoglobin (COHb) 0.6 gm% (0.0-3.0); Hemoglobin (Hb) 11.2 g/dL (12.0-16.0); O2 Tension (PaO2), arterial 111.8 mmHg (80.0-100.0); Potassium - ABG Lab 4.37 mmol/L (3.70-5.30)
[2021-12-01 02:28] LABS: pH, Arterial 7.11 (7.35-7.45)
[2021-12-01 02:29] LABS: CO2 Tension 17.2 mmHg (35.0-45.0); Puncture Site LBA
[2021-12-01] MEDS ORDERED: Sodium Bicarb 50 MEQ/50 ML VIAL IVP SCH (02:45)
[2021-12-01 06:55] LABS: Hemoglobin 12.1 g/dL (12.0-16.0); Mean Corpuscular HGB CONC 31.8 g/dL (32.0-36.0); Mean Corpuscular Hemoglobin 26.5 pg (27.0-31.0); Mean Corpuscular Volume 83.3 fL (78.0-98.0); Mean Platelet Volume 7.9 fL (7.4-10.4); Platelet Count 322 thou/uL (130-400); RBC Distribution Width 17.5 % (11.5-14.5); Red Blood Cell (RBC) Count 4.57 mill/uL (4.20-5.40); White Blood Cell (WBC) Count 19.6 thou/uL (4.8-10.8)
[2021-12-01] MEDS: Pantoprazole 40 MG VIAL IVP SCH (07:31)
[2021-12-01] MEDS: Enoxaparin Sodium 40 MG/0.4 ML SYRINGE SC SCH (07:31)
[2021-12-01 08:12] LABS: Chloride 111 mmol/L (98-107); Sodium 136 mmol/L (136-145)
[2021-12-01 08:13] LABS: Glucose 220 mg/dL (70-105)
[2021-12-01 08:14] LABS: Band 22 % (5-11); Lymphocytes 8 % (21-51); MDiff Complete? YES; Monocytes 1 % (0-10); Neutrophil 69 % (42-75); Platelet Morphology Comment Appears Adequate; Polychromasia SLIGHT = 2-3 cells (100X) (0-2/hpf)
[2021-12-01 08:17] LABS: BUN (Urea Nitrogen) 7 mg/dL (7.0-18.7); Calc. Creatinine Clearance 76 mL/min (70-130); Estimated GFR 76
[2021-12-01 08:24] LABS: Carbon Dioxide Less than 8 mmol/L (22-29)
[2021-12-01 08:25] LABS: Calcium 8.3 mg/dL (7.8-10.44)
[2021-12-01] MEDS ORDERED: Iopamidol-370 76% 500 ML 1 ML ONE (10:41)
[2021-12-01] MEDS ORDERED: Morphine 4 MG/ML VIAL SLOW IVP SCH ×2 (11:15→12:15)
[2021-12-01 11:43] LABS: ALT (SGPT) 8 U/L (8-55); AST (SGOT) 14 U/L (5-34); Albumin 3.7 g/dL (3.5-5.0); Alkaline Phosphatase 133 U/L (40-110); BUN (Urea Nitrogen) Less than 4 mg/dL (7.0-18.7); Bilirubin, Total 0.2 mg/dL (0.2-1.2); Calc. Creatinine Clearance 76 mL/min (70-130); Calcium 7.9 mg/dL (7.8-10.44); Chloride 107 mmol/L (98-107); Estimated GFR 76; Globulin 4.9 g/dL (2.4-3.5); Glucose 234 mg/dL (70-105); Potassium 3.1 mmol/L (3.5-5.1); Protein, Total 8.6 g/dL (6.0-8.3); Sodium 131 mmol/L (136-145)
[2021-12-01 11:56] LABS: Carbon Dioxide Less than 8 mmol/L (22-29)
[2021-12-01] MEDS ORDERED: Naloxone HCl 0.4 mg/ml Vial IV PRN (12:15)
[2021-12-01] MEDS ORDERED: diphenhydrAMINE 25 MG CAP PO PRN (12:15)
[2021-12-01] MEDS ORDERED: HYDROmorphone/PF 10 MG in Sodium Chloride 0.9% 99 ML IVPB PRN (12:15)
[2021-12-01] MEDS ORDERED: Promethazine HCl 25 MG/ML VIAL IM PRN (12:15)
[2021-12-01] MEDS ORDERED: diphenhydrAMINE 50 MG/ML VIAL IM/IV PRN (12:15)
[2021-12-01] MEDS ORDERED: Zolpidem Tartrate 5 MG TAB PO PRN (12:15)
[2021-12-01 12:58] LABS: Lipase 7857 U/L (8-78)
[2021-12-01] MEDS: Potassium Chloride 20 MEQ in Premix Bag 1 BAG IVPB SCH ×2 (15:03→15:25)
[2021-12-01 15:37] LABS: BUN (Urea Nitrogen) Less than 4 mg/dL (7.0-18.7); Calc. Creatinine Clearance 89 mL/min (70-130); Calcium 7.1 mg/dL (7.8-10.44); Chloride 113 mmol/L (98-107); Estimated GFR 92; Glucose 289 mg/dL (70-105); Potassium 3.5 mmol/L (3.5-5.1); Sodium 133 mmol/L (136-145)
[2021-12-01 15:41] LABS: Carbon Dioxide Less than 8 mmol/L (22-29)
[2021-12-01] MEDS ORDERED: Sodium Chloride 0.9% 1,000 ML IV SCH (16:00)
[2021-12-01] MEDS ORDERED: Sodium Bicarbonate 150 MEQ in Dextrose 5% in Water 1,000 ML IV SCH (18:00)
[2021-12-01] MEDS: cefTRIAXone\\ROCEPHIN 1 GM in Sodium Chloride 0.9% 100 ML IVPB SCH (18:05)
[2021-12-01 20:58] LABS: Anion Gap 13 mmol/L (10-20); BUN (Urea Nitrogen) Less than 4 mg/dL (7.0-18.7); Calc. Creatinine Clearance 102 mL/min (70-130); Calcium 6.4 mg/dL (7.8-10.44); Carbon Dioxide 8 mmol/L (22-29); Chloride 116 mmol/L (98-107); Estimated GFR 108; Glucose 218 mg/dL (70-105); Sodium 133 mmol/L (136-145)
[2021-12-01] MEDS: Ondansetron PF 4 MG/2 ML Vial IVP PRN (21:07)
[2021-12-01] MEDS: HUMULIN R 100 UNITS in Sodium Chloride 0.9% 100 ML IVPB SCH (21:42)
[2021-12-01 23:05] LABS: Anion Gap 14 mmol/L (10-20); BUN (Urea Nitrogen) Less than 4 mg/dL (7.0-18.7); Calc. Creatinine Clearance 109 mL/min (70-130); Calcium 6.5 mg/dL (7.8-10.44); Carbon Dioxide 10 mmol/L (22-29); Chloride 116 mmol/L (98-107); Estimated GFR 117; Glucose 249 mg/dL (70-105); Potassium 3.8 mmol/L (3.5-5.1); Sodium 136 mmol/L (136-145)
[2021-12-02 03:40] LABS: Base Excess -9.5 mEq/L (-2.0 to +3.0); Calcium, Ionized (venous) 0.77 mmol/L (1.16-1.32); Chloride (VBG) 112 mmol/L (98-106); Potassium (VBG) 3.99 mmol/L (3.70-5.30); Sodium 131.6 mmol/L (133-146); pH (venous) 7.44 (7.32-7.43)
[2021-12-02 04:01] LABS: Actual Bicarbonate (HCO3v) 12 mEq/L (22-28)
[2021-12-02 04:09] LABS: Anion Gap 12 mmol/L (10-20); BUN (Urea Nitrogen) Less than 4 mg/dL (7.0-18.7); Calc. Creatinine Clearance 129 mL/min (70-130); Calcium 6.3 mg/dL (7.8-10.44); Carbon Dioxide 12 mmol/L (22-29); Chloride 112 mmol/L (98-107); Estimated GFR 126; Glucose 164 mg/dL (70-105); Potassium 3.6 mmol/L (3.5-5.1); Sodium 132 mmol/L (136-145)
[2021-12-02] MEDS: HUMULIN R 100 UNITS in Sodium Chloride 0.9% 100 ML IVPB SCH ×2 (04:14→21:00)
[2021-12-02] MEDS: Ondansetron PF 4 MG/2 ML Vial IVP PRN (04:36)
[2021-12-02] MEDS ORDERED: Sodium Bicarbonate 150 MEQ in Dextrose 5% in Water 1,000 ML IV SCH (05:00)
[2021-12-02 06:12] LABS: Hemoglobin 12.8 g/dL (12.0-16.0); Mean Corpuscular HGB CONC 31.5 g/dL (32.0-36.0); Mean Corpuscular Hemoglobin 25.8 pg (27.0-31.0); Mean Corpuscular Volume 81.9 fL (78.0-98.0); Mean Platelet Volume 7.6 fL (7.4-10.4); Platelet Count 272 thou/uL (130-400); RBC Distribution Width 17.5 % (11.5-14.5); Red Blood Cell (RBC) Count 4.95 mill/uL (4.20-5.40); White Blood Cell (WBC) Count 8.1 thou/uL (4.8-10.8)
[2021-12-02 06:13] LABS: #Eosinphils 0.1 thou/uL (0.0-0.7); #Lymphocytes 1.2 thou/uL (1.20-3.40); #Monocytes 0.3 thou/uL (0.11-0.59); #Neutrophils 6.5 thou/uL (1.40-6.50); %Basophils 0.4 % (0.0-1.0); %Eosinophils 0.7 % (0.0-10.0); %Lymphocytes 14.8 % (21.0-51.0); %Monocytes 3.9 % (0.0-10.0); %Neutrophils 80.2 % (42.0-75.0)
[2021-12-02] MEDS: D5 1/2 NS w/20 mEq KCL 1,000 ML IV PRN ×4 (07:44→21:05)
[2021-12-02] MEDS ORDERED: Metoclopramide HCl 10 MG/2 ML VIAL IVP PRN (07:50)
[2021-12-02] MEDS ORDERED: Metoclopramide HCl 10 MG/2 ML VIAL IVP SCH (08:15)
[2021-12-02] MEDS ORDERED: CALCIUM GLUC 1GM/NS 50ML 1 GM in Premix Bag 1 BAG IVPB SCH (08:30)
[2021-12-02] MEDS: Enoxaparin Sodium 40 MG/0.4 ML SYRINGE SC SCH (08:40)
[2021-12-02] MEDS: Pantoprazole 40 MG VIAL IVP SCH (08:40)
[2021-12-02] MEDS ORDERED: Phenylephrine 0.25% Nasal Spray 15 ML BOT ONE (09:13)
[2021-12-02] MEDS ORDERED: NOREPINEPHRINE 8 MG/250 ML-D5W 250 ML IVPB SCH (09:15)
[2021-12-02] MEDS ORDERED: Phenylephrine 40 MG in Sodium Chloride 0.9% 250 ML 250 ML IVPB SCH (09:15)
[2021-12-02 09:22] LABS: Lipase 2674 U/L (8-78)
[2021-12-02] MEDS: HYDROmorphone/PF 10 MG in Sodium Chloride 0.9% 99 ML IVPB PRN ×2 (09:28→09:32)
[2021-12-02 09:32] LABS: Magnesium 1.1 mg/dL (1.6-2.6)
[2021-12-02] MEDS: Phenylephrine 40 MG/NS 250 ML 40 MG in Premix Bag 1 BAG IVPB SCH ×2 (09:33→17:18)
[2021-12-02 09:38] LABS: Phosphorus Less than 1.0 mg/dL (2.3-4.7)
[2021-12-02] MEDS ORDERED: Potassium Phosphate 30 MMOL in Sodium Chloride 0.9% 250 ML 250 ML IVPB SCH (10:00)
[2021-12-02] MEDS ORDERED: Magnesium Sulfate In Water 4 GM in Premix Bag 1 BAG IVPB SCH (10:15)
[2021-12-02 10:20] LABS: Lactic Acid 1.2 mmol/L (0.5-2.2)
[2021-12-02] MEDS: Gemfibrozil 600 MG TAB PO SCH (17:18)
[2021-12-02] MEDS: cefTRIAXone\\ROCEPHIN 1 GM in Sodium Chloride 0.9% 100 ML IVPB SCH (17:22)
[2021-12-02] MEDS ORDERED: Dextrose 50% Abboject 50 ML SYRINGE SLOW IVP PRN (20:30)
[2021-12-03] MEDS: Ondansetron PF 4 MG/2 ML Vial IVP PRN (00:04)
[2021-12-03] MEDS: D5 1/2 NS w/20 mEq KCL 1,000 ML IV PRN ×2 (02:02→06:02)
[2021-12-03 04:39] LABS: #Eosinphils 0.2 thou/uL (0.0-0.7); #Lymphocytes 1.3 thou/uL (1.20-3.40); #Monocytes 0.3 thou/uL (0.11-0.59); #Neutrophils 7.4 thou/uL (1.40-6.50); %Basophils 0.5 % (0.0-1.0); %Eosinophils 2.3 % (0.0-10.0); %Lymphocytes 13.8 % (21.0-51.0); %Monocytes 2.8 % (0.0-10.0); %Neutrophils 80.6 % (42.0-75.0); Hemoglobin 9.9 g/dL (12.0-16.0); Mean Corpuscular HGB CONC 30.8 g/dL (32.0-36.0); Mean Corpuscular Hemoglobin 25.8 pg (27.0-31.0); Mean Corpuscular Volume 83.8 fL (78.0-98.0); Mean Platelet Volume 7.5 fL (7.4-10.4); Platelet Count 244 thou/uL (130-400); RBC Distribution Width 17.5 % (11.5-14.5); Red Blood Cell (RBC) Count 3.85 mill/uL (4.20-5.40); White Blood Cell (WBC) Count 9.2 thou/uL (4.8-10.8)
[2021-12-03 04:51] LABS: Anion Gap 11 mmol/L (10-20); BUN (Urea Nitrogen) Less than 4 mg/dL (7.0-18.7); Calc. Creatinine Clearance 153 mL/min (70-130); Calcium 6.7 mg/dL (7.8-10.44); Carbon Dioxide 15 mmol/L (22-29); Chloride 111 mmol/L (98-107); Estimated GFR 129; Glucose 164 mg/dL (70-105); Lipase 485 U/L (8-78); Potassium 3.9 mmol/L (3.5-5.1); Sodium 133 mmol/L (136-145)
[2021-12-03] MEDS ORDERED: Electrolyte Replacement Protocol 1 EACH FS ONE (07:48)
[2021-12-03] MEDS ORDERED: HumaLOG 300 UNITS/3 ML VIAL SC SCH (08:45)
[2021-12-03] MEDS ORDERED: Insulin Glargine 30 UNITS/0.3 ML VIAL SC SCH (08:45)
[2021-12-03 08:55] LABS: Magnesium 2.1 mg/dL (1.6-2.6)
[2021-12-03] MEDS ORDERED: Ergocalciferol 1.25 MG(50,000 UNITS) CAP PO SCH (09:00)
[2021-12-03 09:15] LABS: Phosphorus 1.4 mg/dL (2.3-4.7)
[2021-12-03] MEDS: Enoxaparin Sodium 40 MG/0.4 ML SYRINGE SC SCH ×2 (09:37→10:44)
[2021-12-03] MEDS: Gemfibrozil 600 MG TAB PO SCH ×2 (09:37→16:57)
[2021-12-03] MEDS: Insulin Glargine 30 UNITS/0.3 ML VIAL SC SCH (09:37)
[2021-12-03] MEDS: Pantoprazole 40 MG VIAL IVP SCH (09:41)
[2021-12-03 11:47] LABS: Calcium 7.3 mg/dL (7.8-10.44)
[2021-12-03] MEDS: PHOS-NAK 1 PKT PACK PO SCH ×3 (12:45→21:00)
[2021-12-03] MEDS ORDERED: Lactated Ringer's 1,000 ML IV SCH (15:30)
[2021-12-03] MEDS: cefTRIAXone\\ROCEPHIN 1 GM in Sodium Chloride 0.9% 100 ML IVPB SCH (16:59)
[2021-12-03] MEDS: Lactated Ringer's 1,000 ML IV SCH (18:26)
[2021-12-04] MEDS: PHOS-NAK 1 PKT PACK PO SCH ×5 (00:49→20:22)
[2021-12-04] MEDS: HumaLOG 300 UNITS/3 ML VIAL SC PRN ×4 (00:50→20:23)
[2021-12-04] MEDS: HYDROmorphone/PF 10 MG in Sodium Chloride 0.9% 99 ML IVPB PRN (01:33)
[2021-12-04] MEDS: Lactated Ringer's 1,000 ML IV SCH ×3 (03:19→23:43)
[2021-12-04] MEDS: Metoclopramide HCl 10 MG/2 ML VIAL IVP SCH ×4 (03:19→20:23)
[2021-12-04] MEDS ORDERED: Lorazepam 1 MG TAB PO PRN (04:19)
[2021-12-04] MEDS ORDERED: Electrolyte Replacement Protocol 1 EACH FS SCH (04:30)
[2021-12-04] MEDS: Thiamine HCl 200 MG/2 ML VIAL SLOW IVP SCH (07:06)
[2021-12-04] MEDS: Insulin Glargine 30 UNITS/0.3 ML VIAL SC SCH (08:12)
[2021-12-04] MEDS: Gemfibrozil 600 MG TAB PO SCH ×2 (08:12→15:39)
[2021-12-04] MEDS: Multivit, Therapeutic 1 TAB PO SCH (08:13)
[2021-12-04] MEDS: Enoxaparin Sodium 40 MG/0.4 ML SYRINGE SC SCH (08:13)
[2021-12-04] MEDS: Folic Acid 1 MG TAB PO SCH (08:13)
[2021-12-04] MEDS: Pantoprazole 40 MG VIAL IVP SCH (08:13)
[2021-12-04 08:42] LABS: Hemoglobin 9.5 g/dL (12.0-16.0); Mean Corpuscular HGB CONC 31.7 g/dL (32.0-36.0); Mean Corpuscular Hemoglobin 26.8 pg (27.0-31.0); Mean Corpuscular Volume 84.6 fL (78.0-98.0); Mean Platelet Volume 7.6 fL (7.4-10.4); Platelet Count 229 thou/uL (130-400); RBC Distribution Width 17.5 % (11.5-14.5); Red Blood Cell (RBC) Count 3.53 mill/uL (4.20-5.40); White Blood Cell (WBC) Count 10.1 thou/uL (4.8-10.8)
[2021-12-04] MEDS ORDERED: FLU VACC QS2022-23(6MOS UP)/PF 60 MCG/0.5 ML SYRINGE IM ONE (09:00)
[2021-12-04 09:16] LABS: Phosphorus 2.9 mg/dL (2.3-4.7)
[2021-12-04 09:18] LABS: Anion Gap 12 mmol/L (10-20); BUN (Urea Nitrogen) 4 mg/dL (7.0-18.7); Calc. Creatinine Clearance 149 mL/min (70-130); Calcium 8.3 mg/dL (7.8-10.44); Carbon Dioxide 21 mmol/L (22-29); Chloride 106 mmol/L (98-107); Estimated GFR 126; Glucose 195 mg/dL (70-105); Lipase 213 U/L (8-78); Magnesium 1.8 mg/dL (1.6-2.6); Potassium 3.6 mmol/L (3.5-5.1); Sodium 135 mmol/L (136-145)
[2021-12-04] MEDS ORDERED: Magnesium 2 GM/50 ML(in water) 2 GM in Premix Bag 1 BAG IVPB SCH (10:00)
[2021-12-04] MEDS ORDERED: Fentanyl 100 MCG/2 ML VIAL SLOW IVP PRN (11:07)
[2021-12-04] MEDS ORDERED: HYDROcodone/Acetaminophen 5/325 mg Tablet PO PRN ×2 (11:08→11:09)
[2021-12-04] MEDS ORDERED: HYDROcodone/Acetaminophen 10/325 mg Tablet PO PRN (11:13)
[2021-12-04 12:04] LABS: Band 41 % (5-11); Hypochromia SLIGHT = 6-15 cells (100X) (0-5/hpf); Lymphocytes 4 % (21-51); MDiff Complete? YES; Monocytes 2 % (0-10); Neutrophil 53 % (42-75); Platelet Morphology Comment Appears Adequate
[2021-12-04] MEDS: HYDROcodone/Acetaminophen 10/325 mg Tablet PO PRN ×2 (20:22→23:43)
[2021-12-05] MEDS: HumaLOG 300 UNITS/3 ML VIAL SC PRN ×4 (02:33→21:23)
[2021-12-05] MEDS: Metoclopramide HCl 10 MG/2 ML VIAL IVP SCH ×4 (02:44→21:13)
[2021-12-05] MEDS ORDERED: Lorazepam 1 MG TAB PO PRN (04:19)
[2021-12-05 05:08] LABS: #Eosinphils 0.1 thou/uL (0.0-0.7); #Lymphocytes 1.2 thou/uL (1.20-3.40); #Monocytes 0.6 thou/uL (0.11-0.59); #Neutrophils 5.5 thou/uL (1.40-6.50); %Basophils 0.2 % (0.0-1.0); %Eosinophils 1.2 % (0.0-10.0); %Lymphocytes 16.3 % (21.0-51.0); %Monocytes 7.5 % (0.0-10.0); %Neutrophils 74.8 % (42.0-75.0); Hemoglobin 8.9 g/dL (12.0-16.0); Mean Corpuscular HGB CONC 30.2 g/dL (32.0-36.0); Mean Corpuscular Hemoglobin 25.5 pg (27.0-31.0); Mean Corpuscular Volume 84.5 fL (78.0-98.0); Mean Platelet Volume 6.7 fL (7.4-10.4); Platelet Count 252 thou/uL (130-400); RBC Distribution Width 17.7 % (11.5-14.5); Red Blood Cell (RBC) Count 3.48 mill/uL (4.20-5.40); White Blood Cell (WBC) Count 7.4 thou/uL (4.8-10.8)
[2021-12-05 05:45] LABS: Anion Gap 11 mmol/L (10-20); BUN (Urea Nitrogen) Less than 4 mg/dL (7.0-18.7); Calc. Creatinine Clearance 163 mL/min (70-130); Calcium 8.4 mg/dL (7.8-10.44); Carbon Dioxide 24 mmol/L (22-29); Chloride 104 mmol/L (98-107); Estimated GFR 129; Glucose 155 mg/dL (70-105); Lipase 156 U/L (8-78); Magnesium 1.8 mg/dL (1.6-2.6); Potassium 3.7 mmol/L (3.5-5.1); Sodium 135 mmol/L (136-145)
[2021-12-05 05:48] LABS: Phosphorus 4.1 mg/dL (2.3-4.7)
[2021-12-05] MEDS: Thiamine HCl 200 MG/2 ML VIAL SLOW IVP SCH (06:00)
[2021-12-05] MEDS: HYDROcodone/Acetaminophen 10/325 mg Tablet PO PRN ×3 (06:03→23:39)
[2021-12-05] MEDS ORDERED: Magnesium 2 GM/50 ML(in water) 2 GM in Premix Bag 1 BAG IVPB SCH (08:00)
[2021-12-05] MEDS: Pantoprazole 40 MG VIAL IVP SCH (09:22)
[2021-12-05] MEDS: Enoxaparin Sodium 40 MG/0.4 ML SYRINGE SC SCH (09:22)
[2021-12-05] MEDS: Gemfibrozil 600 MG TAB PO SCH ×2 (09:23→18:32)
[2021-12-05] MEDS: Folic Acid 1 MG TAB PO SCH (09:23)
[2021-12-05] MEDS: Multivit, Therapeutic 1 TAB PO SCH (09:23)
[2021-12-05] MEDS: traMADol HCl 50 MG TAB PO PRN (09:28)
[2021-12-05] MEDS: Acetaminophen 325 MG TAB PO PRN (09:28)
[2021-12-05] MEDS: Insulin Glargine 30 UNITS/0.3 ML VIAL SC SCH (09:40)
[2021-12-05] MEDS: Lactated Ringer's 1,000 ML IV SCH ×2 (14:35→21:12)
[2021-12-06] MEDS: traMADol HCl 50 MG TAB PO PRN ×2 (03:14→14:14)
[2021-12-06] MEDS ORDERED: Lorazepam 1 MG TAB PO PRN (04:19)
[2021-12-06] MEDS: HYDROcodone/Acetaminophen 10/325 mg Tablet PO PRN ×4 (04:24→21:28)
[2021-12-06] MEDS: Thiamine HCl 200 MG/2 ML VIAL SLOW IVP SCH (05:39)
[2021-12-06] MEDS ORDERED: Morphine 4 MG/ML VIAL ONE (05:58)
[2021-12-06] MEDS ORDERED: Morphine 4 MG/ML VIAL SLOW IVP SCH (06:00)
[2021-12-06 07:52] LABS: Phosphorus 4.2 mg/dL (2.3-4.7)
[2021-12-06 07:56] LABS: Anion Gap 16 mmol/L (10-20); BUN (Urea Nitrogen) 4 mg/dL (7.0-18.7); Calc. Creatinine Clearance 115 mL/min (70-130); Calcium 8.9 mg/dL (7.8-10.44); Carbon Dioxide 22 mmol/L (22-29); Chloride 97 mmol/L (98-107); Estimated GFR 117; Glucose 254 mg/dL (70-105); Magnesium 1.7 mg/dL (1.6-2.6); Potassium 4.2 mmol/L (3.5-5.1); Sodium 131 mmol/L (136-145)
[2021-12-06] MEDS ORDERED: Magnesium 2 GM/50 ML(in water) 2 GM in Premix Bag 1 BAG IVPB SCH (09:00)
[2021-12-06] MEDS: Multivit, Therapeutic 1 TAB PO SCH (09:06)
[2021-12-06] MEDS: Insulin Glargine 30 UNITS/0.3 ML VIAL SC SCH (09:06)
[2021-12-06] MEDS: Lactated Ringer's 1,000 ML IV SCH ×3 (09:06→22:10)
[2021-12-06] MEDS: Gemfibrozil 600 MG TAB PO SCH ×2 (09:06→16:38)
[2021-12-06] MEDS: Folic Acid 1 MG TAB PO SCH (09:06)
[2021-12-06] MEDS: Enoxaparin Sodium 40 MG/0.4 ML SYRINGE SC SCH (09:07)
[2021-12-06] MEDS: Pantoprazole 40 MG VIAL IVP SCH (09:07)
[2021-12-06] MEDS ORDERED: Iopamidol-370 76% 500 ML 1 ML ONE (10:25)
[2021-12-06] MEDS: HumaLOG 300 UNITS/3 ML VIAL SC PRN ×3 (11:23→21:28)
[2021-12-07] MEDS ORDERED: Morphine 4 MG/ML VIAL SLOW IVP SCH (02:45)
[2021-12-07] MEDS ORDERED: Lorazepam 0.5 MG TAB PO PRN (04:19)
[2021-12-07] MEDS: HumaLOG 300 UNITS/3 ML VIAL SC PRN ×3 (04:30→17:48)
[2021-12-07] MEDS: HYDROcodone/Acetaminophen 10/325 mg Tablet PO PRN ×2 (06:36→11:03)
[2021-12-07 07:59] LABS: #Eosinphils 0.1 thou/uL (0.0-0.7); #Lymphocytes 1.2 thou/uL (1.20-3.40); #Monocytes 0.7 thou/uL (0.11-0.59); #Neutrophils 5.6 thou/uL (1.40-6.50); %Basophils 0.3 % (0.0-1.0); %Eosinophils 1.3 % (0.0-10.0); %Lymphocytes 15.8 % (21.0-51.0); %Monocytes 9.1 % (0.0-10.0); %Neutrophils 73.5 % (42.0-75.0); Hemoglobin 9.8 g/dL (12.0-16.0); Mean Corpuscular HGB CONC 30.5 g/dL (32.0-36.0); Mean Corpuscular Hemoglobin 25.8 pg (27.0-31.0); Mean Corpuscular Volume 84.4 fL (78.0-98.0); Mean Platelet Volume 7.6 fL (7.4-10.4); Platelet Count 354 thou/uL (130-400); RBC Distribution Width 17.3 % (11.5-14.5); Red Blood Cell (RBC) Count 3.79 mill/uL (4.20-5.40); White Blood Cell (WBC) Count 7.6 thou/uL (4.8-10.8)
[2021-12-07 08:11] LABS: Anion Gap 13 mmol/L (10-20); BUN (Urea Nitrogen) 4 mg/dL (7.0-18.7); Calc. Creatinine Clearance 139 mL/min (70-130); Carbon Dioxide 24 mmol/L (22-29); Chloride 96 mmol/L (98-107); Estimated GFR 126; Glucose 183 mg/dL (70-105); Magnesium 1.6 mg/dL (1.6-2.6); Phosphorus 3.6 mg/dL (2.3-4.7); Potassium 4.1 mmol/L (3.5-5.1); Sodium 129 mmol/L (136-145)
[2021-12-07 08:15] VITALS: BP 121/81; TEMP 98.8
[2021-12-07] MEDS: Gemfibrozil 600 MG TAB PO SCH ×2 (08:45→17:49)
[2021-12-07] MEDS: traMADol HCl 50 MG TAB PO PRN (08:45)
[2021-12-07] MEDS: Folic Acid 1 MG TAB PO SCH (08:45)
[2021-12-07] MEDS: Multivit, Therapeutic 1 TAB PO SCH (08:45)
[2021-12-07] MEDS: Insulin Glargine 30 UNITS/0.3 ML VIAL SC SCH (08:46)
[2021-12-07] MEDS: Pantoprazole 40 MG VIAL IVP SCH (08:46)
[2021-12-07] MEDS: Enoxaparin Sodium 40 MG/0.4 ML SYRINGE SC SCH (08:47)
[2021-12-07] MEDS: Lactated Ringer's 1,000 ML IV SCH ×2 (08:54→12:00)
[2021-12-07] MEDS ORDERED: Thiamine 100 MG TAB PO SCH (09:00)
[2021-12-07] MEDS ORDERED: Magnesium 2 GM/50 ML(in water) 2 GM in Premix Bag 1 BAG IVPB SCH (13:00)
== END 2021-12-07 19:05 | disposition home or self-care (01) | DRG 871 ==
LOC: ERS 20:18 → IMCU/EMU 23:10 → CCU 12-01 20:49 → T4-B 12-03 14:31
PROVIDERS: ADMIT Internal Medicine; ATTEND Internal Medicine
DX: A40.1 Sepsis due to streptococcus, group B (principal); E10.10 Type 1 diabetes mellitus with ketoacidosis without coma; K85.90 Acute pancreatitis without necrosis or infection, unspecified; G93.41 Metabolic encephalopathy; N39.0 Urinary tract infection, site not specified; K56.7 Ileus, unspecified; E87.1 Hypo-osmolality and hyponatremia; Z20.822 Contact with and (suspected) exposure to COVID-19; D64.9 Anemia, unspecified; F41.9 Anxiety disorder, unspecified; F32.A Depression, unspecified; F14.10 Cocaine abuse, uncomplicated; R65.20 Severe sepsis without septic shock; E83.51 Hypocalcemia; E78.1 Pure hyperglyceridemia; F12.10 Cannabis abuse, uncomplicated; G47.00 Insomnia, unspecified; E55.9 Vitamin D deficiency, unspecified; Z87.891 Personal history of nicotine dependence
CPT/HCPCS: 36415; 36416; 36600; 71045; 71275; 74177; 80048; 80053; 81003; 81015; 82010; 82306; 82805; 83605; 83690; 83735; 84100; 84478; 84703; 85025; 87040; 87077; 87086; 87811; 90471; 90686; 93005; 94760; 96374; 96375; C9113; G0008; J0610; J0696; J0780; J1170; J1200; J1650; J1815; J1885; J2270; J2405; J2543; J2765; J3411; J3475; J3480; J3490; J7050; J7070; J7120; Q9967

== ENCOUNTER 2021-12-09 21:11 | Inpatient (IN) | payer SELFPAY ==
[2021-12-09] MEDS ORDERED: diphenhydrAMINE 50 MG/ML VIAL ONE (21:45)
[2021-12-09] MEDS ORDERED: Morphine 4 MG/ML VIAL ONE ×2 (21:45→23:52)
[2021-12-09] MEDS ORDERED: Metoclopramide HCl 10 MG/2 ML VIAL ONE (21:45)
[2021-12-09 22:27] LABS: #Basophils 0.1 thou/uL (0.0-0.2); #Eosinphils 0.1 thou/uL (0.0-0.7); #Lymphocytes 1.8 thou/uL (1.20-3.40); #Monocytes 0.8 thou/uL (0.11-0.59); %Basophils 0.5 % (0.0-1.0); %Eosinophils 0.3 % (0.0-10.0); %Lymphocytes 9.5 % (21.0-51.0); %Neutrophils 85.6 % (42.0-75.0); Hemoglobin 11.1 g/dL (12.0-16.0); Mean Corpuscular HGB CONC 29.8 g/dL (32.0-36.0); Mean Corpuscular Volume 87.1 fL (78.0-98.0); Mean Platelet Volume 6.3 fL (7.4-10.4); Platelet Count 727 thou/uL (130-400); Red Blood Cell (RBC) Count 4.29 mill/uL (4.20-5.40); White Blood Cell (WBC) Count 18.6 thou/uL (4.8-10.8)
[2021-12-09 22:33] LABS: BHCG - Serum Negative (NEGATIVE); Pregs Control Background? CLEAR/WHITE (CLR/WHITE); Pregs Control Bar Appear? YES (CONTROL BAR)
[2021-12-09 22:46] LABS: ALT (SGPT) 8 U/L (8-55); AST (SGOT) 13 U/L (5-34); Albumin 3.7 g/dL (3.5-5.0); Alkaline Phosphatase 153 U/L (40-110); BUN (Urea Nitrogen) 7 mg/dL (7.0-18.7); Bilirubin, Total 0.2 mg/dL (0.2-1.2); Calc. Creatinine Clearance 0 mL/min (70-130); Calcium 9.6 mg/dL (7.8-10.44); Chloride 107 mmol/L (98-107); Estimated GFR 64; Globulin 5.2 g/dL (2.4-3.5); Glucose 321 mg/dL (70-105); Lipase 94 U/L (8-78); Potassium 4.5 mmol/L (3.5-5.1); Protein, Total 8.9 g/dL (6.0-8.3); Sodium 133 mmol/L (136-145)
[2021-12-09 22:49] LABS: Carbon Dioxide Less than 8 mmol/L (22-29)
[2021-12-09] MEDS ORDERED: INSULIN REGULAR IN 0.9 % NACL 100 UNIT/100 ML BAG ONE (23:37)
[2021-12-09] MEDS ORDERED: Vecuronium 10 MG VIAL ONE (23:43)
[2021-12-10 00:32] LABS: Base Excess -24.7 mEq/L (-2.0 to +3.0); Calcium, Ionized (venous) 1.17 mmol/L (1.16-1.32); Chloride (VBG) 106 mmol/L (98-106); Hemoglobin (Hb) 12.9 g/dL (11.7-15.5); Potassium (VBG) 4.54 mmol/L (3.70-5.30); Sodium 134.6 mmol/L (133-146)
[2021-12-10 00:35] LABS: Actual Bicarbonate (HCO3v) 5 mEq/L (22-28); pH (venous) 7.01 (7.32-7.43)
[2021-12-10] MEDS ORDERED: Ondansetron ODT 4 MG TAB PO PRN (00:53)
[2021-12-10] MEDS ORDERED: NS 0.9% w/ 20 MEQ KCL 1,000 ML IV PRN ×2 (00:53)
[2021-12-10] MEDS ORDERED: Acetaminophen 650 MG Suppository PR PRN (00:53)
[2021-12-10] MEDS ORDERED: Ondansetron PF 4 MG/2 ML Vial IVP PRN (00:53)
[2021-12-10] MEDS ORDERED: Acetaminophen 325 MG TAB PO PRN (00:53)
[2021-12-10] MEDS ORDERED: Sodium Chloride 0.9% 1,000 ML IV PRN ×4 (00:53)
[2021-12-10] MEDS ORDERED: Dextrose 5 %-0.45 % NaCl 1,000 ML IV PRN (00:53)
[2021-12-10] MEDS ORDERED: Electrolyte Replacement Protocol 1 EACH IVPB PRN (00:53)
[2021-12-10] MEDS ORDERED: HUMULIN R 100 UNITS in Sodium Chloride 0.9% 100 ML IVPB SCH (01:00)
[2021-12-10 01:22] LABS: Bilirubin Negative (Negative); Blood, Urine Negative (Negative); Clarity Clear (Clear); Glucose, Urine (Dipstick) Greater than 1000 mg/dL (Negative); Ketone, Urine Greater than 150 mg/dL (Negative); Leukocyte Negative Leu/uL (Negative); Nitrite Negative (Negative); Protein, Urine (Dipstick) 50 mg/dL (Neg-Trace); RBC/HPF None Seen HPF (0-3); Specific Gravity, Urine 1.021 (1.002-1.036); Squamous Epithelial 0-3 HPF (0-3); Urobilinogen Normal mg/dL (Less than 2); WBC/HPF 0-3 HPF (0-3); pH, Urine 5.5 (5.0-9.0)
[2021-12-10 01:27] LABS: Bacteria/HPF 1+ HPF (None Seen)
[2021-12-10 02:59] LABS: Base Excess -20.6 mEq/L (-2.0 to +3.0); Calcium, Ionized (venous) 1.25 mmol/L (1.16-1.32); Chloride (VBG) 112 mmol/L (98-106); Hemoglobin (Hb) 11.7 g/dL (11.7-15.5); Potassium (VBG) 4.16 mmol/L (3.70-5.30); Sodium 137.8 mmol/L (133-146)
[2021-12-10 03:00] LABS: Actual Bicarbonate (HCO3v) 7 mEq/L (22-28)
[2021-12-10] MEDS ORDERED: Pantoprazole 40 MG VIAL IVP SCH (03:00)
[2021-12-10] MEDS ORDERED: Dextrose 10% in Water 250 ML IVPB PRN (03:37)
[2021-12-10] MEDS ORDERED: Dextrose 5% in Water 1,000 ML IV PRN ×2 (03:45→13:52)
[2021-12-10] MEDS ORDERED: Sodium Bicarb 50 MEQ/50 ML VIAL IVP SCH (04:00)
[2021-12-10 04:05] LABS: #Basophils 0.1 thou/uL (0.0-0.2); #Eosinphils 0.1 thou/uL (0.0-0.7); #Monocytes 0.7 thou/uL (0.11-0.59); #Neutrophils 13.6 thou/uL (1.40-6.50); %Basophils 0.4 % (0.0-1.0); %Eosinophils 0.4 % (0.0-10.0); %Lymphocytes 12.1 % (21.0-51.0); %Monocytes 4.5 % (0.0-10.0); %Neutrophils 82.6 % (42.0-75.0); Mean Corpuscular HGB CONC 28.9 g/dL (32.0-36.0); Mean Corpuscular Hemoglobin 25.3 pg (27.0-31.0); Mean Corpuscular Volume 87.7 fL (78.0-98.0); Mean Platelet Volume 6.2 fL (7.4-10.4); Platelet Count 648 thou/uL (130-400); RBC Distribution Width 16.8 % (11.5-14.5); Red Blood Cell (RBC) Count 3.93 mill/uL (4.20-5.40); White Blood Cell (WBC) Count 16.4 thou/uL (4.8-10.8)
[2021-12-10 04:19] LABS: BUN (Urea Nitrogen) 6 mg/dL (7.0-18.7); Calc. Creatinine Clearance 0 mL/min (70-130); Calcium 9.3 mg/dL (7.8-10.44); Chloride 112 mmol/L (98-107); Estimated GFR 86; Glucose 106 mg/dL (70-105); Potassium 4.1 mmol/L (3.5-5.1); Sodium 134 mmol/L (136-145)
[2021-12-10 04:24] LABS: Carbon Dioxide Less than 8 mmol/L (22-29)
[2021-12-10] MEDS: D5 1/2 NS w/20 mEq KCL 1,000 ML IV PRN ×2 (05:18→09:45)
[2021-12-10] MEDS: Morphine 4 MG/ML VIAL SLOW IVP PRN ×3 (05:45→15:58)
[2021-12-10 05:49] LABS: Amphetamine Not Detected (NotDetected); Barbiturates Screen Not Detected (NotDetected); Benzodiazepine Screen Not Detected (NotDetected); Cocaine Metabolite Screen Not Detected (NotDetected); Methadone Not Detected (NotDetected); Methamphetamine Not Detected (NotDetected); Opiate Screen Detected (NotDetected); Oxycodone Screen Not Detected (NotDetected); Phencyclidine (PCP) Not Detected (NotDetected); THC/Cannabinoid Screen Not Detected (NotDetected); Tricyclic Screen Detected (NotDetected)
[2021-12-10 06:16] LABS: SARS-CoV-2 NAA Rapid Test Not Detected (NotDetected)
[2021-12-10] MEDS ORDERED: Magnesium 2 GM/50 ML(in water) 2 GM in Premix Bag 1 BAG IVPB SCH (08:00)
[2021-12-10] MEDS: Pantoprazole 40 MG VIAL IVP SCH (09:49)
[2021-12-10 11:30] LABS: Anion Gap 12 mmol/L (10-20); BUN (Urea Nitrogen) Less than 4 mg/dL (7.0-18.7); Calc. Creatinine Clearance 0 mL/min (70-130); Calcium 8.6 mg/dL (7.8-10.44); Carbon Dioxide 14 mmol/L (22-29); Chloride 109 mmol/L (98-107); Estimated GFR 96; Glucose 224 mg/dL (70-105); Potassium 3.3 mmol/L (3.5-5.1); Sodium 132 mmol/L (136-145)
[2021-12-10] MEDS ORDERED: Potassium Chloride 20 MEQ in Premix Bag 1 BAG IVPB SCH (13:00)
[2021-12-10] MEDS ORDERED: Potassium Chloride 20 MEQ TAB PO SCH (13:36)
[2021-12-10] MEDS ORDERED: Dextrose 50% Abboject 50 ML SYRINGE SLOW IVP PRN (13:52)
[2021-12-10] MEDS ORDERED: HumaLOG 300 UNITS/3 ML VIAL SC PRN (13:52)
[2021-12-10] MEDS: Sodium Chloride 0.9% 1,000 ML IV SCH ×2 (15:28→20:16)
[2021-12-10] MEDS: Gemfibrozil 600 MG TAB PO SCH (15:58)
[2021-12-10] MEDS: HumaLOG 300 UNITS/3 ML VIAL SC PRN (18:29)
[2021-12-10] MEDS: Insulin Glargine 30 UNITS/0.3 ML VIAL SC SCH (20:16)
[2021-12-11] MEDS: HumaLOG 300 UNITS/3 ML VIAL SC PRN ×3 (04:30→16:42)
[2021-12-11] MEDS: Morphine 4 MG/ML VIAL SLOW IVP PRN (04:34)
[2021-12-11] MEDS: Sodium Chloride 0.9% 1,000 ML IV SCH ×3 (04:39→16:43)
[2021-12-11] MEDS ORDERED: diphenhydrAMINE 25 MG CAP PO SCH (05:00)
[2021-12-11 06:57] LABS: #Eosinphils 0.1 thou/uL (0.0-0.7); #Lymphocytes 1.2 thou/uL (1.20-3.40); #Monocytes 0.3 thou/uL (0.11-0.59); #Neutrophils 5.1 thou/uL (1.40-6.50); %Basophils 0.6 % (0.0-1.0); %Eosinophils 1.2 % (0.0-10.0); %Lymphocytes 17.9 % (21.0-51.0); %Monocytes 4.8 % (0.0-10.0); %Neutrophils 75.6 % (42.0-75.0); Hemoglobin 9.2 g/dL (12.0-16.0); Mean Corpuscular Hemoglobin 25.9 pg (27.0-31.0); Mean Corpuscular Volume 83.4 fL (78.0-98.0); Mean Platelet Volume 5.9 fL (7.4-10.4); Platelet Count 584 thou/uL (130-400); RBC Distribution Width 16.4 % (11.5-14.5); Red Blood Cell (RBC) Count 3.55 mill/uL (4.20-5.40); White Blood Cell (WBC) Count 6.7 thou/uL (4.8-10.8)
[2021-12-11 07:23] LABS: Anion Gap 10 mmol/L (10-20); BUN (Urea Nitrogen) Less than 4 mg/dL (7.0-18.7); Calc. Creatinine Clearance 0 mL/min (70-130); Calcium 8.6 mg/dL (7.8-10.44); Carbon Dioxide 20 mmol/L (22-29); Chloride 104 mmol/L (98-107); Estimated GFR 108; Glucose 333 mg/dL (70-105); Potassium 3.4 mmol/L (3.5-5.1); Sodium 131 mmol/L (136-145)
[2021-12-11] MEDS ORDERED: Potassium Chloride 20 MEQ TAB PO SCH (08:00)
[2021-12-11] MEDS: Pantoprazole 40 MG VIAL IVP SCH (08:48)
[2021-12-11] MEDS: Insulin Glargine 30 UNITS/0.3 ML VIAL SC SCH (08:50)
[2021-12-11] MEDS: Gemfibrozil 600 MG TAB PO SCH ×2 (08:50→16:43)
[2021-12-11] MEDS ORDERED: Insulin Glargine 30 UNITS/0.3 ML VIAL SC SCH ×3 (10:42→21:00)
[2021-12-11 12:21] VITALS: TEMP 97; BMI 22.7
[2021-12-11 12:48] VITALS: BP 109/78
== END 2021-12-11 18:16 | disposition home or self-care (01) | DRG 638 ==
LOC: ERS 21:11 → IMCU/EMU 12-10 00:05 → T4-A 12-10 21:21
PROVIDERS: ADMIT Student in an Organized Health Care Education/Training Program; ATTEND Internal Medicine
DX: E10.10 Type 1 diabetes mellitus with ketoacidosis without coma (principal); E87.1 Hypo-osmolality and hyponatremia; N17.9 Acute kidney failure, unspecified; D64.9 Anemia, unspecified; Z20.822 Contact with and (suspected) exposure to COVID-19; E86.0 Dehydration; D72.829 Elevated white blood cell count, unspecified; E55.9 Vitamin D deficiency, unspecified; E87.6 Hypokalemia; Z79.899 Other long term (current) drug therapy; Z79.4 Long term (current) use of insulin; Z91.14 Patient's other noncompliance with medication regimen; Z87.891 Personal history of nicotine dependence
CPT/HCPCS: 36415; 36416; 71045; 76705; 80048; 80053; 80306; 81001; 82010; 82805; 83690; 83735; 84478; 84484; 84703; 85025; 93005; 96365; 96366; 96367; 96368; 96375; 96376; C9113; J1200; J1815; J2270; J2765; J3475; J3480; J7042; J7050; U0002

== ENCOUNTER 2022-08-19 13:14 | Inpatient (IN) | payer SELFPAY ==
[2022-08-19] MEDS ORDERED: Metoclopramide HCl 10 MG/2 ML VIAL ONE (13:38)
[2022-08-19] MEDS ORDERED: diphenhydrAMINE 50 MG/ML VIAL ONE (13:38)
[2022-08-19] MEDS ORDERED: Iopamidol-370 76% 500 ML MDV (1 ML CHARGE) ONE (13:48)
[2022-08-19 14:10] LABS: Base Excess -21.8 mEq/L (-2.0 to +3.0); Calcium, Ionized (venous) 1.25 mmol/L (1.16-1.32); Chloride (VBG) 101 mmol/L (98-106); Hematocrit-VBG 46 % (36.0-47.0); Hemoglobin (Hb) 15.8 g/dL (11.7-15.5); Potassium (VBG) 5.28 mmol/L (3.70-5.30)
[2022-08-19 14:11] LABS: Actual Bicarbonate (HCO3v) 6.9 mEq/L (22-28); pH (venous) 7.067 (7.32-7.43)
[2022-08-19] MEDS ORDERED: Morphine 4 MG/ML VIAL ONE ×2 (14:15→14:40)
[2022-08-19 14:16] LABS: #Basophils 0.1 thou/uL (0.0-0.2); #Monocytes 0.5 thou/uL (0.11-0.59); #Neutrophils 16.6 thou/uL (1.40-6.50); %Basophils 0.5 % (0.0-1.0); %Lymphocytes 9.4 % (21.0-51.0); %Monocytes 2.4 % (0.0-10.0); %Neutrophils 87.1 % (42.0-75.0); Hemoglobin 14.5 g/dL (12.0-16.0); Mean Corpuscular HGB CONC 30.8 g/dL (32.0-36.0); Mean Corpuscular Hemoglobin 25.5 pg (27.0-31.0); Mean Corpuscular Volume 82.8 fl (78.0-98.0); Mean Platelet Volume 9.4 fL (7.4-10.4); Platelet Count 475 10x3/uL (130-400); RBC Distribution Width 14.7 % (11.5-14.5); Red Blood Cell (RBC) Count 5.69 mill/uL (4.20-5.40)
[2022-08-19 14:25] LABS: Bacteria/HPF None Seen HPF (None Seen); Bilirubin Negative (Negative); Blood, Urine Negative (Negative); CAUTI Indications for Culture Pelvic or flank pain; Clarity Clear (Clear); Glucose, Urine (Dipstick) Greater than 1000 mg/dL (Negative); Ketone, Urine Greater than 150 mg/dL (Negative); Leukocyte Negative Leu/uL (Negative); Nitrite Negative (Negative); Protein, Urine (Dipstick) 50 mg/dL (Neg-Trace); RBC/HPF 0-3 HPF (0-3); Specific Gravity, Urine 1.023 (1.002-1.036); Urobilinogen Normal mg/dL (Less than 2); WBC/HPF 0-3 HPF (0-3)
[2022-08-19 14:34] LABS: Amphetamine Not Detected (NotDetected); Barbiturates Screen Not Detected (NotDetected); Benzodiazepine Screen Not Detected (NotDetected); Cocaine Metabolite Screen Detected (NotDetected); Methadone Not Detected (NotDetected); Methamphetamine Not Detected (NotDetected); Opiate Screen Not Detected (NotDetected); Oxycodone Screen Not Detected (NotDetected); Phencyclidine (PCP) Not Detected (NotDetected); THC/Cannabinoid Screen Not Detected (NotDetected); Tricyclic Screen Not Detected (NotDetected)
[2022-08-19 14:35] LABS: BHCG - Serum Negative (NEGATIVE); Pregs Control Background? CLEAR/WHITE (CLR/WHITE); Pregs Control Bar Appear? YES (CONTROL BAR)
[2022-08-19 14:36] LABS: Urine Culture Reflex No No
[2022-08-19] MEDS ORDERED: Ketorolac Tromethamine 30 MG/ML VIAL ONE (14:40)
[2022-08-19 14:52] LABS: ALT (SGPT) 28 U/L (8-55); AST (SGOT) 36 U/L (5-34); Albumin 5.4 g/dL (3.5-5.0); Alkaline Phosphatase 183 U/L (40-110); Anion Gap 33 mmol/L (10-20); BUN (Urea Nitrogen) 16 mg/dL (7.0-18.7); Bilirubin, Total 0.8 mg/dL (0.2-1.2); Calc. Creatinine Clearance 0 mL/min (70-130); Calcium 10.6 mg/dL (7.8-10.44); Chloride 99 mmol/L (98-107); Estimated GFR 60; Globulin 5.5 g/dL (2.4-3.5); Lipase 19 U/L (8-78); Phosphorus 5.2 mg/dL (2.3-4.7); Potassium 5.2 mmol/L (3.5-5.1); Protein, Total 10.9 g/dL (6.0-8.3); Sodium 135 mmol/L (136-145)
[2022-08-19 15:05] LABS: Carbon Dioxide 8 mmol/L (22-29); Glucose 429 mg/dL (70-105)
[2022-08-19] MEDS ORDERED: INSULIN REGULAR IN 0.9 % NACL 100 UNITS/100 ML BAG ONE (15:17)
[2022-08-19] MEDS ORDERED: Dextrose 5 %-0.45 % NaCl 1,000 ML IV PRN (16:23)
[2022-08-19] MEDS ORDERED: Electrolyte Replacement Protocol 1 EACH IVPB SCH (16:23)
[2022-08-19] MEDS ORDERED: Sodium Chloride 0.9% 1,000 ML IV PRN ×4 (16:23)
[2022-08-19] MEDS ORDERED: NS 0.9% w/ 20 MEQ KCL 1,000 ML IV PRN ×2 (16:23)
[2022-08-19] MEDS ORDERED: HUMULIN R 100 UNITS in Sodium Chloride 0.9% 100 ML IVPB SCH (16:30)
[2022-08-19] MEDS ORDERED: Ondansetron ODT 4 MG TAB SL PRN (17:15)
[2022-08-19 18:03] LABS: Phosphorus 3.3 mg/dL (2.3-4.7)
[2022-08-19 18:04] LABS: BUN (Urea Nitrogen) 13 mg/dL (7.0-18.7); Calc. Creatinine Clearance 81 mL/min (70-130); Calcium 8.9 mg/dL (7.8-10.44); Carbon Dioxide Less than 8 mmol/L (22-29); Chloride 113 mmol/L (98-107); Estimated GFR 75; Glucose 122 mg/dL (70-105); Potassium 4.5 mmol/L (3.5-5.1); Sodium 139 mmol/L (136-145)
[2022-08-19] MEDS: Dextrose 50% Abboject 50 ML SYRINGE SLOW IVP PRN ×2 (18:26→21:12)
[2022-08-19] MEDS ORDERED: Calcium Chloride 13.6 MEQ in Sodium Chloride 0.9% 100 ML IVPB SCH (18:30)
[2022-08-19] MEDS ORDERED: Potassium Phosphate 15 MMOL in Sodium Chloride 0.9% 100 ML IVPB SCH (18:30)
[2022-08-19] MEDS: D5 1/2 NS w/20 mEq KCL 1,000 ML IV PRN ×2 (18:54→22:39)
[2022-08-19] MEDS: Ondansetron PF 4 MG/2 ML Vial IVP PRN (19:49)
[2022-08-19] MEDS ORDERED: Morphine 4 MG/ML VIAL SLOW IVP SCH (20:30)
[2022-08-19 23:10] LABS: Anion Gap 15 mmol/L (10-20); BUN (Urea Nitrogen) 11 mg/dL (7.0-18.7); Calc. Creatinine Clearance 91 mL/min (70-130); Carbon Dioxide 13 mmol/L (22-29); Chloride 110 mmol/L (98-107); Estimated GFR 87; Glucose 198 mg/dL (70-105); Potassium 4.8 mmol/L (3.5-5.1); Sodium 133 mmol/L (136-145)
[2022-08-19 23:13] LABS: Phosphorus 2.5 mg/dL (2.3-4.7)
[2022-08-20] MEDS: Morphine 4 MG/ML VIAL SLOW IVP PRN ×5 (00:25→22:51)
[2022-08-20] MEDS: Dextrose 50% Abboject 50 ML SYRINGE SLOW IVP PRN (01:00)
[2022-08-20] MEDS: Ondansetron PF 4 MG/2 ML Vial IVP PRN (02:29)
[2022-08-20] MEDS: D5 1/2 NS w/20 mEq KCL 1,000 ML IV PRN ×2 (02:39→06:29)
[2022-08-20 03:19] LABS: Anion Gap 14 mmol/L (10-20); BUN (Urea Nitrogen) 9 mg/dL (7.0-18.7); Calc. Creatinine Clearance 85 mL/min (70-130); Carbon Dioxide 15 mmol/L (22-29); Chloride 110 mmol/L (98-107); Estimated GFR 80; Glucose 223 mg/dL (70-105); Potassium 4.2 mmol/L (3.5-5.1); Sodium 135 mmol/L (136-145)
[2022-08-20 08:49] VITALS: BMI 26.6
[2022-08-20 09:35] LABS: Anion Gap 11 mmol/L (10-20); BUN (Urea Nitrogen) 6 mg/dL (7.0-18.7); Calc. Creatinine Clearance 120 mL/min (70-130); Calcium 8.4 mg/dL (7.8-10.44); Carbon Dioxide 16 mmol/L (22-29); Chloride 108 mmol/L (98-107); Estimated GFR 115; Glucose 182 mg/dL (70-105); Potassium 3.9 mmol/L (3.5-5.1); Sodium 131 mmol/L (136-145)
[2022-08-20 13:23] LABS: Anion Gap 12 mmol/L (10-20); BUN (Urea Nitrogen) 5 mg/dL (7.0-18.7); Calc. Creatinine Clearance 116 mL/min (70-130); Calcium 8.2 mg/dL (7.8-10.44); Carbon Dioxide 16 mmol/L (22-29); Chloride 111 mmol/L (98-107); Estimated GFR 111; Glucose 136 mg/dL (70-105); Sodium 135 mmol/L (136-145)
[2022-08-20] MEDS ORDERED: Insulin Regular 300 UNITS/3 ML VIAL IVP SCH (17:00)
[2022-08-20] MEDS: Insulin Regular 300 UNITS/3 ML VIAL SC SCH (17:46)
[2022-08-20] MEDS ORDERED: Insulin Glargine 30 UNITS/0.3 ML VIAL SC SCH (21:00)
[2022-08-20 21:08] LABS: Anion Gap 13 mmol/L (10-20); BUN (Urea Nitrogen) 4 mg/dL (7.0-18.7); Calc. Creatinine Clearance 97 mL/min (70-130); Calcium 8.8 mg/dL (7.8-10.44); Carbon Dioxide 18 mmol/L (22-29); Chloride 106 mmol/L (98-107); Estimated GFR 89; Glucose 296 mg/dL (70-105); Potassium 4.1 mmol/L (3.5-5.1); Sodium 133 mmol/L (136-145)
[2022-08-21] MEDS ORDERED: Ondansetron ODT 4 MG TAB PO PRN (03:30)
[2022-08-21] MEDS ORDERED: Ondansetron PF 4 MG/2 ML Vial IVP PRN (03:30)
[2022-08-21 03:55] LABS: #Eosinphils 0.1 thou/uL (0.0-0.7); #Monocytes 0.5 thou/uL (0.11-0.59); %Basophils 0.6 % (0.0-1.0); %Eosinophils 1.6 % (0.0-10.0); %Lymphocytes 31.6 % (21.0-51.0); %Monocytes 6.8 % (0.0-10.0); %Neutrophils 59.3 % (42.0-75.0); Mean Corpuscular Hemoglobin 25.5 pg (27.0-31.0); Mean Corpuscular Volume 79.6 fl (78.0-98.0); Platelet Count 312 10x3/uL (130-400); RBC Distribution Width 15.3 % (11.5-14.5); Red Blood Cell (RBC) Count 4.71 mill/uL (4.20-5.40); White Blood Cell (WBC) Count 6.8 10x3/uL (4.8-10.8)
[2022-08-21 04:17] LABS: Anion Gap 12 mmol/L (10-20); BUN (Urea Nitrogen) 5 mg/dL (7.0-18.7); Calc. Creatinine Clearance 134 mL/min (70-130); Calcium 8.8 mg/dL (7.8-10.44); Carbon Dioxide 21 mmol/L (22-29); Chloride 106 mmol/L (98-107); Estimated GFR 123; Glucose 106 mg/dL (70-105); Potassium 3.3 mmol/L (3.5-5.1); Sodium 136 mmol/L (136-145)
[2022-08-21] MEDS ORDERED: Potassium Chloride 20 MEQ TAB PO SCH (08:00)
[2022-08-21] MEDS ORDERED: Potassium Chloride 20 MEQ in Premix Bag 1 BAG IVPB SCH (08:00)
[2022-08-21] MEDS: Insulin Regular 300 UNITS/3 ML VIAL SC SCH ×2 (10:55→12:28)
[2022-08-21 11:05] VITALS: TEMP 98.4
== END 2022-08-21 15:46 | disposition home or self-care (01) | DRG 639 ==
LOC: ERS 13:14 → IMCU/EMU 15:32
PROVIDERS: ADMIT Internal Medicine; ATTEND Family Medicine
PROC: 4A043R1 Measurement of Venous Saturation, Peripheral, Percutaneous Approach (ICD-10-PCS; principal; 2022-08-19)
DX: E10.10 Type 1 diabetes mellitus with ketoacidosis without coma (principal); F19.10 Other psychoactive substance abuse, uncomplicated; D64.9 Anemia, unspecified; F41.9 Anxiety disorder, unspecified; F32.A Depression, unspecified; Z79.4 Long term (current) use of insulin; Z79.899 Other long term (current) drug therapy; Z83.3 Family history of diabetes mellitus; Z98.890 Other specified postprocedural states; Z71.51 Drug abuse counseling and surveillance of drug abuser
CPT/HCPCS: 36415; 36416; 74177; 80048; 80053; 80306; 81001; 82010; 82805; 83605; 83690; 83930; 84100; 84484; 84703; 85025; 87040; 93005; 96361; 96365; 96375; J1200; J1815; J1885; J2270; J2405; J2765; J3480; J3490; J7042; J7999; Q9967

== ENCOUNTER 2022-10-10 10:20 | Inpatient (IN) | payer SELFPAY ==
[2022-10-10] MEDS ORDERED: Dicyclomine 20 MG/2 ML VIAL ONE (10:53)
[2022-10-10 11:21] LABS: Base Excess -21.1 mEq/L (-2.0 to +3.0); Calcium, Ionized (venous) 1.16 mmol/L (1.16-1.32); Chloride (VBG) 103 mmol/L (98-106); Hematocrit-VBG 46 % (36.0-47.0); Hemoglobin (Hb) 15.5 g/dL (11.7-15.5); Potassium (VBG) 4.95 mmol/L (3.70-5.30); Sodium 140.7 mmol/L (133-146)
[2022-10-10 11:28] LABS: Bacteria/HPF None Seen HPF (None Seen); Bilirubin Negative (Negative); Blood, Urine 3+ (Negative); CAUTI Indications for Culture Pelvic or flank pain; Clarity Clear (Clear); Glucose, Urine (Dipstick) Greater than 1000 mg/dL (Negative); Ketone, Urine Greater than 150 mg/dL (Negative); Leukocyte Negative Leu/uL (Negative); Nitrite Negative (Negative); Protein, Urine (Dipstick) 50 mg/dL (Neg-Trace); Specific Gravity, Urine 1.027 (1.002-1.036); Squamous Epithelial 0-3 HPF (0-3); Urobilinogen Normal mg/dL (Less than 2); WBC/HPF 0-3 HPF (0-3)
[2022-10-10 11:29] LABS: Urine Culture Reflex No No
[2022-10-10 11:44] LABS: BUN (Urea Nitrogen) 14 mg/dL (7.0-18.7); Calc. Creatinine Clearance 0 mL/min (70-130); Calcium 9.1 mg/dL (7.8-10.44); Chloride 102 mmol/L (98-107); Estimated GFR 50; Lipase 336 U/L (8-78); Potassium 4.2 mmol/L (3.5-5.1); Sodium 133 mmol/L (136-145)
[2022-10-10 11:47] LABS: BHCG - Serum Negative (NEGATIVE)
[2022-10-10 11:48] LABS: Pregs Control Background? CLEAR/WHITE (CLR/WHITE); Pregs Control Bar Appear? YES (CONTROL BAR)
[2022-10-10 12:04] LABS: Carbon Dioxide Less than 8 mmol/L (22-29); Glucose 403 mg/dL (70-105)
[2022-10-10] MEDS ORDERED: INSULIN REGULAR IN 0.9 % NACL 100 UNITS/100 ML BAG ONE (12:16)
[2022-10-10] MEDS ORDERED: Morphine 4 MG/ML VIAL ONE (12:16)
[2022-10-10 12:25] LABS: Phosphorus 3.5 mg/dL (2.3-4.7)
[2022-10-10 12:28] LABS: Magnesium 2.4 mg/dL (1.6-2.6)
[2022-10-10] MEDS ORDERED: Sodium Chloride 0.9% 1,000 ML IV PRN ×4 (12:51)
[2022-10-10] MEDS ORDERED: Acetaminophen 325 MG TAB PO PRN (12:51)
[2022-10-10] MEDS ORDERED: Dextrose 5 %-0.45 % NaCl 1,000 ML IV PRN (12:51)
[2022-10-10] MEDS ORDERED: Calcium Carbonate 500 MG ChewTAB PO PRN (12:51)
[2022-10-10] MEDS ORDERED: Senokot S 8.6-50 MG TAB PO PRN (12:51)
[2022-10-10] MEDS ORDERED: Dextrose 50% Abboject 50 ML SYRINGE SLOW IVP PRN (12:51)
[2022-10-10] MEDS ORDERED: Electrolyte Replacement Protocol 1 EACH IVPB SCH (12:51)
[2022-10-10] MEDS ORDERED: NS 0.9% w/ 20 MEQ KCL 1,000 ML IV PRN ×2 (12:51)
[2022-10-10 13:00] LABS: Acetaminophen Less than 10 mcg/mL (10.0-30.0); Alcohol Less than 10.0 mg/dL (Less than 10); Salicylate Less than 8.0 mg/dL (15.0-30.0)
[2022-10-10] MEDS ORDERED: HUMULIN R 100 UNITS in Sodium Chloride 0.9% 100 ML IVPB SCH (13:00)
[2022-10-10 13:54] LABS: BUN (Urea Nitrogen) 12 mg/dL (7.0-18.7); Calc. Creatinine Clearance 0 mL/min (70-130); Calcium 8.1 mg/dL (7.8-10.44); Chloride 112 mmol/L (98-107); Estimated GFR 60; Glucose 295 mg/dL (70-105); Sodium 138 mmol/L (136-145)
[2022-10-10 14:01] LABS: Carbon Dioxide Less than 8 mmol/L (22-29)
[2022-10-10] MEDS ORDERED: Dextrose 50% Abboject 50 ML SYRINGE ONE (14:51)
[2022-10-10] MEDS ORDERED: NS 0.9% w/ 20 MEQ KCL 0 ML ONE (14:52)
[2022-10-10] MEDS ORDERED: D5 1/2 NS w/20 mEq KCL 1,000 ML ONE (14:53)
[2022-10-10 15:11] LABS: Amphetamine Not Detected (NotDetected); Barbiturates Screen Not Detected (NotDetected); Benzodiazepine Screen Not Detected (NotDetected); Cocaine Metabolite Screen Not Detected (NotDetected); Methadone Not Detected (NotDetected); Methamphetamine Detected (NotDetected); Opiate Screen Not Detected (NotDetected); Oxycodone Screen Not Detected (NotDetected); Phencyclidine (PCP) Not Detected (NotDetected); THC/Cannabinoid Screen Not Detected (NotDetected); Tricyclic Screen Not Detected (NotDetected)
[2022-10-10] MEDS ORDERED: Pantoprazole 40 MG VIAL IVP SCH (17:15)
[2022-10-10 17:31] LABS: Base Excess -21.9 mEq/L (-2.0 to +3.0); Calcium, Ionized (venous) 1.03 mmol/L (1.16-1.32); Chloride (VBG) 112 mmol/L (98-106); Hematocrit-VBG 41 % (36.0-47.0); Hemoglobin (Hb) 13.8 g/dL (11.7-15.5); Potassium (VBG) 4.54 mmol/L (3.70-5.30); Sodium 140.8 mmol/L (133-146)
[2022-10-10 17:36] LABS: #Basophils 0.1 thou/uL (0.0-0.2); #Monocytes 0.6 thou/uL (0.11-0.59); #Neutrophils 11.4 thou/uL (1.40-6.50); %Basophils 0.4 % (0.0-1.0); %Lymphocytes 5.2 % (21.0-51.0); %Monocytes 4.6 % (0.0-10.0); %Neutrophils 89.2 % (42.0-75.0); Hemoglobin 12.8 g/dL (12.0-16.0); Mean Corpuscular Hemoglobin 27.8 pg (27.0-31.0); Platelet Count 422 10x3/uL (130-400); RBC Distribution Width 14.9 % (11.5-14.5); White Blood Cell (WBC) Count 12.8 10x3/uL (4.8-10.8)
[2022-10-10] MEDS: Nicotine 21 MG PATCH TD SCH (17:36)
[2022-10-10] MEDS: Ondansetron PF 4 MG/2 ML Vial IVP PRN (17:49)
[2022-10-10 17:55] LABS: BUN (Urea Nitrogen) 7 mg/dL (7.0-18.7); Calc. Creatinine Clearance 73 mL/min (70-130); Calcium 7.6 mg/dL (7.8-10.44); Chloride 113 mmol/L (98-107); Estimated GFR 66; Glucose 210 mg/dL (70-105); Potassium 4.3 mmol/L (3.5-5.1); Sodium 135 mmol/L (136-145)
[2022-10-10] MEDS ORDERED: Sodium Bicarbonate 150 MEQ in Dextrose 5% in Water 1,000 ML IV SCH (18:00)
[2022-10-10 18:01] LABS: Carbon Dioxide Less than 8 mmol/L (22-29)
[2022-10-10] MEDS ORDERED: Famotidine/PF 20 mg/2ml Vial SLOW IVP SCH (21:00)
[2022-10-10] MEDS: D5 1/2 NS w/20 mEq KCL 1,000 ML IV PRN (21:26)
[2022-10-10 22:31] LABS: Anion Gap 19 mmol/L (10-20); BUN (Urea Nitrogen) 5 mg/dL (7.0-18.7); Calc. Creatinine Clearance 86 mL/min (70-130); Calcium 7.8 mg/dL (7.8-10.44); Carbon Dioxide 8 mmol/L (22-29); Chloride 109 mmol/L (98-107); Estimated GFR 81; Glucose 197 mg/dL (70-105); Potassium 4.1 mmol/L (3.5-5.1); Sodium 132 mmol/L (136-145)
[2022-10-10] MEDS: Promethazine HCl 12.5 MG in Sodium Chloride 0.9% 50 ML IVPB PRN (23:08)
[2022-10-11] MEDS: Ondansetron PF 4 MG/2 ML Vial IVP PRN ×2 (00:44→12:52)
[2022-10-11] MEDS: D5 1/2 NS w/20 mEq KCL 1,000 ML IV PRN ×2 (01:27→05:26)
[2022-10-11 02:29] LABS: #Monocytes 0.6 thou/uL (0.11-0.59); #Neutrophils 8.9 thou/uL (1.40-6.50); %Basophils 0.1 % (0.0-1.0); %Lymphocytes 8.1 % (21.0-51.0); %Monocytes 5.8 % (0.0-10.0); %Neutrophils 85.7 % (42.0-75.0); Hemoglobin 13.8 g/dL (12.0-16.0); Mean Corpuscular HGB CONC 32.1 g/dL (32.0-36.0); Mean Corpuscular Hemoglobin 26.8 pg (27.0-31.0); Mean Platelet Volume 8.9 fL (7.4-10.4); Platelet Count 350 10x3/uL (130-400); RBC Distribution Width 14.8 % (11.5-14.5); Red Blood Cell (RBC) Count 5.15 mill/uL (4.20-5.40); White Blood Cell (WBC) Count 10.4 10x3/uL (4.8-10.8)
[2022-10-11 02:40] LABS: Mean Corpuscular Volume 83.5 fl (78.0-98.0)
[2022-10-11 02:59] LABS: ALT (SGPT) 16 U/L (8-55); AST (SGOT) 20 U/L (5-34); Albumin 4.1 g/dL (3.5-5.0); Alkaline Phosphatase 152 U/L (40-110); Anion Gap 15 mmol/L (10-20); BUN (Urea Nitrogen) 5 mg/dL (7.0-18.7); Bilirubin, Total 0.4 mg/dL (0.2-1.2); Calc. Creatinine Clearance 77 mL/min (70-130); Calcium 8.5 mg/dL (7.8-10.44); Carbon Dioxide 14 mmol/L (22-29); Chloride 108 mmol/L (98-107); Estimated GFR 70; Globulin 4.2 g/dL (2.4-3.5); Glucose 165 mg/dL (70-105); Magnesium 1.6 mg/dL (1.6-2.6); Potassium 3.2 mmol/L (3.5-5.1); Protein, Total 8.3 g/dL (6.0-8.3); Sodium 134 mmol/L (136-145)
[2022-10-11 03:04] LABS: Hemoglobin A1c 13.5 % (4.0-6.0)
[2022-10-11 03:05] LABS: Phosphorus Less than 1.0 mg/dL (2.3-4.7)
[2022-10-11 03:12] LABS: Lipase 2264 U/L (8-78)
[2022-10-11] MEDS ORDERED: Potassium Phosphate 30 MMOL in Sodium Chloride 0.9% 250 ML 250 ML IVPB SCH (03:30)
[2022-10-11] MEDS ORDERED: Morphine 2 MG/ML VIAL SLOW IVP SCH (03:30)
[2022-10-11] MEDS ORDERED: Magnesium 2 GM/50 ML(in water) 2 GM in Premix Bag 1 BAG IVPB SCH (04:00)
[2022-10-11 05:21] LABS: Cardiac Risk 4.6 (Less than 4.5)
[2022-10-11] MEDS: Promethazine HCl 12.5 MG in Sodium Chloride 0.9% 50 ML IVPB PRN (05:23)
[2022-10-11 06:53] LABS: Anion Gap 14 mmol/L (10-20); BUN (Urea Nitrogen) 4 mg/dL (7.0-18.7); Calc. Creatinine Clearance 108 mL/min (70-130); Calcium 7.6 mg/dL (7.8-10.44); Carbon Dioxide 15 mmol/L (22-29); Chloride 110 mmol/L (98-107); Estimated GFR 97; Glucose 193 mg/dL (70-105); Potassium 3.5 mmol/L (3.5-5.1); Sodium 135 mmol/L (136-145)
[2022-10-11] MEDS ORDERED: Dextrose 50% Abboject 50 ML SYRINGE SLOW IVP PRN (07:12)
[2022-10-11] MEDS ORDERED: Glucagon 1 MG/ML KIT IM PRN (07:12)
[2022-10-11] MEDS ORDERED: Dextrose 5% in Water 1,000 ML IV PRN (07:12)
[2022-10-11] MEDS ORDERED: Sodium Bicarb 50 MEQ/50 ML Abboject 8.4% SYRINGE IVP SCH (07:15)
[2022-10-11] MEDS ORDERED: Sodium Bicarb 50 MEQ/50 ML VIAL IVP SCH (07:30)
[2022-10-11 07:32] LABS: Actual Bicarbonate (HCO3v) 16.4 mEq/L (22-28); Base Excess -6.6 mEq/L (-2.0 to +3.0); Calcium, Ionized (venous) 0.98 mmol/L (1.16-1.32); Chloride (VBG) 110 mmol/L (98-106); Hematocrit-VBG 42 % (36.0-47.0); Hemoglobin (Hb) 14.4 g/dL (11.7-15.5); Potassium (VBG) 3.78 mmol/L (3.70-5.30); Sodium 138.1 mmol/L (133-146); pH (venous) 7.405 (7.32-7.43)
[2022-10-11 07:46] LABS: Lactic Acid 1.3 mmol/L (0.5-2.2)
[2022-10-11] MEDS ORDERED: Sodium Bicarbonate 150 MEQ in Dextrose 5% in Water 1,000 ML IV SCH (08:00)
[2022-10-11] MEDS: Pantoprazole 40 MG VIAL IVP SCH ×2 (08:51→19:36)
[2022-10-11] MEDS ORDERED: Insulin Glargine 30 UNITS/0.3 ML VIAL SC SCH (09:00)
[2022-10-11 09:24] VITALS: BMI 27.6
[2022-10-11 10:12] LABS: Anion Gap 11 mmol/L (10-20); BUN (Urea Nitrogen) Less than 4 mg/dL (7.0-18.7); Calc. Creatinine Clearance 119 mL/min (70-130); Calcium 7.5 mg/dL (7.8-10.44); Carbon Dioxide 22 mmol/L (22-29); Chloride 109 mmol/L (98-107); Estimated GFR 109; Glucose 200 mg/dL (70-105); Potassium 3.3 mmol/L (3.5-5.1); Sodium 139 mmol/L (136-145)
[2022-10-11] MEDS: HumaLOG 300 UNITS/3 ML VIAL SC PRN ×2 (12:48→16:13)
[2022-10-11] MEDS: Nicotine 21 MG PATCH TD SCH (12:48)
[2022-10-11] MEDS: Morphine 2 MG/ML VIAL SLOW IVP PRN ×2 (12:50→19:35)
[2022-10-11] MEDS ORDERED: Iopamidol-370 76% 500 ML MDV (1 ML CHARGE) ONE (12:53)
[2022-10-11] MEDS: Potassium Chloride 20 MEQ in Premix Bag 1 BAG IVPB SCH ×2 (13:45→15:32)
[2022-10-11] MEDS ORDERED: Potassium Chloride 20 MEQ TAB PO SCH (14:00)
[2022-10-11 18:35] LABS: Anion Gap 13 mmol/L (10-20); BUN (Urea Nitrogen) Less than 4 mg/dL (7.0-18.7); Calc. Creatinine Clearance 133 mL/min (70-130); Calcium 8.3 mg/dL (7.8-10.44); Carbon Dioxide 21 mmol/L (22-29); Chloride 109 mmol/L (98-107); Estimated GFR 122; Glucose 128 mg/dL (70-105); Potassium 3.5 mmol/L (3.5-5.1); Sodium 139 mmol/L (136-145)
[2022-10-11 20:57] LABS: Potassium 3.8 mmol/L (3.5-5.1)
[2022-10-11 22:40] LABS: Calcium 8.2 mg/dL (7.8-10.44); Chloride 108 mmol/L (98-107); Potassium 3.2 mmol/L (3.5-5.1); Sodium 138 mmol/L (136-145)
[2022-10-11 22:41] LABS: Glucose 179 mg/dL (70-105)
[2022-10-11 22:42] LABS: Anion Gap 12 mmol/L (10-20); Carbon Dioxide 21 mmol/L (22-29)
[2022-10-11 22:44] LABS: Calc. Creatinine Clearance 139 mL/min (70-130); Estimated GFR 123
[2022-10-11 22:45] LABS: BUN (Urea Nitrogen) Less than 4 mg/dL (7.0-18.7)
[2022-10-12] MEDS: Benzocaine/Menthol 1 LOZ LOZ PO PRN ×2 (00:45→12:32)
[2022-10-12] MEDS: HumaLOG 300 UNITS/3 ML VIAL SC PRN ×3 (01:28→19:33)
[2022-10-12] MEDS: Potassium Chloride 20 MEQ in Premix Bag 1 BAG IVPB SCH ×2 (03:16→05:37)
[2022-10-12] MEDS: Guaifenesin DM 100-10/5 ML UDCUP PO PRN (03:19)
[2022-10-12] MEDS: Morphine 2 MG/ML VIAL SLOW IVP PRN ×3 (03:52→18:58)
[2022-10-12] MEDS ORDERED: Potassium Chloride 40 MEQ in Sodium Chloride 0.45% 1,000 ML IV SCH (07:15)
[2022-10-12] MEDS: Insulin Glargine 30 UNITS/0.3 ML VIAL SC SCH (08:38)
[2022-10-12] MEDS: Pantoprazole 40 MG VIAL IVP SCH ×2 (08:40→21:20)
[2022-10-12 09:52] LABS: #Eosinphils 0.1 thou/uL (0.0-0.7); #Monocytes 0.4 thou/uL (0.11-0.59); #Neutrophils 3.2 thou/uL (1.40-6.50); %Basophils 0.7 % (0.0-1.0); %Eosinophils 1.6 % (0.0-10.0); %Lymphocytes 31.7 % (21.0-51.0); %Monocytes 7.9 % (0.0-10.0); %Neutrophils 57.9 % (42.0-75.0); Hemoglobin 12.4 g/dL (12.0-16.0); Mean Corpuscular HGB CONC 32.6 g/dL (32.0-36.0); Mean Corpuscular Hemoglobin 27.5 pg (27.0-31.0); Mean Corpuscular Volume 84.3 fl (78.0-98.0); Mean Platelet Volume 9.1 fL (7.4-10.4); Platelet Count 265 10x3/uL (130-400); RBC Distribution Width 15.6 % (11.5-14.5); Red Blood Cell (RBC) Count 4.51 mill/uL (4.20-5.40); White Blood Cell (WBC) Count 5.5 10x3/uL (4.8-10.8)
[2022-10-12 10:21] LABS: ALT (SGPT) 27 U/L (8-55); AST (SGOT) 55 U/L (5-34); Alkaline Phosphatase 126 U/L (40-110); Anion Gap 10 mmol/L (10-20); BUN (Urea Nitrogen) Less than 4 mg/dL (7.0-18.7); Bilirubin, Total 0.4 mg/dL (0.2-1.2); Calc. Creatinine Clearance 151 mL/min (70-130); Calcium 8.5 mg/dL (7.8-10.44); Carbon Dioxide 22 mmol/L (22-29); Chloride 110 mmol/L (98-107); Estimated GFR 125; Globulin 3.2 g/dL (2.4-3.5); Glucose 118 mg/dL (70-105); Lipase 731 U/L (8-78); Potassium 3.4 mmol/L (3.5-5.1); Protein, Total 6.2 g/dL (6.0-8.3); Sodium 139 mmol/L (136-145)
[2022-10-12 11:53] LABS: Actual Bicarbonate (HCO3v) 6.2 mEq/L (22-28)
[2022-10-12 11:54] LABS: Actual Bicarbonate (HCO3v) 6.6 mEq/L (22-28); pH (venous) 7.073 (7.32-7.43)
[2022-10-12] MEDS ORDERED: Potassium Chloride 20 MEQ TAB PO SCH (12:00)
[2022-10-12] MEDS: Nicotine 21 MG PATCH TD SCH (12:38)
[2022-10-12] MEDS: Potassium Chloride 40 MEQ in Sodium Chloride 0.45% 1,000 ML IV SCH (23:23)
[2022-10-13] MEDS: HumaLOG 300 UNITS/3 ML VIAL SC PRN ×4 (05:02→21:55)
[2022-10-13] MEDS: Insulin Glargine 30 UNITS/0.3 ML VIAL SC SCH (08:26)
[2022-10-13] MEDS: Pantoprazole 40 MG VIAL IVP SCH ×2 (08:29→21:56)
[2022-10-13 10:52] LABS: Anion Gap 15 mmol/L (10-20); BUN (Urea Nitrogen) Less than 4 mg/dL (7.0-18.7); Calc. Creatinine Clearance 135 mL/min (70-130); Calcium 9.3 mg/dL (7.8-10.44); Carbon Dioxide 21 mmol/L (22-29); Chloride 100 mmol/L (98-107); Estimated GFR 122; Glucose 190 mg/dL (70-105); Potassium 3.8 mmol/L (3.5-5.1); Sodium 132 mmol/L (136-145)
[2022-10-13] MEDS: Nicotine 21 MG PATCH TD SCH (12:48)
[2022-10-13] MEDS: Guaifenesin DM 100-10/5 ML UDCUP PO PRN (16:40)
[2022-10-13] MEDS ORDERED: Insulin Glargine 30 UNITS/0.3 ML VIAL SC SCH (21:00)
[2022-10-14 00:17] VITALS: BP 108/78; TEMP 98
[2022-10-14] MEDS: HumaLOG 300 UNITS/3 ML VIAL SC PRN (01:02)
[2022-10-14] MEDS: Guaifenesin DM 100-10/5 ML UDCUP PO PRN (01:07)
[2022-10-14] MEDS: Potassium Chloride 40 MEQ in Sodium Chloride 0.45% 1,000 ML IV SCH (02:26)
== END 2022-10-14 03:45 | disposition left against medical advice (07) | DRG 438 ==
LOC: SUATTDRO 10:20 → ERS 10:20 → IMCU/EMU 15:40 → T4-B 10-11 17:53
PROVIDERS: ADMIT Internal Medicine; ATTEND Internal Medicine Critical Care Medicine
DX: K85.90 Acute pancreatitis without necrosis or infection, unspecified (principal); E10.10 Type 1 diabetes mellitus with ketoacidosis without coma; G93.41 Metabolic encephalopathy; E87.1 Hypo-osmolality and hyponatremia; N17.9 Acute kidney failure, unspecified; E10.65 Type 1 diabetes mellitus with hyperglycemia; F15.10 Other stimulant abuse, uncomplicated; F10.10 Alcohol abuse, uncomplicated; D64.9 Anemia, unspecified; Z79.4 Long term (current) use of insulin; Z91.148 Patient's other noncompliance with medication regimen for other reason
CPT/HCPCS: 36415; 36416; 71045; 72193; 74170; 80048; 80053; 80061; 80306; 80307; 81001; 82010; 82805; 83036; 83605; 83690; 83735; 84100; 84703; 85025; 93005; C9113; J1790; J1815; J2270; J2272; J2405; J2550; J3475; J3480; J3490; J7050; J7070; J7999; Q9967

== ENCOUNTER 2022-11-24 10:29 | Inpatient (IN) | payer SELFPAY ==
[2022-11-24] MEDS ORDERED: Ondansetron PF 4 MG/2 ML Vial ONE (10:48)
[2022-11-24 11:10] LABS: Bacteria/HPF None Seen HPF (None Seen); Bilirubin Negative (Negative); Blood, Urine 2+ (Negative); CAUTI Indications for Culture Dysuria,urgency,freq; Clarity Clear (Clear); Glucose, Urine (Dipstick) Greater than 1000 mg/dL (Negative); Ketone, Urine 100 mg/dL (Negative); Leukocyte Negative Leu/uL (Negative); Nitrite Negative (Negative); Protein, Urine (Dipstick) Negative (Neg-Trace); RBC/HPF 0-3 HPF (0-3); Specific Gravity, Urine 1.031 (1.002-1.036); Squamous Epithelial 0-3 HPF (0-3); Urobilinogen Normal mg/dL (Less than 2); WBC/HPF 0-3 HPF (0-3)
[2022-11-24 11:11] LABS: Pregnancy Test - Urine (BHCG) Negative (Negative); Pregu Control Background? CLEAR/WHITE (CLR/WHITE); Pregu Control Bar Appear? YES (CONTROL BAR); Specific Gravity 1.031 (1.002-1.036)
[2022-11-24 11:12] LABS: Urine Culture Reflex No No
[2022-11-24 11:16] LABS: #Basophils 0.1 thou/uL (0.0-0.2); #Monocytes 0.4 thou/uL (0.11-0.59); #Neutrophils 12.4 thou/uL (1.40-6.50); %Basophils 0.6 % (0.0-1.0); %Lymphocytes 8.6 % (21.0-51.0); %Neutrophils 87.4 % (42.0-75.0); Hematocrit 39.7 % (36.0-47.0); Hemoglobin 12.9 g/dL (12.0-16.0); Mean Corpuscular HGB CONC 32.5 g/dL (32.0-36.0); Mean Corpuscular Hemoglobin 27.3 pg (27.0-31.0); Mean Corpuscular Volume 84.1 fl (78.0-98.0); Mean Platelet Volume 9.2 fL (7.4-10.4); Platelet Count 361 10x3/uL (130-400); RBC Distribution Width 13.9 % (11.5-14.5); Red Blood Cell (RBC) Count 4.72 mill/uL (4.20-5.40); White Blood Cell (WBC) Count 14.1 10x3/uL (4.8-10.8)
[2022-11-24 11:17] LABS: Base Excess -14.8 mEq/L (-2.0 to +3.0); Calcium, Ionized (venous) 1.03 mmol/L (1.16-1.32); Chloride (VBG) 105 mmol/L (98-106); Hematocrit-VBG 41 % (36.0-47.0); Hemoglobin (Hb) 13.9 g/dL (11.7-15.5); Potassium (VBG) 4.56 mmol/L (3.70-5.30); Sodium 139 mmol/L (133-146)
[2022-11-24 11:21] LABS: Actual Bicarbonate (HCO3v) 10.3 mEq/L (22-28)
[2022-11-24 11:44] LABS: ALT (SGPT) 15 U/L (8-55); AST (SGOT) 19 U/L (5-34); Albumin 4.2 g/dL (3.5-5.0); Alkaline Phosphatase 158 U/L (40-110); Anion Gap 31 mmol/L (10-20); BUN (Urea Nitrogen) 12 mg/dL (7.0-18.7); Bilirubin, Total 0.6 mg/dL (0.2-1.2); Calc. Creatinine Clearance 0 mL/min (70-130); Calcium 9.3 mg/dL (7.8-10.44); Carbon Dioxide 10 mmol/L (22-29); Chloride 102 mmol/L (98-107); Estimated GFR 92; Globulin 4.1 g/dL (2.4-3.5); Lipase 110 U/L (8-78); Potassium 4.4 mmol/L (3.5-5.1); Protein, Total 8.3 g/dL (6.0-8.3); Sodium 139 mmol/L (136-145)
[2022-11-24 11:46] LABS: Glucose 416 mg/dL (70-105)
[2022-11-24] MEDS ORDERED: Morphine 4 MG/ML VIAL ONE (11:53)
[2022-11-24] MEDS ORDERED: Metoclopramide HCl 10 MG/2 ML VIAL ONE (12:47)
[2022-11-24] MEDS ORDERED: INSULIN REGULAR IN 0.9 % NACL 100 UNITS/100 ML BAG ONE (12:47)
[2022-11-24] MEDS ORDERED: Acetaminophen 325 MG TAB PO PRN (13:12)
[2022-11-24] MEDS ORDERED: Dextrose 5 %-0.45 % NaCl 1,000 ML IV PRN (13:12)
[2022-11-24] MEDS ORDERED: Electrolyte Replacement Protocol 1 EACH IVPB SCH (13:12)
[2022-11-24] MEDS ORDERED: NS 0.9% w/ 20 MEQ KCL 1,000 ML IV PRN ×2 (13:12)
[2022-11-24] MEDS ORDERED: Sodium Chloride 0.9% 1,000 ML IV PRN ×4 (13:12)
[2022-11-24] MEDS ORDERED: Dextrose 50% Abboject 50 ML SYRINGE SLOW IVP PRN ×2 (13:12→13:15)
[2022-11-24] MEDS ORDERED: HUMULIN R 100 UNITS in Sodium Chloride 0.9% 100 ML IVPB SCH (13:15)
[2022-11-24] MEDS ORDERED: Glucagon 1 MG/ML KIT IM PRN (13:15)
[2022-11-24] MEDS ORDERED: Dextrose 5% in Water 1,000 ML IV PRN (13:15)
[2022-11-24 13:54] LABS: Alcohol Less than 10.0 mg/dL (Less than 10); BUN (Urea Nitrogen) 13 mg/dL (7.0-18.7); Calc. Creatinine Clearance 0 mL/min (70-130); Calcium 8.9 mg/dL (7.8-10.44); Chloride 107 mmol/L (98-107); Estimated GFR 93; Potassium 4.9 mmol/L (3.5-5.1); Sodium 139 mmol/L (136-145)
[2022-11-24 14:00] LABS: Phosphorus 3.8 mg/dL (2.3-4.7)
[2022-11-24 14:09] LABS: Glucose 409 mg/dL (70-105)
[2022-11-24 14:14] LABS: Carbon Dioxide Less than 8 mmol/L (22-29)
[2022-11-24 14:34] LABS: Lactic Acid 1.3 mmol/L (0.5-2.2)
[2022-11-24] MEDS ORDERED: NS 0.9% w/ 20 MEQ KCL 1,000 ML ONE (14:46)
[2022-11-24] MEDS: Morphine 2 MG/ML VIAL SLOW IVP PRN ×2 (15:19→20:42)
[2022-11-24 15:40] VITALS: BMI 25.6
[2022-11-24] MEDS ORDERED: FLU VACC QS2023-24(6MOS UP)/PF 60 MCG/0.5 ML SYRINGE IM ONE (16:00)
[2022-11-24 16:28] LABS: Amphetamine Not Detected (NotDetected); Barbiturates Screen Not Detected (NotDetected); Benzodiazepine Screen Not Detected (NotDetected); Cocaine Metabolite Screen Detected (NotDetected); Methadone Not Detected (NotDetected); Methamphetamine Not Detected (NotDetected); Opiate Screen Not Detected (NotDetected); Oxycodone Screen Not Detected (NotDetected); Phencyclidine (PCP) Not Detected (NotDetected); THC/Cannabinoid Screen Not Detected (NotDetected); Tricyclic Screen Not Detected (NotDetected)
[2022-11-24 17:18] LABS: Base Excess -21.5 mEq/L (-2.0 to +3.0); Calcium, Ionized (venous) 1.23 mmol/L (1.16-1.32); Chloride (VBG) 117 mmol/L (98-106); Hematocrit-VBG 38 % (36.0-47.0); Potassium (VBG) 5.18 mmol/L (3.70-5.30); Sodium 148 mmol/L (133-146)
[2022-11-24] MEDS: Ondansetron PF 4 MG/2 ML Vial IVP PRN (17:26)
[2022-11-24] MEDS ORDERED: Sodium Bicarb 50 MEQ/50 ML VIAL IVP SCH ×2 (17:30→23:30)
[2022-11-24 17:32] LABS: BUN (Urea Nitrogen) 13 mg/dL (7.0-18.7); Calc. Creatinine Clearance 89 mL/min (70-130); Calcium 8.9 mg/dL (7.8-10.44); Chloride 116 mmol/L (98-107); Estimated GFR 85; Glucose 121 mg/dL (70-105); Potassium 4.8 mmol/L (3.5-5.1); Sodium 143 mmol/L (136-145)
[2022-11-24 17:36] LABS: pH (venous) 7.064 (7.32-7.43)
[2022-11-24 17:37] LABS: Actual Bicarbonate (HCO3v) 7.3 mEq/L (22-28)
[2022-11-24 17:43] LABS: Carbon Dioxide Less than 8 mmol/L (22-29)
[2022-11-24] MEDS: Famotidine/PF 20 mg/2ml Vial SLOW IVP SCH (20:14)
[2022-11-24] MEDS: D5 1/2 NS w/20 mEq KCL 1,000 ML IV PRN (20:52)
[2022-11-24 22:27] LABS: Anion Gap 19 mmol/L (10-20); BUN (Urea Nitrogen) 8 mg/dL (7.0-18.7); Calc. Creatinine Clearance 82 mL/min (70-130); Calcium 8.4 mg/dL (7.8-10.44); Chloride 114 mmol/L (98-107); Estimated GFR 77; Glucose 248 mg/dL (70-105); Potassium 4.3 mmol/L (3.5-5.1); Sodium 138 mmol/L (136-145)
[2022-11-24 22:40] LABS: Carbon Dioxide 9 mmol/L (22-29)
[2022-11-24] MEDS: HYDROcodone/Acetaminophen 5/325 mg Tablet PO PRN (23:06)
[2022-11-25] MEDS: D5 1/2 NS w/20 mEq KCL 1,000 ML IV PRN ×4 (01:04→14:08)
[2022-11-25 01:47] LABS: Anion Gap 17 mmol/L (10-20); BUN (Urea Nitrogen) 7 mg/dL (7.0-18.7); Calc. Creatinine Clearance 93 mL/min (70-130); Calcium 8.2 mg/dL (7.8-10.44); Carbon Dioxide 16 mmol/L (22-29); Chloride 113 mmol/L (98-107); Estimated GFR 89; Glucose 156 mg/dL (70-105); Potassium 3.7 mmol/L (3.5-5.1); Sodium 142 mmol/L (136-145)
[2022-11-25 04:08] LABS: Base Excess -5.8 mEq/L (-2.0 to +3.0); Calcium, Ionized (venous) 1.11 mmol/L (1.16-1.32); Chloride (VBG) 111 mmol/L (98-106); Hematocrit-VBG 34 % (36.0-47.0); Hemoglobin (Hb) 11.6 g/dL (11.7-15.5); Potassium (VBG) 3.86 mmol/L (3.70-5.30); Sodium 142 mmol/L (133-146); pH (venous) 7.394 (7.32-7.43)
[2022-11-25] MEDS: HYDROcodone/Acetaminophen 5/325 mg Tablet PO PRN ×3 (04:16→14:06)
[2022-11-25 04:26] LABS: #Monocytes 0.5 thou/uL (0.11-0.59); #Neutrophils 6.4 thou/uL (1.40-6.50); %Basophils 0.4 % (0.0-1.0); %Eosinophils 0.3 % (0.0-10.0); %Lymphocytes 22.2 % (21.0-51.0); %Monocytes 5.9 % (0.0-10.0); %Neutrophils 70.9 % (42.0-75.0); Hematocrit 32.3 % (36.0-47.0); Hemoglobin 10.3 g/dL (12.0-16.0); Mean Corpuscular HGB CONC 31.9 g/dL (32.0-36.0); Mean Corpuscular Hemoglobin 27.1 pg (27.0-31.0); Mean Platelet Volume 9.1 fL (7.4-10.4); Platelet Count 305 10x3/uL (130-400); RBC Distribution Width 14.6 % (11.5-14.5)
[2022-11-25 04:38] LABS: Hemoglobin A1c 13.5 % (4.0-6.0)
[2022-11-25 04:46] LABS: Anion Gap 13 mmol/L (10-20); BUN (Urea Nitrogen) 7 mg/dL (7.0-18.7); Calc. Creatinine Clearance 97 mL/min (70-130); Calcium 8.2 mg/dL (7.8-10.44); Carbon Dioxide 17 mmol/L (22-29); Chloride 113 mmol/L (98-107); Estimated GFR 93; Glucose 146 mg/dL (70-105); Potassium 3.7 mmol/L (3.5-5.1); Sodium 139 mmol/L (136-145)
[2022-11-25] MEDS: Morphine 2 MG/ML VIAL SLOW IVP PRN ×2 (09:00→12:14)
[2022-11-25] MEDS: Ondansetron PF 4 MG/2 ML Vial IVP PRN ×3 (09:15→20:13)
[2022-11-25] MEDS: Famotidine/PF 20 mg/2ml Vial SLOW IVP SCH ×2 (09:32→20:13)
[2022-11-25] MEDS: Folic Acid 1 MG TAB PO SCH (09:33)
[2022-11-25] MEDS: Thiamine 100 MG TAB PO SCH (09:33)
[2022-11-25] MEDS ORDERED: Sodium Chloride 0.9% 1,000 ML IV SCH (11:30)
[2022-11-25] MEDS ORDERED: Fluconazole 100 MG TAB PO SCH (12:00)
[2022-11-25 13:20] LABS: Anion Gap 9 mmol/L (10-20); BUN (Urea Nitrogen) 5 mg/dL (7.0-18.7); Calc. Creatinine Clearance 110 mL/min (70-130); Calcium 8.2 mg/dL (7.8-10.44); Carbon Dioxide 20 mmol/L (22-29); Chloride 109 mmol/L (98-107); Estimated GFR 108; Glucose 179 mg/dL (70-105); Magnesium 1.7 mg/dL (1.6-2.6); Phosphorus 1.2 mg/dL (2.3-4.7); Potassium 3.4 mmol/L (3.5-5.1); Sodium 135 mmol/L (136-145)
[2022-11-25] MEDS ORDERED: Potassium Phosphate 30 MMOL in Sodium Chloride 0.9% 250 ML 250 ML IVPB SCH (13:30)
[2022-11-25] MEDS ORDERED: Magnesium 2 GM/50 ML(in water) 2 GM in Premix Bag 1 BAG IVPB SCH (14:00)
[2022-11-25] MEDS ORDERED: Insulin Glargine 30 UNITS/0.3 ML VIAL SC SCH (15:30)
[2022-11-25 17:01] LABS: Anion Gap 10 mmol/L (10-20); BUN (Urea Nitrogen) 4 mg/dL (7.0-18.7); Calc. Creatinine Clearance 118 mL/min (70-130); Calcium 7.9 mg/dL (7.8-10.44); Carbon Dioxide 20 mmol/L (22-29); Chloride 107 mmol/L (98-107); Estimated GFR 117; Glucose 170 mg/dL (70-105); Potassium 3.6 mmol/L (3.5-5.1); Sodium 133 mmol/L (136-145)
[2022-11-25] MEDS ORDERED: HumaLOG 300 UNITS/3 ML VIAL SC PRN (17:30)
[2022-11-26 04:08] LABS: Anion Gap 14 mmol/L (10-20); BUN (Urea Nitrogen) Less than 4 mg/dL (7.0-18.7); Calc. Creatinine Clearance 121 mL/min (70-130); Calcium 8.5 mg/dL (7.8-10.44); Carbon Dioxide 19 mmol/L (22-29); Chloride 105 mmol/L (98-107); Estimated GFR 121; Glucose 174 mg/dL (70-105); Potassium 3.7 mmol/L (3.5-5.1); Sodium 134 mmol/L (136-145)
[2022-11-26] MEDS: HumaLOG 300 UNITS/3 ML VIAL SC PRN ×3 (06:11→16:37)
[2022-11-26] MEDS: HYDROcodone/Acetaminophen 5/325 mg Tablet PO PRN ×2 (06:13→12:16)
[2022-11-26 07:43] VITALS: TEMP 97.4
[2022-11-26] MEDS ORDERED: Magnesium 2 GM/50 ML(in water) 2 GM in Premix Bag 1 BAG IVPB SCH (08:00)
[2022-11-26] MEDS: Ondansetron PF 4 MG/2 ML Vial IVP PRN ×2 (09:18→14:45)
[2022-11-26] MEDS: Thiamine 100 MG TAB PO SCH (09:18)
[2022-11-26] MEDS: Folic Acid 1 MG TAB PO SCH (09:18)
[2022-11-26] MEDS: Famotidine/PF 20 mg/2ml Vial SLOW IVP SCH (09:18)
[2022-11-26] MEDS ORDERED: Potassium Phosphate 15 MMOL in Sodium Chloride 0.9% 100 ML IVPB SCH (10:00)
== END 2022-11-26 17:45 | disposition home or self-care (01) | DRG 639 ==
LOC: ERS 10:29 → IMCU/EMU 13:16
PROVIDERS: ADMIT Family Medicine; ATTEND Internal Medicine
PROC: 4A133R1 Monitoring of Arterial Saturation, Peripheral, Percutaneous Approach (ICD-10-PCS; principal; 2022-11-24)
DX: E10.10 Type 1 diabetes mellitus with ketoacidosis without coma (principal); E87.6 Hypokalemia; E83.39 Other disorders of phosphorus metabolism; D64.9 Anemia, unspecified; F41.9 Anxiety disorder, unspecified; F32.A Depression, unspecified; F14.10 Cocaine abuse, uncomplicated; F10.10 Alcohol abuse, uncomplicated; Z71.41 Alcohol abuse counseling and surveillance of alcoholic; Z79.4 Long term (current) use of insulin; Z98.890 Other specified postprocedural states; Z83.3 Family history of diabetes mellitus
CPT/HCPCS: 36415; 36416; 71045; 80048; 80053; 80306; 80307; 81001; 81025; 82010; 82805; 83036; 83605; 83690; 83735; 84100; 85025; 93005; 96361; 96365; 96375; J1650; J1815; J2270; J2272; J2405; J2765; J3475; J3480; J3490; J7042; J7050; J7999; S0028

== ENCOUNTER 2022-11-27 16:38 | Inpatient (IN) | payer SELFPAY ==
[2022-11-27] MEDS ORDERED: diphenhydrAMINE 50 MG/ML VIAL ONE (17:06)
[2022-11-27] MEDS ORDERED: Metoclopramide HCl 10 MG/2 ML VIAL ONE (17:06)
[2022-11-27] MEDS ORDERED: Morphine 4 MG/ML VIAL ONE ×2 (17:06→19:08)
[2022-11-27 18:23] LABS: #Basophils 0.1 thou/uL (0.0-0.2); #Monocytes 0.4 thou/uL (0.11-0.59); #Neutrophils 4.8 thou/uL (1.40-6.50); %Basophils 1.1 % (0.0-1.0); %Eosinophils 0.4 % (0.0-10.0); %Lymphocytes 31.9 % (21.0-51.0); %Monocytes 5.2 % (0.0-10.0); %Neutrophils 59.9 % (42.0-75.0); Hematocrit 50.5 % (36.0-47.0); Hemoglobin 15.3 g/dL (12.0-16.0); Mean Corpuscular HGB CONC 30.3 g/dL (32.0-36.0); Mean Corpuscular Hemoglobin 27.7 pg (27.0-31.0); Mean Corpuscular Volume 91.3 fl (78.0-98.0); Mean Platelet Volume 9.3 fL (7.4-10.4); Platelet Count 359 10x3/uL (130-400); RBC Distribution Width 14.3 % (11.5-14.5); Red Blood Cell (RBC) Count 5.53 mill/uL (4.20-5.40); White Blood Cell (WBC) Count 7.9 10x3/uL (4.8-10.8)
[2022-11-27 18:27] LABS: Bilirubin Negative (Negative); Blood, Urine 1+ (Negative); CAUTI Indications for Culture Dysuria,urgency,freq; Clarity Clear (Clear); Glucose, Urine (Dipstick) Greater than 1000 mg/dL (Negative); Ketone, Urine Greater than 150 mg/dL (Negative); Leukocyte Negative Leu/uL (Negative); Nitrite Negative (Negative); Protein, Urine (Dipstick) 20 mg/dL (Neg-Trace); Specific Gravity, Urine 1.026 (1.002-1.036); Squamous Epithelial 0-3 HPF (0-3); Urobilinogen Normal mg/dL (Less than 2)
[2022-11-27 18:38] LABS: Bacteria/HPF 1+ HPF (None Seen)
[2022-11-27 18:39] LABS: Urine Culture Reflex No No
[2022-11-27 19:02] LABS: ALT (SGPT) 18 U/L (8-55); AST (SGOT) 18 U/L (5-34); Albumin 4.8 g/dL (3.5-5.0); Alkaline Phosphatase 167 U/L (40-110); Anion Gap 31 mmol/L (10-20); BUN (Urea Nitrogen) 8 mg/dL (7.0-18.7); Bilirubin, Total 0.5 mg/dL (0.2-1.2); Calc. Creatinine Clearance 0 mL/min (70-130); Calcium 9.8 mg/dL (7.8-10.44); Carbon Dioxide 8 mmol/L (22-29); Chloride 100 mmol/L (98-107); Estimated GFR 68; Globulin 4.5 g/dL (2.4-3.5); Glucose 504 mg/dL (70-105); Lipase 70 U/L (8-78); Magnesium 2.3 mg/dL (1.6-2.6); Potassium 4.6 mmol/L (3.5-5.1); Protein, Total 9.3 g/dL (6.0-8.3); Sodium 134 mmol/L (136-145)
[2022-11-27 19:13] LABS: BHCG - Serum Negative (NEGATIVE); Pregs Control Background? CLEAR/WHITE (CLR/WHITE); Pregs Control Bar Appear? YES (CONTROL BAR)
[2022-11-27 19:14] LABS: Troponin I Less than 0.010 ng/mL (< 0.028)
[2022-11-27] MEDS ORDERED: INSULIN REGULAR IN 0.9 % NACL 100 UNITS/100 ML BAG ONE (19:21)
[2022-11-27] MEDS ORDERED: Sodium Chloride 0.9% 1,000 ML IV PRN ×4 (19:56)
[2022-11-27] MEDS ORDERED: Dextrose 5 %-0.45 % NaCl 1,000 ML IV PRN (19:56)
[2022-11-27] MEDS ORDERED: Electrolyte Replacement Protocol 1 EACH IVPB SCH (19:56)
[2022-11-27] MEDS ORDERED: NS 0.9% w/ 20 MEQ KCL 1,000 ML IV PRN ×2 (19:56)
[2022-11-27] MEDS ORDERED: Dextrose 50% Abboject 50 ML SYRINGE SLOW IVP PRN (19:56)
[2022-11-27] MEDS ORDERED: Acetaminophen 325 MG TAB PO PRN ×2 (19:56→20:00)
[2022-11-27] MEDS ORDERED: Pantoprazole 40 MG VIAL ONE (19:59)
[2022-11-27] MEDS ORDERED: Ondansetron ODT 4 MG TAB SL PRN (20:00)
[2022-11-27] MEDS ORDERED: HUMULIN R 100 UNITS in Sodium Chloride 0.9% 100 ML IVPB SCH (20:00)
[2022-11-27] MEDS ORDERED: Ondansetron PF 4 MG/2 ML Vial IVP PRN (20:00)
[2022-11-27 20:37] LABS: Amphetamine Not Detected (NotDetected); Barbiturates Screen Not Detected (NotDetected); Benzodiazepine Screen Not Detected (NotDetected); Cocaine Metabolite Screen Not Detected (NotDetected); Methadone Not Detected (NotDetected); Methamphetamine Not Detected (NotDetected); Opiate Screen Detected (NotDetected); Oxycodone Screen Not Detected (NotDetected); Phencyclidine (PCP) Not Detected (NotDetected); THC/Cannabinoid Screen Not Detected (NotDetected); Tricyclic Screen Not Detected (NotDetected)
[2022-11-27] MEDS ORDERED: Morphine 2 MG/ML VIAL SLOW IVP SCH (21:45)
[2022-11-27] MEDS: Promethazine HCl 12.5 MG in Sodium Chloride 0.9% 50 ML IVPB PRN (21:49)
[2022-11-27 22:29] LABS: Base Excess -23.9 mEq/L (-2.0 to +3.0); Calcium, Ionized (venous) 1.12 mmol/L (1.16-1.32); Chloride (VBG) 110 mmol/L (98-106); Hematocrit-VBG 43 % (36.0-47.0); Hemoglobin (Hb) 14.7 g/dL (11.7-15.5); Sodium 144 mmol/L (133-146)
[2022-11-27 23:07] LABS: BUN (Urea Nitrogen) 8 mg/dL (7.0-18.7); Calc. Creatinine Clearance 80 mL/min (70-130); Calcium 9.1 mg/dL (7.8-10.44); Chloride 112 mmol/L (98-107); Estimated GFR 76; Glucose 258 mg/dL (70-105); Magnesium 2.2 mg/dL (1.6-2.6); Potassium 4.7 mmol/L (3.5-5.1); Sodium 140 mmol/L (136-145)
[2022-11-27 23:10] LABS: Troponin I Less than 0.010 ng/mL (< 0.028)
[2022-11-27 23:12] LABS: Carbon Dioxide Less than 8 mmol/L (22-29)
[2022-11-27] MEDS: D5 1/2 NS w/20 mEq KCL 1,000 ML IV PRN (23:21)
[2022-11-28] MEDS: Ondansetron PF 4 MG/2 ML Vial IVP PRN ×2 (00:26→19:30)
[2022-11-28] MEDS ORDERED: Sodium Bicarb 50 MEQ/50 ML VIAL IVP SCH (01:00)
[2022-11-28] MEDS ORDERED: Metoclopramide HCl 10 MG/2 ML VIAL IVP SCH (01:00)
[2022-11-28] MEDS: Morphine 2 MG/ML VIAL SLOW IVP PRN ×2 (01:48→09:43)
[2022-11-28] MEDS: D5 1/2 NS w/20 mEq KCL 1,000 ML IV PRN (03:15)
[2022-11-28] MEDS: Promethazine HCl 12.5 MG in Sodium Chloride 0.9% 50 ML IVPB PRN (04:35)
[2022-11-28 04:49] LABS: Base Excess -15.8 mEq/L (-2.0 to +3.0); Chloride (VBG) 112 mmol/L (98-106); Hematocrit-VBG 41 % (36.0-47.0); Hemoglobin (Hb) 14.1 g/dL (11.7-15.5); Sodium 143 mmol/L (133-146); pH (venous) 7.243 (7.32-7.43)
[2022-11-28 04:50] LABS: Actual Bicarbonate (HCO3v) 9.4 mEq/L (22-28)
[2022-11-28 04:53] LABS: #Basophils 0.1 thou/uL (0.0-0.2); #Monocytes 0.3 thou/uL (0.11-0.59); #Neutrophils 6.3 thou/uL (1.40-6.50); %Basophils 0.6 % (0.0-1.0); %Eosinophils 0.1 % (0.0-10.0); %Lymphocytes 23.3 % (21.0-51.0); %Monocytes 3.6 % (0.0-10.0); %Neutrophils 71.3 % (42.0-75.0); Mean Corpuscular Hemoglobin 26.8 pg (27.0-31.0); Mean Platelet Volume 8.6 fL (7.4-10.4); Platelet Count 326 10x3/uL (130-400); RBC Distribution Width 14.5 % (11.5-14.5); Red Blood Cell (RBC) Count 4.85 mill/uL (4.20-5.40); White Blood Cell (WBC) Count 8.8 10x3/uL (4.8-10.8)
[2022-11-28 05:23] LABS: Phosphorus 1.6 mg/dL (2.3-4.7)
[2022-11-28 05:25] LABS: Anion Gap 18 mmol/L (10-20); BUN (Urea Nitrogen) 5 mg/dL (7.0-18.7); Calc. Creatinine Clearance 77 mL/min (70-130); Calcium 8.9 mg/dL (7.8-10.44); Carbon Dioxide 10 mmol/L (22-29); Chloride 113 mmol/L (98-107); Estimated GFR 73; Glucose 238 mg/dL (70-105); Magnesium 1.9 mg/dL (1.6-2.6); Potassium 4.2 mmol/L (3.5-5.1); Sodium 137 mmol/L (136-145)
[2022-11-28 05:37] LABS: Mean Corpuscular Volume 86.6 fl (78.0-98.0)
[2022-11-28] MEDS ORDERED: Magnesium 2 GM/50 ML(in water) 2 GM in Premix Bag 1 BAG IVPB SCH (08:00)
[2022-11-28] MEDS ORDERED: Potassium Phosphate 15 MMOL in Sodium Chloride 0.9% 100 ML IVPB SCH (08:00)
[2022-11-28 08:43] VITALS: BMI 26.2
[2022-11-28] MEDS ORDERED: FLU VACC QS2023-24(6MOS UP)/PF 60 MCG/0.5 ML SYRINGE IM ONE (09:00)
[2022-11-28 11:10] LABS: Base Excess -9.9 mEq/L (-2.0 to +3.0); Calcium, Ionized (venous) 1.15 mmol/L (1.16-1.32); Chloride (VBG) 112 mmol/L (98-106); Hematocrit-VBG 40 % (36.0-47.0); Hemoglobin (Hb) 13.5 g/dL (11.7-15.5); Potassium (VBG) 3.99 mmol/L (3.70-5.30); Sodium 140 mmol/L (133-146); pH (venous) 7.316 (7.32-7.43)
[2022-11-28 11:12] LABS: Actual Bicarbonate (HCO3v) 14.9 mEq/L (22-28)
[2022-11-28 11:44] LABS: Magnesium 2.6 mg/dL (1.6-2.6)
[2022-11-28 11:47] LABS: Anion Gap 14 mmol/L (10-20); BUN (Urea Nitrogen) 5 mg/dL (7.0-18.7); Calc. Creatinine Clearance 100 mL/min (70-130); Calcium 8.5 mg/dL (7.8-10.44); Carbon Dioxide 14 mmol/L (22-29); Chloride 114 mmol/L (98-107); Estimated GFR 98; Glucose 124 mg/dL (70-105); Phosphorus 2.5 mg/dL (2.3-4.7); Potassium 3.9 mmol/L (3.5-5.1); Sodium 138 mmol/L (136-145)
[2022-11-28] MEDS: Metoclopramide HCl 10 MG/2 ML VIAL IVP SCH ×2 (13:40→23:40)
[2022-11-28 17:54] LABS: Anion Gap 11 mmol/L (10-20); BUN (Urea Nitrogen) 4 mg/dL (7.0-18.7); Calc. Creatinine Clearance 99 mL/min (70-130); Calcium 8.7 mg/dL (7.8-10.44); Carbon Dioxide 16 mmol/L (22-29); Chloride 110 mmol/L (98-107); Estimated GFR 97; Glucose 190 mg/dL (70-105); Potassium 3.7 mmol/L (3.5-5.1); Sodium 133 mmol/L (136-145)
[2022-11-28] MEDS ORDERED: Dextrose 50% Abboject 50 ML SYRINGE SLOW IVP PRN (18:00)
[2022-11-28] MEDS ORDERED: HumaLOG 300 UNITS/3 ML VIAL SC PRN (18:00)
[2022-11-28] MEDS ORDERED: Glucagon 1 MG/ML KIT IM PRN (18:00)
[2022-11-28] MEDS ORDERED: Dextrose 5% in Water 1,000 ML IV PRN (18:00)
[2022-11-28] MEDS: Lactated Ringer's 1,000 ML IV SCH (18:28)
[2022-11-28] MEDS: Insulin Glargine 30 UNITS/0.3 ML VIAL SC SCH (18:29)
[2022-11-28] MEDS ORDERED: Promethazine HCl 12.5 MG in Sodium Chloride 0.9% 50 ML IVPB SCH (20:30)
[2022-11-28 21:44] LABS: Anion Gap 14 mmol/L (10-20); BUN (Urea Nitrogen) Less than 4 mg/dL (7.0-18.7); Calc. Creatinine Clearance 104 mL/min (70-130); Calcium 8.5 mg/dL (7.8-10.44); Carbon Dioxide 12 mmol/L (22-29); Chloride 111 mmol/L (98-107); Estimated GFR 103; Glucose 241 mg/dL (70-105); Potassium 4.1 mmol/L (3.5-5.1); Sodium 133 mmol/L (136-145)
[2022-11-29] MEDS: Lactated Ringer's 1,000 ML IV SCH ×2 (03:48→16:05)
[2022-11-29] MEDS: Morphine 2 MG/ML VIAL SLOW IVP PRN ×2 (03:48→17:00)
[2022-11-29] MEDS ORDERED: diphenhydrAMINE 50 MG/ML VIAL IVP SCH (04:45)
[2022-11-29] MEDS: Metoclopramide HCl 10 MG/2 ML VIAL IVP SCH (04:57)
[2022-11-29] MEDS: HumaLOG 300 UNITS/3 ML VIAL SC PRN ×2 (05:57→16:54)
[2022-11-29 07:02] LABS: #Eosinphils 0.1 thou/uL (0.0-0.7); #Monocytes 0.2 thou/uL (0.11-0.59); #Neutrophils 2.3 thou/uL (1.40-6.50); %Basophils 0.7 % (0.0-1.0); %Eosinophils 3.2 % (0.0-10.0); %Lymphocytes 37.3 % (21.0-51.0); %Monocytes 5.3 % (0.0-10.0); Hematocrit 36.8 % (36.0-47.0); Hemoglobin 11.6 g/dL (12.0-16.0); Mean Corpuscular HGB CONC 31.5 g/dL (32.0-36.0); Mean Corpuscular Hemoglobin 27.4 pg (27.0-31.0); Mean Corpuscular Volume 86.8 fl (78.0-98.0); Platelet Count 266 10x3/uL (130-400); RBC Distribution Width 14.6 % (11.5-14.5); Red Blood Cell (RBC) Count 4.24 mill/uL (4.20-5.40); White Blood Cell (WBC) Count 4.3 10x3/uL (4.8-10.8)
[2022-11-29 08:17] LABS: ALT (SGPT) 11 U/L (8-55); AST (SGOT) 15 U/L (5-34); Albumin 3.4 g/dL (3.5-5.0); Alkaline Phosphatase 120 U/L (40-110); Anion Gap 13 mmol/L (10-20); BUN (Urea Nitrogen) 4 mg/dL (7.0-18.7); Bilirubin, Total 0.3 mg/dL (0.2-1.2); Calc. Creatinine Clearance 100 mL/min (70-130); Calcium 8.6 mg/dL (7.8-10.44); Carbon Dioxide 17 mmol/L (22-29); Chloride 107 mmol/L (98-107); Estimated GFR 98; Globulin 3.1 g/dL (2.4-3.5); Glucose 361 mg/dL (70-105); Magnesium 1.7 mg/dL (1.6-2.6); Potassium 3.4 mmol/L (3.5-5.1); Protein, Total 6.5 g/dL (6.0-8.3); Sodium 134 mmol/L (136-145)
[2022-11-29] MEDS ORDERED: Magnesium 2 GM/50 ML(in water) 2 GM in Premix Bag 1 BAG IVPB SCH (09:00)
[2022-11-29] MEDS ORDERED: Potassium Chloride 20 MEQ TAB PO SCH (09:00)
[2022-11-29] MEDS: Insulin Glargine 30 UNITS/0.3 ML VIAL SC SCH ×2 (09:19→20:56)
[2022-11-29 11:25] LABS: Actual Bicarbonate (HCO3v) 5.5 mEq/L (22-28); pH (venous) 7.024 (7.32-7.43)
[2022-11-29] MEDS: Ondansetron PF 4 MG/2 ML Vial IVP PRN (16:54)
[2022-11-30] MEDS: Lactated Ringer's 1,000 ML IV SCH ×2 (01:22→12:50)
[2022-11-30 05:06] VITALS: TEMP 98.1
[2022-11-30 05:18] LABS: #Eosinphils 0.2 thou/uL (0.0-0.7); #Monocytes 0.3 thou/uL (0.11-0.59); #Neutrophils 1.5 thou/uL (1.40-6.50); %Basophils 0.8 % (0.0-1.0); %Lymphocytes 50.3 % (21.0-51.0); %Monocytes 7.8 % (0.0-10.0); %Neutrophils 36.6 % (42.0-75.0); Hematocrit 36.9 % (36.0-47.0); Hemoglobin 11.8 g/dL (12.0-16.0); Mean Corpuscular Hemoglobin 27.2 pg (27.0-31.0); Mean Platelet Volume 8.9 fL (7.4-10.4); Platelet Count 278 10x3/uL (130-400); RBC Distribution Width 14.5 % (11.5-14.5); Red Blood Cell (RBC) Count 4.34 mill/uL (4.20-5.40)
[2022-11-30] MEDS: HumaLOG 300 UNITS/3 ML VIAL SC PRN (05:39)
[2022-11-30 05:52] LABS: Anion Gap 11 mmol/L (10-20); BUN (Urea Nitrogen) 4 mg/dL (7.0-18.7); Calc. Creatinine Clearance 133 mL/min (70-130); Calcium 8.7 mg/dL (7.8-10.44); Carbon Dioxide 24 mmol/L (22-29); Chloride 105 mmol/L (98-107); Estimated GFR 124; Glucose 217 mg/dL (70-105); Phosphorus 2.8 mg/dL (2.3-4.7); Potassium 3.7 mmol/L (3.5-5.1); Sodium 136 mmol/L (136-145)
[2022-11-30] MEDS: Insulin Glargine 30 UNITS/0.3 ML VIAL SC SCH (08:53)
[2022-11-30] MEDS ORDERED: Insulin Glargine 30 UNITS/0.3 ML VIAL SC SCH ×2 (10:07→10:15)
[2022-11-30 12:31] VITALS: BP 106/70
[2022-12-01] MEDS ORDERED: Insulin Glargine 30 UNITS/0.3 ML VIAL SC SCH (09:00)
== END 2022-11-30 13:18 | disposition home or self-care (01) | DRG 638 ==
LOC: ERS 16:38 → IMCU/EMU 19:59 → T4-A 11-29 16:52
PROVIDERS: ADMIT Internal Medicine; ATTEND Internal Medicine
PROC: 4A133R1 Monitoring of Arterial Saturation, Peripheral, Percutaneous Approach (ICD-10-PCS; principal; 2022-11-27)
DX: E10.10 Type 1 diabetes mellitus with ketoacidosis without coma (principal); N17.9 Acute kidney failure, unspecified; F41.9 Anxiety disorder, unspecified; F32.A Depression, unspecified; F14.10 Cocaine abuse, uncomplicated; E10.43 Type 1 diabetes mellitus with diabetic autonomic (poly)neuropathy; K31.84 Gastroparesis; D64.9 Anemia, unspecified; Z79.899 Other long term (current) drug therapy; Z79.4 Long term (current) use of insulin; Z98.890 Other specified postprocedural states; Z87.891 Personal history of nicotine dependence
CPT/HCPCS: 36415; 36416; 71045; 80048; 80053; 80306; 81001; 82010; 82805; 83605; 83690; 83735; 84100; 84484; 84703; 85025; 90471; 90686; 93005; 96365; 96366; 96367; 96374; 96375; 96376; C9113; G0008; J1200; J1650; J1815; J2270; J2272; J2405; J2550; J2765; J3475; J3480; J3490; J7120

== ENCOUNTER 2022-12-03 17:27 | Inpatient (IN) | payer SELFPAY ==
[2022-12-03] MEDS ORDERED: Morphine 4 MG/ML VIAL ONE (18:00)
[2022-12-03] MEDS ORDERED: Haloperidol Lactate 5 MG/ML VIAL ONE (18:01)
[2022-12-03] MEDS ORDERED: diphenhydrAMINE 50 MG/ML VIAL ONE (18:01)
[2022-12-03 18:23] LABS: #Basophils 0.1 thou/uL (0.0-0.2); #Monocytes 0.4 thou/uL (0.11-0.59); #Neutrophils 12.3 thou/uL (1.40-6.50); %Basophils 0.7 % (0.0-1.0); %Eosinophils 0.1 % (0.0-10.0); %Lymphocytes 14.2 % (21.0-51.0); %Monocytes 2.5 % (0.0-10.0); %Neutrophils 81.6 % (42.0-75.0); Hematocrit 44.2 % (36.0-47.0); Hemoglobin 13.8 g/dL (12.0-16.0); Mean Corpuscular HGB CONC 31.2 g/dL (32.0-36.0); Mean Corpuscular Hemoglobin 27.3 pg (27.0-31.0); Mean Corpuscular Volume 87.5 fl (78.0-98.0); Mean Platelet Volume 9.3 fL (7.4-10.4); Platelet Count 441 10x3/uL (130-400); Red Blood Cell (RBC) Count 5.05 mill/uL (4.20-5.40); White Blood Cell (WBC) Count 15.1 10x3/uL (4.8-10.8)
[2022-12-03 18:26] LABS: Bilirubin Negative (Negative); Blood, Urine Negative (Negative); Clarity Hazy (Clear); Glucose, Urine (Dipstick) 500 mg/dL (Negative); Ketone, Urine > or equal to 80 mg/dL (Negative); Leukocyte Negative (Negative); Nitrite Negative (Negative); Protein, Urine (Dipstick) Negative (Neg-Trace); Specific Gravity, Urine 1.025 (1.005-1.030); Urobilinogen 0.2 mg/dL (Less than 2)
[2022-12-03 18:29] LABS: Base Excess -21.9 mEq/L (-2.0 to +3.0); Calcium, Ionized (venous) 1.28 mmol/L (1.16-1.32); Chloride (VBG) 96 mmol/L (98-106); Hematocrit-VBG 43 % (36.0-47.0); Hemoglobin (Hb) 14.7 g/dL (11.7-15.5); Potassium (VBG) 5.75 mmol/L (3.70-5.30); Sodium 137 mmol/L (133-146)
[2022-12-03 18:30] LABS: Actual Bicarbonate (HCO3v) 7.8 mEq/L (22-28)
[2022-12-03 18:33] LABS: Amphetamine Not Detected (NotDetected); Barbiturates Screen Not Detected (NotDetected); Benzodiazepine Screen Not Detected (NotDetected); Cocaine Metabolite Screen Detected (NotDetected); Methadone Not Detected (NotDetected); Methamphetamine Not Detected (NotDetected); Opiate Screen Not Detected (NotDetected); Oxycodone Screen Not Detected (NotDetected); Phencyclidine (PCP) Not Detected (NotDetected); THC/Cannabinoid Screen Not Detected (NotDetected); Tricyclic Screen Not Detected (NotDetected)
[2022-12-03 18:34] LABS: Bacteria/HPF Rare-Few HPF (None Seen); CAUTI Indications for Culture Pelvic or flank pain; RBC/HPF None Seen HPF (0-3); WBC/HPF None Seen HPF (0-3)
[2022-12-03 18:35] LABS: Urine Culture Reflex No No
[2022-12-03 18:36] LABS: BHCG - Serum Negative (NEGATIVE); Pregs Control Background? CLEAR/WHITE (CLR/WHITE); Pregs Control Bar Appear? YES (CONTROL BAR)
[2022-12-03 18:50] LABS: ALT (SGPT) 16 U/L (8-55); AST (SGOT) 22 U/L (5-34); Albumin 4.9 g/dL (3.5-5.0); Alkaline Phosphatase 174 U/L (40-110); Anion Gap 36 mmol/L (10-20); BUN (Urea Nitrogen) 16 mg/dL (7.0-18.7); Bilirubin, Total 0.5 mg/dL (0.2-1.2); CK (CPK) 51 U/L (29-168); Calc. Creatinine Clearance 0 mL/min (70-130); Calcium 9.9 mg/dL (7.8-10.44); Chloride 94 mmol/L (98-107); Estimated GFR 53; Globulin 4.3 g/dL (2.4-3.5); Lipase 80 U/L (8-78); Potassium 5.8 mmol/L (3.5-5.1); Protein, Total 9.2 g/dL (6.0-8.3); Sodium 133 mmol/L (136-145)
[2022-12-03 18:51] LABS: Acetaminophen Less than 10 mcg/mL (10.0-30.0); Alcohol Less than 10.0 mg/dL (Less than 10); Salicylate Less than 8.0 mg/dL (15.0-30.0)
[2022-12-03 18:56] LABS: Troponin I Less than 0.010 ng/mL (< 0.028)
[2022-12-03] MEDS ORDERED: Sodium Bicarb 50 MEQ/50 ML VIAL ONE (18:58)
[2022-12-03 19:02] LABS: Carbon Dioxide 9 mmol/L (22-29); Glucose 667 mg/dL (70-105)
[2022-12-03] MEDS ORDERED: KCL IV SCH (19:30)
[2022-12-03] MEDS ORDERED: D5 IV SCH (19:30)
[2022-12-03] MEDS ORDERED: SODIUM BICARBONATE IV SCH (19:30)
[2022-12-03] MEDS ORDERED: 1/2 NS W IV SCH (19:30)
[2022-12-03] MEDS ORDERED: Electrolyte Replacement Protocol 1 EACH IVPB SCH (19:33)
[2022-12-03] MEDS ORDERED: Dextrose 50% Abboject 50 ML SYRINGE SLOW IVP PRN (19:33)
[2022-12-03] MEDS ORDERED: D5 1/2 NS w/20 mEq KCL 1,000 ML IV PRN (19:33)
[2022-12-03] MEDS ORDERED: NS 0.9% w/ 20 MEQ KCL 1,000 ML IV PRN ×2 (19:33)
[2022-12-03] MEDS ORDERED: Sodium Chloride 0.9% 1,000 ML IV PRN ×4 (19:33)
[2022-12-03] MEDS ORDERED: Dextrose 5 %-0.45 % NaCl 1,000 ML IV PRN (19:33)
[2022-12-03] MEDS ORDERED: Ondansetron ODT 4 MG TAB PO PRN (19:34)
[2022-12-03] MEDS ORDERED: Acetaminophen 325 MG TAB PO PRN (19:34)
[2022-12-03] MEDS ORDERED: Senokot S 8.6-50 MG TAB PO PRN (19:34)
[2022-12-03] MEDS ORDERED: Calcium Carbonate 500 MG ChewTAB PO PRN (19:34)
[2022-12-03] MEDS ORDERED: HUMULIN R 100 UNITS in Sodium Chloride 0.9% 100 ML IVPB SCH (19:45)
[2022-12-03 20:47] VITALS: BMI 23.8
[2022-12-03] MEDS ORDERED: Magnesium 2 GM/50 ML(in water) 2 GM in Premix Bag 1 BAG IVPB SCH (21:30)
[2022-12-03 22:02] LABS: Anion Gap 31 mmol/L (10-20); BUN (Urea Nitrogen) 16 mg/dL (7.0-18.7); Calc. Creatinine Clearance 63 mL/min (70-130); Calcium 8.6 mg/dL (7.8-10.44); Chloride 103 mmol/L (98-107); Estimated GFR 61; Magnesium 2.3 mg/dL (1.6-2.6); Phosphorus 4.4 mg/dL (2.3-4.7); Potassium 5.4 mmol/L (3.5-5.1); Sodium 137 mmol/L (136-145)
[2022-12-03 22:05] LABS: Carbon Dioxide 8 mmol/L (22-29); Glucose 570 mg/dL (70-105)
[2022-12-03] MEDS: Famotidine 20 MG TAB PO SCH (22:27)
[2022-12-03] MEDS ORDERED: Sodium Bicarb 50 MEQ/50 ML VIAL IVP SCH (22:30)
[2022-12-03 23:41] LABS: Glucose 465 mg/dL (70-105)
[2022-12-04 01:19] LABS: Base Excess -16.5 mEq/L (-2.0 to +3.0); Calcium, Ionized (venous) 1.14 mmol/L (1.16-1.32); Chloride (VBG) 110 mmol/L (98-106); Hematocrit-VBG 37 % (36.0-47.0); Hemoglobin (Hb) 12.7 g/dL (11.7-15.5); Potassium (VBG) 4.23 mmol/L (3.70-5.30); Sodium 148 mmol/L (133-146); pH (venous) 7.198 (7.32-7.43)
[2022-12-04 01:45] LABS: Anion Gap 25 mmol/L (10-20); BUN (Urea Nitrogen) 12 mg/dL (7.0-18.7); Calc. Creatinine Clearance 79 mL/min (70-130); Calcium 7.8 mg/dL (7.8-10.44); Carbon Dioxide 10 mmol/L (22-29); Chloride 113 mmol/L (98-107); Estimated GFR 80; Glucose 281 mg/dL (70-105); Potassium 4.2 mmol/L (3.5-5.1); Sodium 144 mmol/L (136-145)
[2022-12-04 03:35] LABS: Calcium 7.5 mg/dL (7.8-10.44); Chloride 118 mmol/L (98-107); Potassium 4.4 mmol/L (3.5-5.1); Sodium 146 mmol/L (136-145)
[2022-12-04 03:37] LABS: Anion Gap 20 mmol/L (10-20); Carbon Dioxide 12 mmol/L (22-29)
[2022-12-04 03:39] LABS: Glucose 178 mg/dL (70-105)
[2022-12-04 03:42] LABS: Calc. Creatinine Clearance 93 mL/min (70-130); Estimated GFR 97
[2022-12-04 03:43] LABS: BUN (Urea Nitrogen) 10 mg/dL (7.0-18.7)
[2022-12-04] MEDS ORDERED: diphenhydrAMINE 50 MG/ML VIAL IVP SCH (05:30)
[2022-12-04 05:49] LABS: Anion Gap 15 mmol/L (10-20); BUN (Urea Nitrogen) 9 mg/dL (7.0-18.7); Calc. Creatinine Clearance 94 mL/min (70-130); Calcium 7.5 mg/dL (7.8-10.44); Carbon Dioxide 17 mmol/L (22-29); Chloride 115 mmol/L (98-107); Estimated GFR 98; Glucose 142 mg/dL (70-105); Potassium 3.7 mmol/L (3.5-5.1); Sodium 143 mmol/L (136-145)
[2022-12-04] MEDS ORDERED: Dextrose 5% in Water 1,000 ML IV PRN (06:08)
[2022-12-04] MEDS ORDERED: Glucagon 1 MG/ML KIT IM PRN (06:08)
[2022-12-04] MEDS ORDERED: Dextrose 50% Abboject 50 ML SYRINGE SLOW IVP PRN (06:08)
[2022-12-04] MEDS: Famotidine 20 MG TAB PO SCH ×2 (08:28→21:02)
[2022-12-04 09:30] LABS: pH (venous) 7.029 (7.32-7.43)
[2022-12-04] MEDS ORDERED: Insulin Glargine 30 UNITS/0.3 ML VIAL SC STA (09:43)
[2022-12-04] MEDS ORDERED: Insulin Glargine 30 UNITS/0.3 ML VIAL SC SCH ×2 (09:49→21:00)
[2022-12-04] MEDS: HumaLOG 300 UNITS/3 ML VIAL SC PRN ×2 (10:09→12:42)
[2022-12-04] MEDS: Sodium Chloride 0.9% 1,000 ML IV SCH ×2 (10:10→23:13)
[2022-12-04] MEDS ORDERED: Sodium Chloride 0.9% 1,000 ML IV SCH (15:15)
[2022-12-04] MEDS: Insulin Glargine 30 UNITS/0.3 ML VIAL SC SCH (21:04)
[2022-12-05] MEDS: HumaLOG 300 UNITS/3 ML VIAL SC PRN (05:32)
[2022-12-05] MEDS: Famotidine 20 MG TAB PO SCH (09:01)
[2022-12-05] MEDS: Insulin Glargine 30 UNITS/0.3 ML VIAL SC SCH (09:02)
[2022-12-05 12:11] VITALS: TEMP 97.1
[2022-12-05] MEDS: Sodium Chloride 0.9% 1,000 ML IV SCH (12:48)
== END 2022-12-05 13:15 | disposition home or self-care (01) | DRG 639 ==
LOC: ERS 17:27 → IMCU/EMU 19:31
PROVIDERS: ADMIT Student in an Organized Health Care Education/Training Program; ATTEND Internal Medicine
PROC: 4A133R1 Monitoring of Arterial Saturation, Peripheral, Percutaneous Approach (ICD-10-PCS; principal; 2022-12-03)
DX: E10.10 Type 1 diabetes mellitus with ketoacidosis without coma (principal); F14.10 Cocaine abuse, uncomplicated; E10.65 Type 1 diabetes mellitus with hyperglycemia; D64.9 Anemia, unspecified; F10.90 Alcohol use, unspecified, uncomplicated; F32.A Depression, unspecified; F41.9 Anxiety disorder, unspecified; Z98.890 Other specified postprocedural states; Z79.4 Long term (current) use of insulin; Z71.51 Drug abuse counseling and surveillance of drug abuser; E87.5 Hyperkalemia
CPT/HCPCS: 36415; 36416; 71045; 80053; 80306; 80307; 81001; 82010; 82550; 82805; 83690; 83735; 84100; 84484; 84703; 85025; 93005; J1200; J1630; J1815; J2270; J3475; J3480; J3490; J7050; Q0162

== ENCOUNTER 2023-02-15 07:56 | Inpatient (IN) | payer SELFPAY ==
[2023-02-15 08:24] LABS: #Basophils 0.1 thou/uL (0.0-0.2); #Eosinphils 0.1 thou/uL (0.0-0.7); #Monocytes 0.4 thou/uL (0.11-0.59); #Neutrophils 7.2 thou/uL (1.40-6.50); %Basophils 0.9 % (0.0-1.0); %Lymphocytes 23.8 % (21.0-51.0); %Monocytes 3.7 % (0.0-10.0); %Neutrophils 70.1 % (42.0-75.0); Hemoglobin 15.7 g/dL (12.0-16.0); Mean Corpuscular HGB CONC 31.4 g/dL (32.0-36.0); Mean Corpuscular Hemoglobin 25.4 pg (27.0-31.0); Mean Corpuscular Volume 80.9 fl (78.0-98.0); Mean Platelet Volume 8.9 fL (7.4-10.4); Platelet Count 486 10x3/uL (130-400); RBC Distribution Width 14.9 % (11.5-14.5); Red Blood Cell (RBC) Count 6.18 mill/uL (4.20-5.40); White Blood Cell (WBC) Count 10.3 10x3/uL (4.8-10.8)
[2023-02-15 08:37] LABS: BHCG - Serum Negative (NEGATIVE); Pregs Control Background? CLEAR/WHITE (CLR/WHITE); Pregs Control Bar Appear? YES (CONTROL BAR)
[2023-02-15 08:42] LABS: Bacteria/HPF None Seen HPF (None Seen); Bilirubin Negative (Negative); Blood, Urine Negative (Negative); CAUTI Indications for Culture Pelvic or flank pain; Clarity Clear (Clear); Glucose, Urine (Dipstick) Greater than 1000 mg/dL (Negative); Ketone, Urine Greater than 150 mg/dL (Negative); Leukocyte Negative Leu/uL (Negative); Nitrite Negative (Negative); Protein, Urine (Dipstick) 20 mg/dL (Neg-Trace); RBC/HPF 0-3 HPF (0-3); Specific Gravity, Urine 1.033 (1.002-1.036); Squamous Epithelial 0-3 HPF (0-3); Urobilinogen Normal mg/dL (Less than 2); WBC/HPF 0-3 HPF (0-3)
[2023-02-15 08:43] LABS: Urine Culture Reflex No No
[2023-02-15] MEDS ORDERED: Ondansetron PF 4 MG/2 ML Vial ONE (08:59)
[2023-02-15] MEDS ORDERED: HYDROmorphone 0.5 MG/0.5 ML SYRINGE ONE (08:59)
[2023-02-15] MEDS ORDERED: Pantoprazole 40 MG VIAL ONE (09:00)
[2023-02-15 09:22] LABS: ALT (SGPT) 16 U/L (8-55); AST (SGOT) 17 U/L (5-34); Albumin 5.1 g/dL (3.5-5.0); Alkaline Phosphatase 200 U/L (40-110); Anion Gap 26 mmol/L (10-20); BUN (Urea Nitrogen) 14 mg/dL (7.0-18.7); Bilirubin, Total 0.4 mg/dL (0.2-1.2); Calc. Creatinine Clearance 0 mL/min (70-130); Chloride 102 mmol/L (98-107); Estimated GFR 54; Globulin 5.3 g/dL (2.4-3.5); Lipase 88 U/L (8-78); Potassium 4.8 mmol/L (3.5-5.1); Protein, Total 10.4 g/dL (6.0-8.3); Sodium 131 mmol/L (136-145)
[2023-02-15 09:28] LABS: Carbon Dioxide 8 mmol/L (22-29); Glucose 411 mg/dL (70-105)
[2023-02-15] MEDS ORDERED: NS 0.9% w/ 20 MEQ KCL 1,000 ML ONE (09:40)
[2023-02-15] MEDS ORDERED: INSULIN REGULAR IN 0.9 % NACL 100 UNITS/100 ML BAG ONE (09:40)
[2023-02-15 09:42] LABS: Phosphorus 3.8 mg/dL (2.3-4.7)
[2023-02-15 09:46] LABS: Magnesium 2.3 mg/dL (1.6-2.6)
[2023-02-15 09:50] LABS: Actual Bicarbonate (HCO3v) 23.2 mEq/L (22-28); Base Excess -1.7 mEq/L (-2.0 to +3.0); Calcium, Ionized (venous) 1.16 mmol/L (1.16-1.32); Chloride (VBG) 99 mmol/L (98-106); Hematocrit-VBG 37 % (36.0-47.0); Hemoglobin (Hb) 12.6 g/dL (11.7-15.5); Potassium (VBG) 3.53 mmol/L (3.70-5.30); Sodium 135 mmol/L (133-146); pH (venous) 7.383 (7.32-7.43)
[2023-02-15] MEDS ORDERED: Electrolyte Replacement Protocol 1 EACH IVPB ONE (11:20)
[2023-02-15] MEDS ORDERED: Glucagon 1 MG/ML KIT IM PRN (11:20)
[2023-02-15] MEDS ORDERED: Dextrose 5 %-0.45 % NaCl 1,000 ML IV PRN (11:20)
[2023-02-15] MEDS ORDERED: HumaLOG 300 UNITS/3 ML VIAL SC PRN ×2 (11:20)
[2023-02-15] MEDS ORDERED: Sodium Chloride 0.9% 1,000 ML IV PRN ×4 (11:20)
[2023-02-15] MEDS ORDERED: Dextrose 5% in Water 1,000 ML IV PRN (11:20)
[2023-02-15] MEDS ORDERED: NS 0.9% w/ 20 MEQ KCL 1,000 ML IV PRN ×2 (11:20)
[2023-02-15] MEDS ORDERED: Dextrose 50% Abboject 50 ML SYRINGE SLOW IVP PRN ×2 (11:20)
[2023-02-15] MEDS ORDERED: oxyCODONE 5 MG TAB PO PRN (11:25)
[2023-02-15] MEDS ORDERED: HUMULIN R 100 UNITS in Sodium Chloride 0.9% 100 ML IVPB SCH ×2 (11:30→18:15)
[2023-02-15] MEDS ORDERED: Acetaminophen 500 MG TAB PO SCH ×3 (11:45→21:00)
[2023-02-15] MEDS ORDERED: Electrolyte Replacement Protocol FS PRN (12:00)
[2023-02-15 12:04] VITALS: BMI 25.8
[2023-02-15] MEDS ORDERED: Morphine 2 MG/ML VIAL SLOW IVP SCH (12:15)
[2023-02-15] MEDS ORDERED: fentaNYL 50 mcg/mL 1 mL Vial SLOW IVP SCH ×2 (12:15→13:00)
[2023-02-15] MEDS: D5 1/2 NS w/20 mEq KCL 1,000 ML IV PRN ×2 (12:36→16:38)
[2023-02-15 12:44] LABS: Anion Gap 18 mmol/L (10-20); BUN (Urea Nitrogen) 11 mg/dL (7.0-18.7); Calc. Creatinine Clearance 96 mL/min (70-130); Calcium 7.9 mg/dL (7.8-10.44); Carbon Dioxide 8 mmol/L (22-29); Chloride 113 mmol/L (98-107); Estimated GFR 92; Glucose 189 mg/dL (70-105); Potassium 4.4 mmol/L (3.5-5.1); Sodium 135 mmol/L (136-145)
[2023-02-15] MEDS: fentaNYL 50 mcg/mL 1 mL Vial SLOW IVP PRN ×2 (15:44→19:34)
[2023-02-15 16:07] LABS: Anion Gap 11 mmol/L (10-20); BUN (Urea Nitrogen) 7 mg/dL (7.0-18.7); Calc. Creatinine Clearance 141 mL/min (70-130); Calcium 7.6 mg/dL (7.8-10.44); Carbon Dioxide 12 mmol/L (22-29); Chloride 115 mmol/L (98-107); Estimated GFR 125; Glucose 268 mg/dL (70-105); Potassium 3.9 mmol/L (3.5-5.1); Sodium 134 mmol/L (136-145)
[2023-02-15 16:14] LABS: Amphetamine Not Detected (NotDetected); Barbiturates Screen Not Detected (NotDetected); Benzodiazepine Screen Not Detected (NotDetected); Cocaine Metabolite Screen Not Detected (NotDetected); Methadone Not Detected (NotDetected); Methamphetamine Not Detected (NotDetected); Opiate Screen Not Detected (NotDetected); Oxycodone Screen Not Detected (NotDetected); Phencyclidine (PCP) Not Detected (NotDetected); THC/Cannabinoid Screen Not Detected (NotDetected); Tricyclic Screen Not Detected (NotDetected)
[2023-02-15] MEDS ORDERED: D5 LR w/20 mEq KCL 1,000 ML IV SCH (17:30)
[2023-02-15] MEDS ORDERED: Insulin Glargine 30 UNITS/0.3 ML VIAL SC SCH ×2 (18:00→21:00)
[2023-02-15 20:02] VITALS: TEMP 98.2
[2023-02-15 20:33] LABS: Anion Gap 11 mmol/L (10-20); BUN (Urea Nitrogen) 7 mg/dL (7.0-18.7); Calc. Creatinine Clearance 114 mL/min (70-130); Calcium 8.1 mg/dL (7.8-10.44); Carbon Dioxide 14 mmol/L (22-29); Chloride 114 mmol/L (98-107); Estimated GFR 113; Glucose 184 mg/dL (70-105); Potassium 3.7 mmol/L (3.5-5.1); Sodium 135 mmol/L (136-145)
[2023-02-15] MEDS ORDERED: Meropenem 1 GM in Sodium Chloride 0.9% 100 ML IVPB SCH (22:00)
[2023-02-16] MEDS ORDERED: Insulin Glargine 30 UNITS/0.3 ML VIAL SC SCH (09:00)
[2023-02-16] MEDS ORDERED: Enoxaparin 40 MG (0.4 mL) SYRINGE SC SCH (09:00)
== END 2023-02-15 23:05 | disposition left against medical advice (07) | DRG 638 ==
LOC: ERS 07:56 → CCU 10:02
PROVIDERS: ADMIT Hospitalist; ATTEND Hospitalist
DX: E10.10 Type 1 diabetes mellitus with ketoacidosis without coma (principal); E87.1 Hypo-osmolality and hyponatremia; N17.9 Acute kidney failure, unspecified; F41.9 Anxiety disorder, unspecified; F32.A Depression, unspecified; Z88.5 Allergy status to narcotic agent; Z79.4 Long term (current) use of insulin; Z79.899 Other long term (current) drug therapy; Z87.891 Personal history of nicotine dependence
CPT/HCPCS: 36415; 36416; 71045; 74177; 80053; 80306; 81001; 82010; 82805; 83605; 83690; 83735; 84100; 84703; 85025; C9113; J1170; J1815; J2405; J3010; J3480; J3490; J7999

== ENCOUNTER 2023-05-02 | Emergency (ER) | payer SELFPAY | END 2023-05-02 13:17 | disposition short-term general hospital (02) | DX: R10.30 Lower abdominal pain, unspecified (principal); E10.10 Type 1 diabetes mellitus with ketoacidosis without coma ==

== ENCOUNTER 2023-05-09 18:06 | Inpatient (IN) | payer SELFPAY ==
[~2023-05-09 18:06] MED LIST changes: -ISOVUE-370 76%-LOCM 1 ML ONE; +Iopamidol-370 76% 500 ML MDV (1 ML CHARGE) ONE
[2023-05-09 19:03] LABS: #Monocytes 0.3 thou/uL (0.11-0.59); #Neutrophils 8.5 thou/uL (1.40-6.50); %Basophils 0.4 % (0.0-1.0); %Eosinophils 0.4 % (0.0-10.0); %Lymphocytes 10.4 % (21.0-51.0); %Monocytes 3.3 % (0.0-10.0); %Neutrophils 85.3 % (42.0-75.0); Hematocrit 42.5 % (36.0-47.0); Hemoglobin 13.4 g/dL (12.0-16.0); Mean Corpuscular HGB CONC 31.5 g/dL (32.0-36.0); Mean Corpuscular Hemoglobin 24.8 pg (27.0-31.0); Mean Corpuscular Volume 78.7 fl (78.0-98.0); Mean Platelet Volume 9.2 fL (7.4-10.4); Platelet Count 459 10x3/uL (130-400); RBC Distribution Width 14.3 % (11.5-14.5)
[2023-05-09] MEDS ORDERED: Ondansetron PF 4 MG/2 ML Vial ONE (19:06)
[2023-05-09] MEDS ORDERED: fentaNYL 50 mcg/mL 1 mL Vial ONE (19:13)
[2023-05-09 19:14] LABS: BHCG - Serum Negative (NEGATIVE); Pregs Control Background? CLEAR/WHITE (CLR/WHITE); Pregs Control Bar Appear? YES (CONTROL BAR)
[2023-05-09 19:15] LABS: ALT (SGPT) 12 U/L (8-55); AST (SGOT) 13 U/L (5-34); Albumin 5.1 g/dL (3.5-5.0); Alkaline Phosphatase 125 U/L (40-110); Anion Gap 34 mmol/L (10-20); BUN (Urea Nitrogen) 15 mg/dL (7.0-18.7); Bilirubin, Total 0.5 mg/dL (0.2-1.2); Calc. Creatinine Clearance 0 mL/min (70-130); Calcium 10.8 mg/dL (7.8-10.44); Carbon Dioxide 10 mmol/L (22-29); Chloride 95 mmol/L (98-107); Estimated GFR 45; Globulin 4.9 g/dL (2.4-3.5); Glucose 374 mg/dL (70-105); Potassium 4.4 mmol/L (3.5-5.1); Sodium 135 mmol/L (136-145)
[2023-05-09 19:16] LABS: Acetaminophen Less than 10 mcg/mL (10.0-30.0); Alcohol Less than 10.0 mg/dL (Less than 10); Lipase 17 U/L (8-78); Magnesium 2.3 mg/dL (1.6-2.6); Salicylate Less than 8.0 mg/dL (15.0-30.0)
[2023-05-09 19:20] LABS: Troponin I 0.013 ng/mL (< 0.028)
[2023-05-09] MEDS ORDERED: LORazepam 2 MG/ML SYR.(CARPUJECT) ONE (19:34)
[2023-05-09] MEDS ORDERED: INSULIN REGULAR IN 0.9 % NACL 100 UNITS/100 ML BAG ONE (19:44)
[2023-05-09] MEDS ORDERED: Sodium Bicarb 50 mEq/50 ML VIAL ONE (19:44)
[2023-05-09] MEDS ORDERED: NS 0.9% w/ 20 MEQ KCL 1,000 ML ONE ×2 (19:44→22:28)
[2023-05-09] MEDS ORDERED: Morphine 4 MG/ML VIAL ONE (20:00)
[2023-05-09] MEDS ORDERED: Metoclopramide HCl 10 MG (2 mL) VIAL ONE (21:15)
[2023-05-09] MEDS ORDERED: Sodium Chloride 0.9% 100 ML ONE (21:30)
[2023-05-09] MEDS ORDERED: Piperacillin/Tazobactam 3.375 GM VIAL ONE (21:30)
[2023-05-09 21:32] LABS: Bacteria/HPF None Seen HPF (None Seen); Bilirubin Negative (Negative); Blood, Urine Negative (Negative); CAUTI Indications for Culture Alt mental st,lethar; Clarity Clear (Clear); Glucose, Urine (Dipstick) Greater than 1000 mg/dL (Negative); Ketone, Urine Greater than 150 mg/dL (Negative); Leukocyte Negative Leu/uL (Negative); Nitrite Negative (Negative); Protein, Urine (Dipstick) 10 mg/dL (Neg-Trace); RBC/HPF None Seen HPF (0-3); Squamous Epithelial 0-3 HPF (0-3); Urobilinogen Normal mg/dL (Less than 2); WBC/HPF 0-3 HPF (0-3)
[2023-05-09 21:33] LABS: Urine Culture Reflex No No
[2023-05-09 21:39] LABS: Amphetamine Not Detected (NotDetected); Barbiturates Screen Not Detected (NotDetected); Benzodiazepine Screen Not Detected (NotDetected); Cocaine Metabolite Screen Not Detected (NotDetected); Methadone Not Detected (NotDetected); Methamphetamine Not Detected (NotDetected); Opiate Screen Not Detected (NotDetected); Oxycodone Screen Not Detected (NotDetected); Phencyclidine (PCP) Not Detected (NotDetected); THC/Cannabinoid Screen Detected (NotDetected); Tricyclic Screen Not Detected (NotDetected)
[2023-05-09] MEDS ORDERED: Electrolyte Replacement Protocol 1 EACH IVPB SCH (21:52)
[2023-05-09] MEDS ORDERED: Dextrose 5 %-0.45 % NaCl 1,000 ML IV PRN (21:52)
[2023-05-09] MEDS ORDERED: Dextrose 50% Abboject 50 ML SYRINGE SLOW IVP PRN (21:52)
[2023-05-09] MEDS ORDERED: NS 0.9% w/ 20 MEQ KCL 1,000 ML IV PRN (21:52)
[2023-05-09] MEDS ORDERED: Sodium Chloride 0.9% 1,000 ML IV PRN ×4 (21:52)
[2023-05-09] MEDS ORDERED: Acetaminophen 325 MG TAB PO PRN (21:52)
[2023-05-09] MEDS ORDERED: HUMULIN R 100 UNITS in Sodium Chloride 0.9% 100 ML IVPB SCH (22:00)
[2023-05-09] MEDS: Vancomycin (BATCH) 1.5 GM in Premix 1 BAG IVPB SCH (22:18)
[2023-05-09 22:42] LABS: Lactic Acid 1.8 mmol/L (0.5-2.2)
[2023-05-09] MEDS: NS 0.9% w/ 20 MEQ KCL 1,000 ML IV PRN (22:51)
[2023-05-09] MEDS ORDERED: Morphine 2 MG/ML VIAL ONE (23:47)
[2023-05-09] MEDS: Morphine 2 MG/ML VIAL SLOW IVP SCH (23:59)
[2023-05-10] LABS: Anion Gap 16 mmol/L (10-20); BUN (Urea Nitrogen) 12 mg/dL (7.0-18.7); Calc. Creatinine Clearance 0 mL/min (70-130); Calcium 8.7 mg/dL (7.8-10.44); Carbon Dioxide 14 mmol/L (22-29); Chloride 111 mmol/L (98-107); Estimated GFR 80; Glucose 125 mg/dL (70-105); Magnesium 1.9 mg/dL (1.6-2.6); Potassium 4.2 mmol/L (3.5-5.1); Sodium 137 mmol/L (136-145)
[2023-05-10] MEDS: D5 1/2 NS w/20 mEq KCL 1,000 ML IV PRN
[2023-05-10] MEDS ORDERED: Ondansetron PF 4 MG/2 ML Vial ONE (01:09)
[2023-05-10] MEDS ORDERED: Magnesium 2 GM/50 ML BAG (IN WATER) ONE (01:10)
[2023-05-10] MEDS: Ondansetron PF 4 MG/2 ML Vial IVP PRN (01:16)
[2023-05-10] MEDS: Magnesium 2 GM/50 ML(in water) 2 GM in Premix 1 BAG IVPB SCH (01:17)
[2023-05-10 02:25] VITALS: BMI 21.2
[2023-05-10 02:44] LABS: Anion Gap 13 mmol/L (10-20); BUN (Urea Nitrogen) 10 mg/dL (7.0-18.7); Calc. Creatinine Clearance 76 mL/min (70-130); Calcium 8.5 mg/dL (7.8-10.44); Carbon Dioxide 16 mmol/L (22-29); Chloride 109 mmol/L (98-107); Estimated GFR 78; Glucose 270 mg/dL (70-105); Sodium 134 mmol/L (136-145)
[2023-05-10 04:53] LABS: Phosphorus 2.3 mg/dL (2.3-4.7)
[2023-05-10] MEDS ORDERED: Morphine 2 MG/ML VIAL ONE ×2 (04:53→05:50)
[2023-05-10] MEDS: Morphine 2 MG/ML VIAL SLOW IVP SCH ×2 (04:59→06:25)
[2023-05-10 05:07] LABS: Anion Gap 14 mmol/L (10-20); BUN (Urea Nitrogen) 10 mg/dL (7.0-18.7); Calc. Creatinine Clearance 78 mL/min (70-130); Calcium 8.7 mg/dL (7.8-10.44); Carbon Dioxide 17 mmol/L (22-29); Chloride 111 mmol/L (98-107); Estimated GFR 81; Glucose 102 mg/dL (70-105); Magnesium 2.5 mg/dL (1.6-2.6); Potassium 3.6 mmol/L (3.5-5.1); Sodium 138 mmol/L (136-145)
[2023-05-10 06:06] LABS: #Eosinphils 0.1 thou/uL (0.0-0.7); #Monocytes 0.8 thou/uL (0.11-0.59); %Basophils 0.3 % (0.0-1.0); %Eosinophils 0.7 % (0.0-10.0); %Lymphocytes 21.9 % (21.0-51.0); %Neutrophils 68.9 % (42.0-75.0); Mean Corpuscular HGB CONC 32.8 g/dL (32.0-36.0); Mean Corpuscular Hemoglobin 25.7 pg (27.0-31.0); Mean Corpuscular Volume 78.3 fl (78.0-98.0); Mean Platelet Volume 8.7 fL (7.4-10.4); Platelet Count 321 10x3/uL (130-400); RBC Distribution Width 14.6 % (11.5-14.5); Red Blood Cell (RBC) Count 3.97 mill/uL (4.20-5.40); White Blood Cell (WBC) Count 10.1 10x3/uL (4.8-10.8)
[2023-05-10 06:16] LABS: Anion Gap 14 mmol/L (10-20); BUN (Urea Nitrogen) 10 mg/dL (7.0-18.7); Calc. Creatinine Clearance 88 mL/min (70-130); Calcium 8.6 mg/dL (7.8-10.44); Carbon Dioxide 16 mmol/L (22-29); Chloride 111 mmol/L (98-107); Estimated GFR 93; Glucose 141 mg/dL (70-105); Potassium 3.8 mmol/L (3.5-5.1); Sodium 137 mmol/L (136-145)
[2023-05-10] MEDS: Insulin Glargine 30 UNITS/0.3 ML VIAL SC SCH (07:31)
[2023-05-10] MEDS ORDERED: NS 0.9% w/ 20 MEQ KCL 1,000 ML ONE (08:19)
[2023-05-10] MEDS ORDERED: Famotidine 20 MG TAB ONE (08:54)
[2023-05-10] MEDS ORDERED: Doxycycline 100 MG CAP ONE (08:54)
[2023-05-10] MEDS ORDERED: Ciprofloxacin 500 MG TAB ONE ×2 (08:54→09:45)
[2023-05-10] MEDS ORDERED: Enoxaparin 40 MG (0.4 mL) SYRINGE ONE (08:55)
[2023-05-10] MEDS ORDERED: D5 1/2 NS w/20 mEq KCL 1,000 ML ONE (08:56)
[2023-05-10 09:05] LABS: Hematocrit 31.1 % (36.0-47.0); Hemoglobin 10.2 g/dL (12.0-16.0)
[2023-05-10] MEDS: Enoxaparin 40 MG (0.4 mL) SYRINGE SC SCH (09:37)
[2023-05-10] MEDS: Ciprofloxacin 500 MG TAB PO SCH (09:37)
[2023-05-10] MEDS: Famotidine 20 MG TAB PO SCH (09:37)
[2023-05-10] MEDS: Doxycycline 100 MG CAP PO SCH (09:37)
[2023-05-10] MEDS ORDERED: Glucagon 1 MG/ML KIT IM PRN (10:50)
[2023-05-10] MEDS ORDERED: Dextrose 50% Abboject 50 ML SYRINGE SLOW IVP PRN (10:50)
[2023-05-10] MEDS ORDERED: Dextrose 5% in Water 1,000 ML IV PRN (10:50)
[2023-05-10] MEDS ORDERED: Morphine 4 MG/ML VIAL ONE (11:44)
[2023-05-10] MEDS: Morphine 4 MG/ML VIAL SLOW IVP PRN (11:47)
[2023-05-10] MEDS: FLU VACC QS2023-24(6MOS UP)/PF 60 MCG/0.5 ML SYRINGE IM ONE (15:58)
[2023-05-10] MEDS: HumaLOG 300 UNITS/3 ML VIAL SC PRN (20:46)
[2023-05-11 08:20] VITALS: BP 128/88; TEMP 98
[2023-05-11] MEDS: Insulin Glargine 30 UNITS/0.3 ML VIAL SC SCH (08:35)
== END 2023-05-11 13:25 | disposition home or self-care (01) | DRG 638 ==
LOC: ERS 18:06 → ERHOLD 21:31 → T4-A 05-10 13:52
PROVIDERS: ADMIT Internal Medicine; ATTEND Internal Medicine
PROC: 0T9B70Z Drainage of Bladder with Drainage Device, Via Natural or Artificial Opening (ICD-10-PCS; principal; 2023-05-09)
DX: E10.10 Type 1 diabetes mellitus with ketoacidosis without coma (principal); L03.314 Cellulitis of groin; N17.9 Acute kidney failure, unspecified; Z79.4 Long term (current) use of insulin; Z79.899 Other long term (current) drug therapy; F41.9 Anxiety disorder, unspecified; F32.A Depression, unspecified; Z98.890 Other specified postprocedural states; Z87.891 Personal history of nicotine dependence; F12.90 Cannabis use, unspecified, uncomplicated
CPT/HCPCS: 36415; 36416; 71045; 74177; 80048; 80053; 80306; 80307; 81001; 82010; 83605; 83690; 83735; 83930; 84100; 84484; 84703; 85025; 87040; 87086; 93005; J1650; J1815; J2060; J2270; J2272; J2405; J2543; J2765; J3010; J3370; J3475; J3480; J3490; Q9967